=== PATIENT | male | born 1975 | race Two or more races ===

== ENCOUNTER 2025-01-21 02:44 | Observation (INO) | payer MEDICAID, SELFPAY ==
[2025-01-21] VITALS (10 sets, daily range): BP systolic 133–175; BP diastolic 82–104; PULSE 85–124; RESP 16–22; TEMP 36.4–37; O2SAT 98–100; BMI 31.0; BMI 28.7
--- NOTE | 2025-01-21 03:31 | PD.EDRME ---
Rapid Medical Screening Exam E Arrival date/time: 01/21/25 02:44 49M with history of DM (on insulin), HTN, CAD (s/p CABG), and daily marijuana use presents to ED with several days of epigastric pain and N/V. Patient hasn't had pancreatitis or DKA before. Chief Complaint: Abdominal Pain Vital signs: Vital Signs Temperature 97.9 F 01/21/25 03:02 Pulse Rate 124 H 01/21/25 03:02 Respiratory Rate 22 H 01/21/25 03:02 Blood Pressure 148/103 H 01/21/25 03:02 Pulse Oximetry (%) 98 01/21/25 03:02 Oxygen Delivery Method Room Air 01/21/25 03:02
[2025-01-21 03:56] LABS: Lactate (Lactic Acid) 3.4 mMol/L (0.4-2.0)
[2025-01-21 03:57] LABS: Base Excess, Venous -4 (-3-3); O2 Saturation, Venous 52 % (96-97); PCO2, Venous 22 mmHg (36-56); PO2, Venous 25 mmHg (15-58); pH, Venous 7.48 (7.33-7.66)
[2025-01-21 04:00] LABS: Basophils % (Auto) 0 % (0-2.5); Eosinophils % (Auto) 0 % (0-10); Hematocrit 48.3 % (41.0-53.0); Hemoglobin 17.2 g/dL (13.5-16.0); Immature Granulocytes % (Auto) 0 % (0-0); Immature Granulocytes Auto 0.02 Thou/mm3 (0.00-0.00); Lymphocytes # (Auto) 1.2 Thou/mm3 (1.0-4.8); Lymphocytes % (Auto) 17 % (10-50); Mean Corpuscular HGB Conc 35.6 g/dl (31.0-37.0); Mean Corpuscular Hemoglobin 29.7 pg (25.0-35.0); Mean Corpuscular Volume 83 fL (80-100); Monocytes # (Auto) 0.5 Thou/mm3 (0.0-0.8); Monocytes % (Auto) 6 % (0-12); Neutrophils # (Auto) 5.8 Thou/mm3 (1.8-7.7); Neutrophils % (Auto) 77 % (37-80); Nucleated Red Blood Cell % 0 /100 WBC (0); Platelet Count 231 Thou/mm3 (140-440); RDW Standard Deviation 37.1 fL (35.1-43.9); White Blood Count 7.5 Thou/mm3 (3.8-10.6)
[2025-01-21 04:17] LABS: Beta Hydroxybutyrate 4.4 mmol/L (<0.6)
[2025-01-21 04:35] LABS: Alanine Aminotransferase 14 U/L (10-49); Albumin, Serum 4.7 gm/dL (3.5-5.0); Albumin/Globulin Ratio 1.3 (1.2-2.2); Alkaline Phosphatase 101 U/L (46-116); Anion Gap 19 (7-16); Aspartate Amino Transferase < 8 U/L (0-34); BUN/Creatinine Ratio 16 Ratio (12-20); Blood Urea Nitrogen 51 mg/dL (9-23); Carbon Dioxide 15.8 mMol/L (20.0-31.0); Chloride 96 mMol/L (98-107); Creatinine (Component) 3.2 mg/dL (0.6-1.3); Globulin 3.7 gm/dL (2.3-3.5); Lipase 140 U/L (12-53); Magnesium 2.1 mg/dL (1.6-2.6); Osmolality,Calculated 297 (275-295); Phosphorous 2.4 mg/dL (2.4-5.1); Potassium 5.8 mMol/L (3.4-5.1); Procalcitonin 0.08 ng/ml (0.0-0.49); Sodium 131 mMol/L (136-145); Total Protein 8.4 gm/dL (5.7-8.2); Triglycerides 277 mg/dL (30-150); eGFR 23 See Note
[2025-01-21 04:38] LABS: Glucose 479 mg/dL (74-106)
--- NOTE | 2025-01-21 04:41 | XR_ITS ---
Examination: CT abdomen and pelvis without contrast. Coronal 3-D reconstructions. Sagittal 2-D reconstructions. Date and time of exam:January 21, 2025 0457 hrs. Indications: Abdominal pain, vomiting elevated lipase and renal insufficiency on laboratory examination today today, CTDI: vol (mGy): 9.28 DLP: (mGycm): 524 Technique: Axial images of the abdomen have been obtained, 3 mm slice thickness Intravenous contrast material has not been administered. Low dose protocols were performed. One or more of the following dose reduction techniques were used; automated exposure control, adjustment of the mA and/or KV according to patient size, use of iterative reconstruction technique. Findings: Soft opacities in the right lower lobe consistent with pneumonia. No liver or splenic lesion. No gallstones. No pancreatic edema. Renal arterial calcifications. Normal appendix. No bowel obstruction Intact urinary bladder Impression: Right lower lobe pneumonia. Negative for pancreatitis
--- NOTE | 2025-01-21 05:24 | PRELIM_ITS ---
CT scan of the abdomen and pelvis without intravenous contrast (axial sections with sagittal and coronal reformats) January 21, 2025 0457 hours Clinical History: Elevated lipase and Cr Comparison: None. Findings: Small groundglass opacities in the right lower lobe. The liver, gallbladder, pancreas, spleen, kidneys and adrenals are unremarkable on this noncontrast study. No evidence of bowel obstruction. The appendix is within normal limits. There is no mesenteric or retroperitoneal adenopathy. The urinary bladder is unremarkable. There is no free fluid or free air. The osseous structures are unremarkable. Impression: No evidence of acute pancreatitis. Small groundglass opacities in the right lower lobe, probably infectious/inflammatory in etiology. Consider correlation with imaging of the chest. Report Electronically Signed By: Hank Molina 01/21/2025 5:23:39 AM [EST]
[2025-01-21] MEDS: DiphenhydrAMINE INJ 50 MG/ML VIAL 12.5 MG IVP (05:53)
[2025-01-21] MEDS: METOCLOPRAMIDE INJ 5 MG/ML VIAL 2 ML 10 MG IVP (05:53)
[2025-01-21] MEDS: INSULIN HUM REGULAR 1 UNIT/0.01 ML (PER UNIT) 10 UNIT IV (05:54)
[2025-01-21] MEDS: RINGERS LACTATED 1000 ML 1,000 ML 999 ML IV (05:54)
[2025-01-21 06:53] LABS: Reflex Lactate? Y
[2025-01-21] MEDS: INSULIN HUM REGULAR 1 UNIT/0.01 ML (PER UNIT) 5 UNIT IV (07:24)
[2025-01-21] MEDS: SODIUM CHLORIDE 0.9% 1000 ML 1,000 ML 999 ML IV (07:24)
--- NOTE | 2025-01-21 08:05 | PD.EDABDPN ---
ED Abdominal Pain RME/HPI General Chief Complaint: Abdominal Pain Stated complaint: ABD PAIN ,VOMITING Time seen by provider: 01/21/25 06:47 Arrival date/time: 01/21/25 02:44 RME / HPI RME / HPI narrative: 01/21/25 02:44 49M with history of DM (on insulin), HTN, CAD (s/p CABG), and daily marijuana use presents to ED with several days of epigastric pain and N/V. Patient hasn't had pancreatitis or DKA before. DR. MATUTE MAIN ED EVALUATION: 49 year old male with past medical history significant for diabetes type 2, hypertension, hypercholesterolemia, and marijuana use presents to the Emergency Department with complaints of abdominal pain, nausea and vomiting. Onset of symptoms last Saturday, 7 days ago. He states that he has been sick with vomiting and has not taken his diabetes medications, neither the morning pill nor the night insulin shot. Patient also reports chills but no fevers or sweating. Related Data Home Medications ?Medication ?Instructions ?Recorded ?Confirmed amlodipine 10 mg tablet (Norvasc) 10 mg PO QDAY #0 tabs 04/12/17 01/21/25 clopidogrel 75 mg tablet (Plavix) 75 mg PO QDAY #0 tabs 04/12/17 01/21/25 famotidine 20 mg tablet (Pepcid) 20 mg PO QDAY #0 tabs 04/12/17 01/21/25 metoprolol tartrate 25 mg tablet 50 mg PO BID #0 tabs 04/12/17 01/21/25 glipizide 10 mg tablet 10 mg PO ACBR #0 tabs 04/13/17 01/21/25 valsartan 160 mg tablet (Diovan) 160 mg PO QDAY #0 tabs 04/13/17 01/21/25 atorvastatin 40 mg tablet mg 01/21/25 insulin glargine 100 unit/mL (3 unit subcut 01/21/25 mL) subcutaneous pen (Basaglar KwikPen U-100 Insulin) sitagliptin phosphate 100 mg mg 01/21/25 tablet (Januvia) Previous Rx's ?Medication ?Instructions ?Recorded Lactobacillus rhamnosus GG 10 1 cap PO BID PRN bid #14 caps 04/14/17 billion cell capsule (Culturelle) Allergies Allergy/AdvReac Type Severity Reaction Status Date / Time No Known Allergies Allergy Verified 01/21/25 03:05 Review of Systems Review of Systems Systems Reviewed: All systems reviewed, normal except as documented Narrative Review of Systems: GEN: No fever, + chills, no weight loss EYES: No discharge, no visual changes, no pain HEENT: No ear pain, no congestion, no sore throat PULM: No shortness of breath, no cough, no congestion CV: No chest pain, no dyspnea on exertion, no palpitations GI: + nausea, + vomiting, no diarrhea, + abdominal pain, no constipation : No frequency, no urgency and no dysuria MUSC/SKEL: No joint pain, no back pain SKIN: No rash PSYCH: No hallucinations, no depression HEME/LYMPH: No easy bleeding or bruising tendencies NEURO: No weakness, no headache Past Medical History Social History SMOKING STATUS: Never smoker SUBSTANCE USE: does not use ALCOHOL: Never ED Exam Narrative Physical exam: GENERAL APPEARANCE: alert and oriented x 4, well-developed, well-nourished, no acute distress VITALS: All vitals were reviewed and the pulse ox is 99% on room air, which is normal according to my interpretation. HEENT: Normocephalic, atraumatic; pupils equal, round, reactive to light; EOMI; mucous membranes pink, moist; oropharynx clear NECK: Supple LUNGS: CTABL; no wheezes, no rales, no rhonchi HEART: Regular rate, regular rhythm; normal S1, S2; no murmurs ABDOMEN: non distended; normal BS; soft, no tenderness, no guarding, no rebound; no masses, no organomegaly, no hernia BACK: no CVA tenderness EXTREMITIES: atraumatic; no edema NEUROLOGIC: awake; alert and oriented x4; cranial nerves II-XII grossly intact; no focal sensory or motor deficits PSYCHIATRIC: appropriate mood and affect SKIN: warm, dry, normal color; no rashes Course Quality Measures none Orders Category Date Time Status Bedside Blood Glucose Q1HR Care 01/21/25 06:49 Completed Blood glucose [Bedside Blood Glucose] NOW Care 01/21/25 03:06 Completed EKG (ED ONLY) *Do not use* NOW Care 01/21/25 03:06 Completed Insert IV NOW Care 01/21/25 03:[address] abdomen pelvis wo con Stat Exams 01/21/25 04:41 Completed EKG (ED Only) Stat Exams 01/21/25 03:06 Ordered BMP [Basic Metabolic Panel] Stat Lab 01/21/25 10:56 Completed Beta Hydroxybutyrate Stat Lab 01/21/25 03:50 Completed CBC Stat Lab 01/21/25 03:50 Completed CMP [Comprehensive Metabolic Panel] Stat Lab 01/21/25 03:50 Completed Drug Screen,Urine Stat Lab 01/21/25 08:00 Completed Lactate (Lactic Acid) Stat Lab 01/21/25 03:50 Completed Lactic Acid, 3 HR Stat Lab 01/21/25 07:44 Completed Lipase Stat Lab 01/21/25 03:50 Completed Magnesium Stat Lab 01/21/25 03:50 Completed Phosphorous Stat Lab 01/21/25 03:50 Completed Procalcitonin Stat Lab 01/21/25 03:50 Completed Triglycerides Stat Lab 01/21/25 03:50 Completed Urinalysis, C/S if Indicated Stat Lab 01/21/25 08:00 Completed VBG [Venous Blood Gas] Stat Lab 01/21/25 03:50 Completed DiphenhydrAMINE INJ [Benadryl Inj] Med 01/21/25 03:30 Discontinued 12.5 mg IVP X1 ONE Insulin Regular Med 01/21/25 04:41 Discontinued 10 unit IV X1 ONE Insulin Regular Med 01/21/25 07:15 Discontinued 5 unit IV X1 ONE Metoclopramide Inj [Reglan Inj] Med 01/21/25 03:30 Discontinued 10 mg IVP X1 ONE Ringers Lactated 1000 ml [Lactated Ringers] 1,000 ml Med 01/21/25 03:30 Discontinued IV 999 mls/hr Sodium Chloride 0.9% 1000 ml [Ns] 1,000 ml Med 01/21/25 06:48 Discontinued IV 999 mls/hr Vital Signs Vital signs: Vital Signs Temperature 97.9 F 01/21/25 03:02 Pulse Rate 124 H 01/21/25 03:02 Respiratory Rate 22 H 01/21/25 03:02 Blood Pressure 148/103 H 01/21/25 03:02 Pulse Oximetry (%) 98 01/21/25 03:02 Oxygen Delivery Method Room Air 01/21/25 03:02 Procedures -ED EKG Interpretation #1: Date of EK01/21/25 Time of EK:54 Rate: 127 Interpretation: Interpreted by me Additional EKG comment: sinus rhythm, rate 127, Q wave in lead 3 Abdominal Pain MDM MDM Narrative MDM Narrative:: I, Michelle Guevara, am scribing for and in the presence of Dr. Matute. Patient data External records reviewed:: [facility] previous records (Reviewed last admission discharge dated 04/14/17, patient admitted for the following: Dog bite, fracture of the distal phalanx of right 4th digit) Clinical information provided by:: patient Social determinants that could affect healthcare access:: none (marijuana use) Patient has the following chronic illnesses:: Diabetes type 2, hypertension, hypercholesterolemia How is presenting disease/condition affected by chronic disease/condition?: exacerbated by Evaluation data The following diagnostics were reviewed and interpreted by me:: lab results, radiology exam(s) and EKG tracing(s) (EKG#1: EKG at 0254 hours. Interpreted by me: sinus rhythm, rate 127, Q wave in lead 3) Lab and/or radiology exams considered but not ordered:: none Interpretation Summary: Procedure(s): CT abdomen pelvis wo [facility] Accession Number(s): [id number] cc: Albert Gil MD; Hoang Olson MD; Ha Box PA-C~ Examination: CT abdomen and pelvis without contrast. Coronal 3-D reconstructions. Sagittal 2-D reconstructions. Date and time of exam:January 21, 2025 0457 hrs. Indications: Abdominal pain, vomiting elevated lipase and renal insufficiency on laboratory examination today today, CTDI: vol (mGy): 9.28 DLP: (mGycm): 524 Technique: Axial images of the abdomen have been obtained, 3 mm slice thickness Intravenous contrast material has not been administered. Low dose protocols were performed. One or more of the following dose reduction techniques were used; automated exposure control, adjustment of the mA and/or KV according to patient size, use of iterative reconstruction technique. Findings: Soft opacities in the right lower lobe consistent with pneumonia. No liver or splenic lesion. No gallstones. No pancreatic edema. Renal arterial calcifications. Normal appendix. No bowel obstruction Intact urinary bladder Impression: Right lower lobe pneumonia. Negative for pancreatitis Dictated By: Hoang Olson MD Medications / Prescriptions Medications or Prescriptions considered but not ordered:: none Medication administrations:: Medication Administration History Discontinued Medications Acetaminophen (Acetaminophen 325 Mg Tablet) 650 mg PO Q6H PRN PRN Reason: Fever >101.5 Stop: 02/20/25 12:17 Acetaminophen (Acetaminophen 325 Mg Tablet) 650 mg PO Q6H PRN PRN Reason: PAIN SCALE 1-3 (mild Stop: 02/20/25 12:17 Hydrocodone Bitart/Acetaminophen (Hydrocodone/Apap 10/325 Tab) 1 tab PO Q4H PRN PRN Reason: PAIN SCALE 4-6 (Moderate Stop: 01/26/25 12:17 Amlodipine Besylate (Amlodipine Besylate 5 Mg Tablet) 10 mg PO QDAY COUNTS INCLUDE 234 BEDS AT THE [facility] Stop: 02/21/25 08:59 Last Admin: 01/23/25 08:27 Dose: 10 mg Documented By: Admin: 01/22/25 08:28 Dose: 10 mg Documented By: NAGA Atorvastatin Calcium (Atorvastatin Calcium 10 Mg Tablet) 40 mg PO HS COUNTS INCLUDE 234 BEDS AT THE [facility] Stop: 02/20/25 20:59 Last Admin: 01/22/25 20:36 Dose: 40 mg Documented By: Admin: 01/21/25 21:54 Dose: 40 mg Documented By: RASHAD Clopidogrel Bisulfate (Clopidogrel Bisulfate 75 Mg Tablet) 75 mg PO QDAY COUNTS INCLUDE 234 BEDS AT THE [facility] Stop: 02/21/25 08:59 Last Admin: 01/23/25 08:27 Dose: 75 mg Documented By: Admin: 01/22/25 08:28 Dose: 75 mg Documented By: NAGA Dextrose (Dextrose 50%-Water Inj 50 Ml Syringe) 25 ml IV Q15MIN PRN PRN Reason: BG 50-70 responsive npo pt Stop: 02/20/25 12:17 Dextrose (Dextrose 50%-Water Inj 50 Ml Syringe) 50 ml IV Q15MIN PRN PRN Reason: BG <50 OR BG <70 & pt unresponsive Stop: 02/20/25 12:17 Diphenhydramine HCl (Diphenhydramine Inj 50 Mg/Ml Vial) 12.5 mg IVP X1 ONE Stop: 01/21/25 03:31 Last Admin: 01/21/25 05:53 Dose: 12.5 mg Documented By: MIRIAM Enoxaparin Sodium (Enoxaparin Sod Inj 40 Mg/0.4 Ml Syringe) 40 mg SC QDAY COUNTS INCLUDE 234 BEDS AT THE [facility] Stop: 02/05/25 08:59 Glucagon (Glucagon Inj 1 Mg Vial) 1 mg IM Q15MIN PRN PRN Reason: BG <70, and no IV access Heparin Sodium (Porcine) (Heparin Sod Inj 5000 Unit/Ml Vial) 5,000 unit SC BID ALEXANDRA Stop: 02/04/25 20:59 Last Admin: 01/23/25 08:28 Dose: 5,000 unit Documented By: TD Co-signed By: DUC Admin: 01/22/25 20:35 Dose: 5,000 unit Documented By: RC Co-signed By: MLYumiko Admin: 01/22/25 08:30 Dose: 5,000 unit Documented By: NAGA Co-signed By: DENICE Admin: 01/21/25 21:54 Dose: 5,000 unit Documented By: RASHAD Co-signed By: AM Lactated Ringer's (Lactated Ringers) 1,000 mls @ 999 mls/hr IV .Q1H1M ONE Stop: 01/21/25 04:30 Last Infusion: 01/21/25 06:55 Dose: Infused Documented By: DUC(2) Admin: 01/21/25 05:54 Dose: 999 mls/hr Documented By: MIRIAM Sodium Chloride (Ns) 1,000 mls @ 999 mls/hr IV .Q1H1M ONE Stop: 01/21/25 07:48 Last Infusion: 01/21/25 08:48 Dose: Infused Documented By: DUC(2) Admin: 01/21/25 07:24 Dose: 999 mls/hr Documented By: DUC(2) Lactated Ringer's (Lactated Ringers) 1,000 mls @ 200 mls/hr IV .Q5H COUNTS INCLUDE 234 BEDS AT THE [facility] Stop: 02/20/25 12:29 Last Admin: 01/22/25 16:26 Dose: Not Given Documented By: NAGA Non-Admin Reason: Cancelled by Provider Admin: 01/22/25 06:33 Dose: 200 mls/hr Documented By: Infusion: 01/22/25 06:16 Dose: Infused Documented By: Admin: 01/22/25 01:16 Dose: 200 mls/hr Documented By: Infusion: 01/22/25 00:15 Dose: Infused Documented By: Admin: 01/21/25 19:15 Dose: 200 mls/hr Documented By: Infusion: 01/21/25 19:07 Dose: Infused Documented By: Admin: 01/21/25 14:07 Dose: 200 mls/hr Documented By: DUC(2) Magnesium Sulfate (Magnesium Sulfate Ivpb) 2 gm in 50 mls @ 25 mls/hr IV X1 ONE Stop: 01/22/25 09:58 Last Admin: 01/22/25 08:27 Dose: 25 mls/hr Documented By: NAGA Lactated Ringer's (Lactated Ringers) 1,000 mls @ 100 mls/hr IV .Q10H ALEXANDRA Stop: 02/21/25 09:08 Last Admin: 01/23/25 04:37 Dose: 100 mls/hr Documented By: Infusion: 01/23/25 04:37 Dose: Infused Documented By: Admin: 01/22/25 19:29 Dose: 100 mls/hr Documented By: Infusion: 01/22/25 19:29 Dose: Infused Documented By: Admin: 01/22/25 10:13 Dose: 100 mls/hr Documented By: NAGA Insulin Glargine (Insulin Glargine (Lantus) 5 Unit/0.05 Ml (Per 5 Units)) 45 unit SC QDAY COUNTS INCLUDE 234 BEDS AT THE [facility] Stop: 02/20/25 12:29 Last Admin: 01/23/25 08:28 Dose: 45 unit Documented By: ALF Co-signed By: DUC Admin: 01/22/25 08:30 Dose: 45 unit Documented By: NAGA Co-signed By: DENICE Admin: 01/21/25 14:05 Dose: 45 unit Documented By: DUC(2) Co-signed By: FABIOLA Insulin Human Lispro (Insulin Lispro (Admelog) 1 Unit/0.01 Ml Unit) 0 unit SC Q6H ALEXANDRA; Protocol Stop: 02/20/25 12:29 Last Admin: 01/22/25 05:58 Dose: Not Given Documented By: RASHAD Non-Admin Reason: Patient Refused Admin: 01/22/25 01:04 Dose: Not Given Documented By: RASHAD Non-Admin Reason: Per Protocol Admin: 01/21/25 17:52 Dose: 2 unit Documented By: DONNY Co-signed By: CHINMAY Admin: 01/21/25 14:06 Dose: 5 unit Documented By: DUC(2) Co-signed By: FABIOLA Insulin Human Lispro (Insulin Lispro (Admelog) 1 Unit/0.01 Ml Unit) 0 unit SC AC COUNTS INCLUDE 234 BEDS AT THE [facility]; Protocol Stop: 02/21/25 09:14 Last Admin: 01/22/25 16:49 Dose: 2 unit Documented By: NAGA Co-signed By: SCARLETT Admin: 01/22/25 11:56 Dose: 5 unit Documented By: NAGA Co-signed By: SCARLETT Admin: 01/22/25 10:07 Dose: 5 unit Documented By: NAGA Co-signed By: ANA Insulin Human Lispro (Insulin Lispro (Admelog) 1 Unit/0.01 Ml Unit) 0 unit SC ACHS ALEXANDRA; Protocol Stop: 02/21/25 21:14 Last Admin: 01/23/25 07:27 Dose: Not Given Documented By: TD Non-Admin Reason: Per Protocol Admin: 01/22/25 21:24 Dose: 4 unit Documented By: JULIA Co-signed By: BRANDO Insulin Human Regular (Insulin Hum Regular 1 Unit/0.01 Ml (Per Unit)) 10 unit IV X1 ONE Stop: 01/21/25 04:42 Last Admin: 01/21/25 05:54 Dose: 10 unit Documented By: MIRIAM Co-signed By: JULIA(2) Insulin Human Regular (Insulin Hum Regular 1 Unit/0.01 Ml (Per Unit)) 5 unit IV X1 ONE; Protocol Stop: 01/21/25 07:16 Last Admin: 01/21/25 07:24 Dose: 5 unit Documented By: DUC(2) Co-signed By: NEYMAR Metoclopramide HCl (Metoclopramide Inj 5 Mg/Ml Vial 2 Ml) 10 mg IVP X1 ONE; Protocol Stop: 01/21/25 03:31 Last Admin: 01/21/25 05:53 Dose: 10 mg Documented By: MIRIAM Morphine Sulfate (Morphine Sulf Inj 10 Mg/Ml Vial) 2 mg IVP Q4H PRN PRN Reason: PAIN SCALE 7-10 (Severe Stop: 01/26/25 12:17 Ondansetron HCl (Ondansetron Inj 2 Mg/Ml Inj 2 Ml) 4 mg IV Q6H PRN; Protocol PRN Reason: NAUSEA OR VOMITING Stop: 02/20/25 12:17 Pantoprazole Sodium (Pantoprazole 40 Mg Tablet) 40 mg PO QDAY ALEXANDRA Stop: 02/20/25 12:29 Last Admin: 01/23/25 08:27 Dose: 40 mg Documented By: Admin: 01/22/25 08:28 Dose: 40 mg Documented By: Admin: 01/21/25 14:07 Dose: 40 mg Documented By: CS(2) see above Consultations Consultation(s) initiated? (list below): Yes Consultation #1 (Physician, Specialty, Details): Discussed test HPI, PMHx, lab, radiology results and/or management with hospitalist. Will admit for further evaluation and management. Accepts patient for admission. Time: 11:37 Diagnosis Differential diagnosis abdominal pain: abdominal pain, diverticulitis, pancreatitis and other (DKA, medication noncomplaince) Most likely diagnosis given after review of the tests above:: GLORIA Dehydration Hyperglycemia Diabetes Admission Indicated Admission indicated?: indicated Admission Request Was there a request for admission?: Yes Admission Attestation Admission request attestation: Discussed case with [] from Hospitalist service regarding admission. Discussed patients ED course, exam findings, labs, and radiology results. The Hospitalist [agrees,declines] to accept the patient for admission. Disposition Plan Disposition Plan: Admit Discharge Plan Plan Patient Disposition: Other Care w/in Hosp ([facility]) Problem List Clinical Impression: DM (diabetes mellitus), Acute kidney injury, Dehydration, Hyperglycemia Patient/Caregiver Discharge Instructions Discharge Activity: resume usual activities
[2025-01-21 08:11] LABS: Collection Type, Urine Clean Catch; Squamous Epithelial Cell,Urine 0 /hpf (0-5)
[2025-01-21 08:26] LABS: Amphetamine/Methamp Scrn,U Negative (Negative); Barbiturate Screen,Urine Negative (Negative); Benzodiazepines Screen,Urine Negative (Negative); Benzoylecgonine Screen, Ur Negative (Negative); Fentanyl Screen,Urine Negative (Negative); Opiate Screen,Urine Negative (Negative); THC Screen,Urine Positive (Negative)
[2025-01-21 08:32] LABS: Bilirubin,Urine Negative (Negative); Blood,Urine Negative (Negative); Clarity,Urine Clear (Clear/Hazy); Color,Urine Lt-Yellow (Lt Yel-Yel); Culture Indicated,Urine Not Indicated; Glucose, Urine 4+ (Negative); Hyaline Casts,Urine 1 /hpf (0-1); Ketones,Urine 1+ (Negative); Leukocyte Esterase,Urine Negative (Negative); Nitrite,Urine Negative (Negative); PH,Urine 5.5 (5.0-7.0); Protein,Urine 1+ (Neg - Trace); RBC,Urine 1 /hpf (0-3); Specific Gravity,Urine 1.015 (1.001-1.035); Urobilinogen,Urine Negative mg/dL (0.0-1.0); WBC,Urine 1 /hpf (0-5)
[2025-01-21 11:18] LABS: Anion Gap 12 (7-16); BUN/Creatinine Ratio 16 Ratio (12-20); Blood Urea Nitrogen 49 mg/dL (9-23); Calcium 9.4 mg/dL (8.3-10.6); Carbon Dioxide 20.8 mMol/L (20.0-31.0); Chloride 104 mMol/L (98-107); Estimated Creatinine Clearance 32.9 mL/min (>60); Glucose 360 mg/dL (74-106); Osmolality,Calculated 301 (275-295); Sodium 137 mMol/L (136-145); eGFR 25 See Note
--- NOTE | 2025-01-21 13:37 | PC.CC ---
Patient is a 49 year-old male who presents to the hospital for Hyperglycemia. Reshma TRAN made [id number] contact with patient. ASW introduced self, role, and reason for visit. Patient appeared alert and oriented to self, location, and situation. Patient was pleasant and engaged in initial assessment. Patient confirmed information on demographics and reports to living at home with his significant other of 27 years, Mela Blair. Patient reports that should something happen to him and he is unable to make his own medical decisions he appoints Mela to make decisions for him. At home patient ambulates independently and does not use and DME. Patient is able to complete all ADLs. Patient receives primary care with Albert Gil and uses [facility] or [facility] for prescription medication. Upon discharge patient plans to return home. tax services intern to follow up with any discharge needs.
[2025-01-21] MEDS: INSULIN GLARGINE (Lantus) 5 UNIT/0.05 ML (PER 5 UNITS) 45 UNIT SC (14:05)
[2025-01-21] MEDS: INSULIN LISPRO (AdmeLOG) 1 UNIT/0.01 ML UNIT SC ×2 (14:06→17:52)
[2025-01-21] MEDS: RINGERS LACTATED 1000 ML 1,000 ML 200 ML IV ×2 (14:07→19:15)
[2025-01-21] MEDS: PANTOPRAZOLE 40 MG TABLET PO (14:07)
[2025-01-21 15:32] LABS: Lactate (Lactic Acid) 1.3 mMol/L (0.4-2.0)
[2025-01-21 16:15] LABS: Albumin, Serum 3.9 gm/dL (3.5-5.0); Anion Gap 12 (7-16); BUN/Creatinine Ratio 17 Ratio (12-20); Blood Urea Nitrogen 47 mg/dL (9-23); Calcium (Corrected) 9.1 mg/dL (8.5-10.1); Carbon Dioxide 23.1 mMol/L (20.0-31.0); Chloride 101 mMol/L (98-107); Creatinine (Component) 2.8 mg/dL (0.6-1.3); Estimated Creatinine Clearance 35.3 mL/min (>60); Glucose 343 mg/dL (74-106); Magnesium 2.1 mg/dL (1.6-2.6); Osmolality,Calculated 298 (275-295); Phosphorous 3.3 mg/dL (2.4-5.1); Potassium 4.4 mMol/L (3.4-5.1); Sodium 136 mMol/L (136-145); eGFR 27 See Note
--- NOTE | 2025-01-21 16:27 | PC.NURSE ---
Report taken from Jolanta in ED. Pt admitted to tele room 260
--- NOTE | 2025-01-21 16:53 | ESHP_ITS ---
<Statement entered by Ana Smith MD - 01/22/25 07:48> I discussed with and supervised the engineer intern physician who took care of this patient. I personally saw and examined the patient and discussed the assessment and plan with the entire medicine team, including my attending Dr. Sotelo , I agree with most of the assessment and plan as documented below Ana Smith M.D. PGY-2 Documentation for date of: 01/21/25 HPI History of Present Illness Chief complaint: Abdominal pain, nausea and vomiting History of present illness: 49 y/o M with PMHx significant for insulin-dependent diabetes, hypertension, coronary artery disease s/p CABG presented chief complaint of nausea vomiting x 1 week and new onset abdominal pain. Patient reports that his whole household recently had the flu, approximately 1 week ago patient developed nausea and vomiting at the time his family was sick. Patient has had poor intake since time, also complains of chills. During this time patient not taking his insulin due to poor appetite. Patient eventually developed abdominal pain prompting ED visit. Patient denies fevers, shortness of breath, hematemesis, chest pain. ED COURSE: Labs significant for: Blood glucose 479 down to 301, lactic acid 2.4 down to 3.0, tox cream positive for marijuana, UA unremarkable, Pro-Chace negative, lipase 140, triglycerides 277, BUN 51, creatinine 3.2, EGFR 23. Imaging significant for: CT abdomen/pelvis unremarkable, EKG unremarkable. Patient received 2 L IV fluid and bolus, 15 units regular insulin. PMH: Hypertension, diabetes, coronary artery disease s/p CABG PSH: Unknown surgery on hand, toe SH: Denies tobacco or alcohol use. Smokes weed daily. Allergies:?NKDA Medications: Plavix, amlodipine, aspirin, atorvastatin Review of Systems Review of Systems Systems Reviewed: All systems reviewed, normal except as documented Past Medical History Past Medical History Comments PMH COMMENT: PMH: Hypertension, diabetes, coronary artery disease s/p CABG PSH: Unknown surgery on hand, toe SH: Denies tobacco or alcohol use. Smokes weed daily. Allergies:?NKDA Medications: Plavix, amlodipine, aspirin, atorvastatin Exam Vital Signs Temp Pulse Resp BP Pulse Ox O2 Del Method 98.6 F 97 16 151/85 H 100 Room Air 01/21/25 16:12 01/21/25 16:12 01/21/25 16:12 01/21/25 16:12 01/21/25 16:12 01/21/25 16:12 Narrative Exam PE: Gen: Well-developed and well-nourished. Distressed. HEENT: NCAT, PERRLA, EOMI, anicteric conjunctivae. Dry mucous membranes. CVS: normal S1 and S2. RRR. No M/R/G. Resp: CTA B/L. No rhonchi, rales, crackles or wheezing. Abd: soft, non-tender, non-distended. MSK: Good ROM in BUE & BLE. No edema or rash. Neuro: CN II-XII grossly intact. Strength 5/5 in BUE & BLE. Alert and oriented x3. Psych: appropriate mood and affect. Results: Labs 01/22/25 04:58 01/22/25 04:58 Labs: Short CBC 01/21/25 Range/Units 03:50 WBC 7.5 (3.8-10.6) Thou/mm3 Hgb 17.2 H (13.5-16.0) g/dL Hct 48.3 (41.0-53.0) % Plt Count 231 (140-440) Thou/mm3 BMP 01/21/25 01/21/25 01/21/25 03:50 10:56 15:20 Sodium 131 L 137 136 Potassium 5.8 H 5.0 D 4.4 D Chloride 96 L 104 101 Carbon Dioxide 15.8 L 20.8 23.1 BUN 51 H 49 H 47 H Creatinine 3.2 H 3.0 H 2.8 H Glucose 479 H* 360 H D 343 H Calcium 10.0 9.4 9.0 Liver Function 01/21/25 01/21/25 Range/Units 03:50 15:20 Total Bilirubin 1.0 (0.3-1.2) mg/dL AST < 8 (0-34) U/L ALT 14 (10-49) U/L Alkaline Phosphatase 101 (46-116) U/L Albumin 4.7 3.9 D (3.5-5.0) gm/dL Urine 01/21/25 Range/Units 08:00 Urine Color Lt-Yellow (Lt Yel-Yel) Urine Clarity Clear (Clear/Hazy) Urine pH 5.5 (5.0-7.0) Ur Specific [place] 1.015 (1.001-1.035) Urine Protein 1+ A (Neg - Trace) Urine Glucose (UA) 4+ A (Negative) ABG Interpretation ABG results: 01/21/25 03:50 VBG pH 7.48 VBG pCO2 22 L VBG pO2 25 VBG Base Excess -4 L Quality Measures Quality Measures VTE prophylaxis Medications Home Medications and Allergies Home Medications ?Medication ?Instructions ?Recorded ?Confirmed ?Type amlodipine 10 mg tablet (Norvasc) 10 mg PO QDAY #0 tab s 04/12/17 01/21/25 History clopidogrel 75 mg tablet (Plavix) 75 mg PO QDAY #0 tab s 04/12/17 01/21/25 History famotidine 20 mg tablet (Pepcid) 20 mg PO QDAY #0 tabs 04/12/17 01/21/25 History metoprolol tartrate 25 mg tablet 50 mg PO BID #0 tabs 04/12/17 01/21/25 History glipizide 10 mg tablet 10 mg PO ACBR #0 tabs 01/21/25 History valsartan 160 mg tablet (Diovan) 160 mg PO QDAY #0 tab s 04/13/17 01/21/25 History atorvastatin 40 mg tablet mg 01/21/25 History insulin glargine 100 unit/mL (3 unit subcut 01/21/25 History mL) subcutaneous pen (Basaglar KwikPen U-100 Insulin) lisinopril 20 tab PO BID 01/21/25 History mg-hydrochlorothiazide 25 mg tablet metoprolol tartrate 50 mg tablet mg 01/21/25 History sitagliptin phosphate 100 mg mg 01/21/25 History tablet (Januvia) Allergies Allergy/AdvReac Type Severity Reaction Status Date / Time No Known Allergies Allergy Verified 01/21/25 03:05 Visit Medications Acetaminophen (Acetaminophen 325 Mg Tablet) 650 mg PO Q6H PRN PRN Reason: Fever >101.5 Stop: 02/20/25 12:17 Acetaminophen (Acetaminophen 325 Mg Tablet) 650 mg PO Q6H PRN PRN Reason: PAIN SCALE 1-3 (mild Stop: 02/20/25 12:17 Hydrocodone Bitart/Acetaminophen (Hydrocodone/Apap 10/325 Tab) 1 tab PO Q4H PRN PRN Reason: PAIN SCALE 4-6 (Moderate Stop: 01/26/25 12:17 Amlodipine Besylate (Amlodipine Besylate 5 Mg Tablet) 10 mg PO QDAY [facility] Stop: 02/21/25 08:59 Atorvastatin Calcium (Atorvastatin Calcium 10 Mg Tablet) 40 mg PO HS [facility] Stop: 02/20/25 20:59 Clopidogrel Bisulfate (Clopidogrel Bisulfate 75 Mg Tablet) 75 mg PO QDAY [facility] Stop: 02/21/25 08:59 Dextrose (Dextrose 50%-Water Inj 50 Ml Syringe) 25 ml IV Q15MIN PRN PRN Reason: BG 50-70 responsive npo pt Stop: 02/20/25 12:17 Dextrose (Dextrose 50%-Water Inj 50 Ml Syringe) 50 ml IV Q15MIN PRN PRN Reason: BG <50 OR BG <70 & pt unresponsive Stop: 02/20/25 12:17 Enoxaparin Sodium (Enoxaparin Sod Inj 40 Mg/0.4 Ml Syringe) 40 mg SC QDAY [facility] Stop: 02/05/25 08:59 Glucagon (Glucagon Inj 1 Mg Vial) 1 mg IM Q15MIN PRN PRN Reason: BG <70, and no IV access Lactated Ringer's (Lactated Ringers) 1,000 mls @ 200 mls/hr IV .Q5H [facility] Stop: 02/20/25 12:29 Last Admin: 01/21/25 14:07 Dose: 200 mls/hr Insulin Glargine (Insulin Glargine (Lantus) 5 Unit/0.05 Ml (Per 5 Units)) 45 unit SC QDAY [facility] Stop: 02/20/25 12:29 Last Admin: 01/21/25 14:05 Dose: 45 unit Insulin Human Lispro (Insulin Lispro (Admelog) 1 Unit/0.01 Ml Unit) 0 unit SC Q6H ALEXANDRA; Protocol Stop: 02/20/25 12:29 Last Admin: 01/21/25 14:06 Dose: 5 unit Morphine Sulfate (Morphine Sulf Inj 10 Mg/Ml Vial) 2 mg IVP Q4H PRN PRN Reason: PAIN SCALE 7-10 (Severe Stop: 01/26/25 12:17 Ondansetron HCl (Ondansetron Inj 2 Mg/Ml Inj 2 Ml) 4 mg IV Q6H PRN; Protocol PRN Reason: NAUSEA OR VOMITING Stop: 02/20/25 12:17 Pantoprazole Sodium (Pantoprazole 40 Mg Tablet) 40 mg PO QDAY [facility] Stop: 02/20/25 12:29 Last Admin: 01/21/25 14:07 Dose: 40 mg Discontinued Medications Diphenhydramine HCl (Diphenhydramine Inj 50 Mg/Ml Vial) 12.5 mg IVP X1 ONE Stop: 01/21/25 03:31 Last Admin: 01/21/25 05:53 Dose: 12.5 mg Lactated Ringer's (Lactated Ringers) 1,000 mls @ 999 mls/hr IV .Q1H1M ONE Stop: 01/21/25 04:30 Last Infusion: 01/21/25 06:55 Dose: Infused Sodium Chloride (Ns) 1,000 mls @ 999 mls/hr IV .Q1H1M ONE Stop: 01/21/25 07:48 Last Infusion: 01/21/25 08:48 Dose: Infused Insulin Human Regular (Insulin Hum Regular 1 Unit/0.01 Ml (Per Unit)) 10 unit IV X1 ONE Stop: 01/21/25 04:42 Last Admin: 01/21/25 05:54 Dose: 10 unit Insulin Human Regular (Insulin Hum Regular 1 Unit/0.01 Ml (Per Unit)) 5 unit IV X1 ONE; Protocol Stop: 01/21/25 07:16 Last Admin: 01/21/25 07:24 Dose: 5 unit Metoclopramide HCl (Metoclopramide Inj 5 Mg/Ml Vial 2 Ml) 10 mg IVP X1 ONE; Protocol Stop: 01/21/25 03:31 Last Admin: 01/21/25 05:53 Dose: 10 mg Assessment & Plan Plan 49 y/o M with PMHx significant for insulin-dependent diabetes, hypertension, coronary disease s/p CABG presented chief complaint of nausea vomiting x 1 week and new onset abdominal pain, admitted for prerenal GLORIA secondary to dehydration. #GLORIA on CKD, prerenal secondary to dehydration #Intractable nausea vomiting Patient presented with chief complaint nausea and vomiting x 1 week. Patient found to have GLORIA. BUN 52, creatinine 3.2, EGFR 23, above baseline. Baseline creatinine 1.5. Patient's reports poor oral intake due to intractable nausea and vomiting, dry mucous membranes on exam. Nausea and vomiting improved with IV antiemetics, patient able to tolerate sips of water. Patient received 2 L IV fluid bolus in ED. Patient has sick contacts of the flu, suspect nausea vomiting related to flu. Symptoms began over a week ago, supportive treatment. -Monitor daily renal function -IVF: LR at 200 mL/h -Avoid nephrotoxins -Renally dose meds -Zofran 4 mg IV every 6 hours as needed for nausea or vomiting -Clear liquid diet, advance as tolerated #Hyperglycemia #Insulin-dependent diabetes Patient has history of diabetes, reliant on insulin, takes 45 units of Lantus daily. Patient stopped taking insulin due to poor p.o. intake, on admission glucose was 479, decreased to 301 with 15 units regular insulin. DKA ruled out, patient non acidic, anion gap closed. -ISS -A1c ordered, follow-up -Resume home Lantus 45 units SQ at bedtime #Coronary artery disease s/p CABG Patient history as stated -Resume home meds: Atorvastatin, aspirin, Plavix #HTN, patient history Patient history as stated. -Resume home meds: Amlodipine 10 mg p.o. daily DVT prophylaxis: Heparin GI prophylaxis: Protonix Diet: Clear liquid, advance as tolerated Lines: Peripheral IV Code status: Full code Plan of care discussed with senior resident Dr. Smith PGY?[address] Sotelo. Juan Cummings MD PGY?1 Attending Provider Attestation/Addendum I attest that I was physically present for the evaluation, physical examination, lab and imaging review of the patient with the residents. I discussed the case with the residents and agree with the findings and plans of care as documented above. 5 patient is a 49 years old male with past medical history of diabetes, hypertension, CAD status post CABG who presented to the ED with complaint of nausea and vomiting for 1 week. Multiple members of his household recently had flu and patient also started having nausea and vomiting at the same time. He has been having poor oral intake and has not been able to take his insulin. In the ED, he was found to have blood glucose of 479, lactate 2.4, BUN/creatinine 51/3.2. Urine toxicology was positive for marijuana. Patient received 15 units of regular insulin in the ED, following which patient gap closed. We will admit the patient for management of hyperglycemia, dehydration, intractable nausea vomiting and GLORIA on CKD. We will start him on aggressive IV hydration with Ringer's lactate at 200 cc/h, IV antiemetics as needed, strict insulin regimen and monitor his glucose levels closely. Chon Sotelo MD
[2025-01-21 19:18] LABS: Lactate (Lactic Acid) 1.6 mMol/L (0.4-2.0)
[2025-01-21 20:09] LABS: Albumin, Serum 3.6 gm/dL (3.5-5.0); Anion Gap 10 (7-16); BUN/Creatinine Ratio 17 Ratio (12-20); Blood Urea Nitrogen 43 mg/dL (9-23); Calcium 8.6 mg/dL (8.3-10.6); Calcium (Corrected) 8.9 mg/dL (8.5-10.1); Carbon Dioxide 23.1 mMol/L (20.0-31.0); Chloride 100 mMol/L (98-107); Creatinine (Component) 2.6 mg/dL (0.6-1.3); Estimated Creatinine Clearance 36.6 mL/min (>60); Glucose 330 mg/dL (74-106); Magnesium 1.8 mg/dL (1.6-2.6); Osmolality,Calculated 290 (275-295); Phosphorous 2.5 mg/dL (2.4-5.1); Potassium 4.2 mMol/L (3.4-5.1); Sodium 133 mMol/L (136-145); eGFR 29 See Note
[2025-01-21] MEDS: ATORVASTATIN CALCIUM 10 MG TABLET 40 MG PO (21:54)
[2025-01-21] MEDS: HEPARIN SOD INJ 5000 UNIT/ML VIAL SC (21:54)
[2025-01-22] VITALS (8 sets, daily range): BP systolic 136–165; BP diastolic 73–88; PULSE 70–112; RESP 14–23; TEMP 36.2–36.7; O2SAT 97–99; BMI 29.9; BMI 28.6
[2025-01-22] MEDS: RINGERS LACTATED 1000 ML 1,000 ML 200 ML IV ×2 (01:16→06:33)
[2025-01-22 06:30] LABS: Basophils % (Auto) 0 % (0-2.5); Eosinophils % (Auto) 0 % (0-10); Hematocrit 36.9 % (41.0-53.0); Hemoglobin 13.1 g/dL (13.5-16.0); Immature Granulocytes % (Auto) 0 % (0-0); Immature Granulocytes Auto 0.02 Thou/mm3 (0.00-0.00); Lymphocytes # (Auto) 2.1 Thou/mm3 (1.0-4.8); Lymphocytes % (Auto) 28 % (10-50); Mean Corpuscular HGB Conc 35.5 g/dl (31.0-37.0); Mean Corpuscular Hemoglobin 30.3 pg (25.0-35.0); Mean Corpuscular Volume 85 fL (80-100); Monocytes # (Auto) 0.7 Thou/mm3 (0.0-0.8); Monocytes % (Auto) 9 % (0-12); Neutrophils # (Auto) 4.8 Thou/mm3 (1.8-7.7); Neutrophils % (Auto) 62 % (37-80); Nucleated Red Blood Cell % 0 /100 WBC (0); Platelet Count 166 Thou/mm3 (140-440); RDW Standard Deviation 38.5 fL (35.1-43.9); Red Blood Count 4.33 Miln/mm3 (4.50-5.90); White Blood Count 7.7 Thou/mm3 (3.8-10.6)
[2025-01-22 06:45] LABS: Glucose Estimated Average 338 mg/dL (80-131); Hemoglobin A1C 13.4 % Hgb (4.8-6.0)
[2025-01-22 07:23] LABS: Alanine Aminotransferase < 7 U/L (10-49); Albumin, Serum 3.2 gm/dL (3.5-5.0); Albumin/Globulin Ratio 1.2 (1.2-2.2); Alkaline Phosphatase 67 U/L (46-116); Anion Gap 9 (7-16); Aspartate Amino Transferase 12 U/L (0-34); BUN/Creatinine Ratio 15 Ratio (12-20); Bilirubin,Total 0.8 mg/dL (0.3-1.2); Blood Urea Nitrogen 33 mg/dL (9-23); Calcium 8.3 mg/dL (8.3-10.6); Calcium (Corrected) 8.9 mg/dL (8.5-10.1); Carbon Dioxide 24.7 mMol/L (20.0-31.0); Cardiac Risk Estimate 5.2 RATIO (4.0-6.7); Chloride 103 mMol/L (98-107); Cholesterol 115 mg/dL (132-200); Creatinine (Component) 2.2 mg/dL (0.6-1.3); Estimated Creatinine Clearance 44.1 mL/min (>60); Globulin 2.7 gm/dL (2.3-3.5); Glucose 162 mg/dL (74-106); HDL Cholesterol 22 mg/dL (40-60); LDL Cholesterol,Calculated 62 mg/dL (0-130); Magnesium 1.8 mg/dL (1.6-2.6); Osmolality,Calculated 285 (275-295); Phosphorous 2.8 mg/dL (2.4-5.1); Potassium 4.1 mMol/L (3.4-5.1); Sodium 137 mMol/L (136-145); Total Protein 5.9 gm/dL (5.7-8.2); Triglycerides 154 mg/dL (30-150); eGFR 36 See Note
[2025-01-22] MEDS: Magnesium Sulfate 2 GM Ivpb 2 GM/50 ML BAG IV (08:27)
[2025-01-22] MEDS: CLOPIDOGREL BISULFATE 75 MG TABLET PO (08:28)
[2025-01-22] MEDS: PANTOPRAZOLE 40 MG TABLET PO (08:28)
[2025-01-22] MEDS: amLODIPine BESYLATE 5 MG TABLET 10 MG PO (08:28)
[2025-01-22] MEDS: HEPARIN SOD INJ 5000 UNIT/ML VIAL SC ×2 (08:30→20:35)
[2025-01-22] MEDS: INSULIN GLARGINE (Lantus) 5 UNIT/0.05 ML (PER 5 UNITS) 45 UNIT SC (08:30)
[2025-01-22] MEDS: INSULIN LISPRO (AdmeLOG) 1 UNIT/0.01 ML UNIT SC ×4 (10:07→21:24)
[2025-01-22] MEDS: RINGERS LACTATED 1000 ML 1,000 ML 100 ML IV ×2 (10:13→19:29)
--- NOTE | 2025-01-22 15:33 | ESPR_ITS ---
Documentation for date of: 01/22/25 Subjective Subjective Interval history: No acute overnight events reported. Pt seen and examined at bedside. Pt denies any abdominal pain and tolerating diet well. Patient will continue with glargine 45 units, and will switch sliding scale insulin to from every 6 to AC with meals. Creatinine also is downtrending. Magnesium was slightly low, gave magnesium 2 g. Will also decrease patient's fluids to LR at 100 an hour. If patient is able to tolerate diet with no pain, anticipate discharge within 24 hours. Patient also is able to walk around and use the restroom, with no issues. Exam Vital Signs Temp Pulse Resp BP Pulse Ox O2 Del Method 98.1 F 71 14 154/73 H 98 Room Air 01/22/25 12:00 01/22/25 12:00 01/22/25 12:00 01/22/25 12:00 01/22/25 12:00 01/22/25 12:00 Narrative Exam General Appearance: Pt in mild acute distress laying in bed. HEENT: NC/AT, no scleral icterus, no conjunctival pallor, MMM Lungs: CTAB, no wheezes or crackles appreciated CVS: RRR, S1/S2 heard, no murmurs or rubs appreciated ABD: Soft, non-tender, non-distended, BS + in all 4 quadrants EXT: no deformity/edema/lesions/cyanosis/clubbing, radial pulses 2+ BL, DP pulses 2 + BL SKIN: Skin exam normal without any rashes. Neuro: A&O x 3. No gross neurological deficits. Motor and sensory grossly intact in B/L UL and LL. Psych: Appropriate mood and affect Objective Labs 01/22/25 04:58 01/22/25 04:58 Labs: Laboratory Results - last 24 hr 01/21/25 01/21/25 01/22/25 15:20 18:55 04:58 WBC 7.7 RBC 4.33 L Hgb 13.1 L D Hct 36.9 L D MCV 85 MCH 30.3 MCHC 35.5 RDW Std Deviation 38.5 Plt Count 166 D Neut % (Auto) 62 Lymph % (Auto) 28 [place] % (Auto) 9 Eos % (Auto) 0 Baso % (Auto) 0 Neut # (Auto) 4.8 Lymph # (Auto) 2.1 [place] # (Auto) 0.7 Eos # (Auto) 0.0 Baso # (Auto) 0.0 Immature Gran # (Auto) 0.02 H Absolute Nucleated RBC 0.00 Immature Gran % 0 Nucleated RBC % 0 Sodium 136 133 L 137 Potassium 4.4 D 4.2 4.1 Chloride 101 100 103 Carbon Dioxide 23.1 23.1 24.7 Anion Gap 12 10 9 BUN 47 H 43 H 33 H Creatinine 2.8 H 2.6 H 2.2 H Estim Creat Clear Calc 35.3 L 36.6 L 44.1 L eGFR 27 L 29 L 36 L BUN/Creatinine Ratio 17 17 15 Glucose 343 H [address] H [address] Glu mg/dL 338 H Hemoglobin A1c 13.4 H Calculated Osmolality 298 H 290 285 Lactic Acid 1.3 1.6 Calcium 9.0 8.6 8.3 Corrected Calcium 9.1 8.9 8.9 Phosphorus 3.3 2.5 2.8 Magnesium 2.1 1.8 1.8 Total Bilirubin 0.8 AST 12 ALT < 7 L Alkaline Phosphatase 67 D Total Protein 5.9 Albumin 3.9 D 3.6 3.2 L Globulin 2.7 Albumin/Globulin Ratio 1.2 Triglycerides 154 H Cholesterol 115 L LDL Cholesterol, Calc 62 HDL Cholesterol 22 L Cholesterol/HDL Ratio 5.2 ABG Interpretation ABG results: 01/21/25 03:50 VBG pH 7.48 VBG pCO2 22 L VBG pO2 25 VBG Base Excess -4 L Quality Measures Quality Measures VTE prophylaxis Assessment & Plan Assessment Current Active Medications: Generic Name Dose Route Start Last Admin Trade Name Guyq PRN Reason Stop Dose Admin Acetaminophen 650 mg 01/21/25 12:18 Acetaminophen 325 Mg Tablet PO 02/20/25 12:17 Q6H PRN Fever >101.5 Acetaminophen 650 mg 01/21/25 12:18 Acetaminophen 325 Mg Tablet PO 02/20/25 12:17 Q6H PRN PAIN SCALE 1-3 (mild Hydrocodone Bitart/Acetaminophen 1 tab 01/21/25 12:18 Hydrocodone/Apap 10/325 Tab PO 01/26/25 12:17 Q4H PRN PAIN SCALE 4-6 (Moderate Amlodipine Besylate 10 mg 01/22/25 09:00 01/22/25 08:28 Amlodipine Besylate 5 Mg Tablet PO 02/21/25 08:59 10 mg QDAY ALEXANDRA Administration Atorvastatin Calcium 40 mg 01/21/25 21:00 01/21/25 21:54 Atorvastatin Calcium 10 Mg Tablet PO 02/20/25 20:59 40 mg HS ALEXANDRA Administration Clopidogrel Bisulfate 75 mg 01/22/25 09:00 01/22/25 08:28 Clopidogrel Bisulfate 75 Mg Tablet PO 02/21/25 08:59 75 mg QDAY ALEXANDRA Administration Dextrose 25 ml 01/21/25 12:18 Dextrose 50%-Water Inj 50 Ml Syringe IV 02/20/25 12:17 Q15MIN PRN BG 50-70 responsive npo pt Dextrose 50 ml 01/21/25 12:18 Dextrose 50%-Water Inj 50 Ml Syringe IV 02/20/25 12:17 Q15MIN PRN BG <50 OR BG <70 & pt unresponsive Glucagon 1 mg 01/21/25 12:18 Glucagon Inj 1 Mg Vial IM Q15MIN PRN BG <70, and no IV access Heparin Sodium (Porcine) 5,000 unit 01/21/25 21:00 01/22/25 08:30 Heparin Sod Inj 5000 Unit/Ml Vial SC 02/04/25 20:59 5,000 unit BID ALEXANDRA Administration Lactated Ringer's 1,000 mls @ 100 mls/hr 01/22/25 09:09 01/22/25 10:13 Lactated Ringers IV 02/21/25 09:08 100 mls/hr .Q10H ALEXANDRA Administration Insulin Glargine 45 unit 01/21/25 12:30 01/22/25 08:30 Insulin Glargine (Lantus) 5 Unit/0.05 Ml (Per 5 Units) SC 02/20/25 12:29 45 unit QDAY ALEXANDRA Administration Insulin Human Lispro 0 unit 01/22/25 09:15 01/22/25 11:56 Insulin Lispro (Admelog) 1 Unit/0.01 Ml Unit SC 02/21/25 09:14 5 unit AC ALEXANDRA Administration Protocol Morphine Sulfate 2 mg 01/21/25 12:18 Morphine Sulf Inj 10 Mg/Ml Vial IVP 01/26/25 12:17 Q4H PRN PAIN SCALE 7-10 (Severe Ondansetron HCl 4 mg 01/21/25 12:18 Ondansetron Inj 2 Mg/Ml Inj 2 Ml IV 02/20/25 12:17 Q6H PRN NAUSEA OR VOMITING Protocol Pantoprazole Sodium 40 mg 01/21/25 12:30 01/22/25 08:28 Pantoprazole 40 Mg Tablet PO 02/20/25 12:29 40 mg QDAY ALEXANDRA Administration Plan 49 y/o M with PMHx significant for insulin-dependent diabetes, hypertension, coronary disease s/p CABG presented chief complaint of nausea vomiting x 1 week and new onset abdominal pain, admitted for intractable nausea vomiting in the setting of insulin noncompliance and abdominal pain. #Intractable nausea vomiting-improving #GLORIA on CKD, prerenal secondary to dehydration-improving Patient presented with chief complaint nausea and vomiting x 1 week. Patient found to have GLORIA. BUN 52, creatinine 3.2, EGFR 23, above baseline. Baseline creatinine 1.5. Patient's reports poor oral intake due to intractable nausea and vomiting, dry mucous membranes on exam. Nausea and vomiting improved with IV antiemetics, patient able to tolerate sips of water. Patient received 2 L IV fluid bolus in ED. Patient has sick contacts of the flu, suspect nausea vomiting related to flu. Symptoms began over a week ago, supportive treatment. Patient's creatinine on 01/22/2025 is 2.2 -Monitor daily renal function -IVF: LR at 100 mL/hour continue to monitor strict I's and O's -Avoid nephrotoxins -Renally dose meds -Zofran 4 mg IV every 6 hours as needed for nausea or vomiting -Patient on carb consistent diet tolerating well #Primary respiratory alkalosis with secondary metabolic acidosis-improving #Hyperglycemia-improving #Diabetes mellitus on chronic insulin therapy Patient has history of diabetes, reliant on insulin, takes 45 units of Lantus daily. Patient stopped taking insulin due to poor p.o. intake, on admission glucose was 479, decreased to 301 with 15 units regular insulin. DKA ruled out, patient non acidic, anion gap closed. A1c 13.4% -ISS AC with meals -Continue Lantus 45 units SQ at bedtime -Diabetes education referral, possible free style hipolito #Coronary artery disease s/p CABG CABG performed 2016, and placed on aspirin and Plavix. Patient lost to follow- up with Dr. Malin around . Patient takes home aspirin, Plavix, atorvastatin -Continue patient's home atorvastatin and Plavix -Will educate patient on importance of only taking either aspirin or Plavix status post CABG #HTN Patient history as stated. -Continue with amlodipine 10 mg p.o. daily Health maintenance: DVT prophylaxis: Heparin GI prophylaxis: Protonix Diet: Clear liquid, advance as tolerated Lines: Peripheral IV Code status: Full code Patient's plan and care discussed with my attending, Dr. Ashleigh Smith MD PGY-2 Attending Provider Attestation/Addendum I attest that I was physically present for the evaluation, physical examination, lab and imaging review of the patient with the residents. I discussed the case with the residents and agree with the findings and plans of care as documented above. At bedside today, patient discharge is feeling much better.? His nausea/vomiting have improved significantly.? Patient has started tolerating diet, we will continue to advance his diet as tolerated and slow down his IV fluid rate.? Repleted 2 g of magnesium. Vital signs are stable except for mild hypertension.? Continues to be on amlodipine, we will monitor closely and add antihypertensives if blood pressure continues to go up.? Kidney function noted to be improving slowly with IV fluids.? Blood glucose have been better controlled with the insulin regimen.? We will continue to monitor closely and adjust the regimen if.? If patient is able to tolerate his diet well and kidney function continues to improve we will plan for discharge tomorrow. Chon Sotelo MD
[2025-01-22] MEDS: ATORVASTATIN CALCIUM 10 MG TABLET 40 MG PO (20:36)
[2025-01-23] VITALS: BP 152/88; PULSE 72; PULSE 78; RESP 12; TEMP 36.6; O2SAT 97
[2025-01-23 04:00] VITALS: BP 159/82; PULSE 77; RESP 11; TEMP 36.6; O2SAT 98
[2025-01-23] MEDS: RINGERS LACTATED 1000 ML 1,000 ML 100 ML IV (04:37)
[2025-01-23 04:58] VITALS: PULSE 86
[2025-01-23 06:10] LABS: Basophils % (Auto) 0 % (0-2.5); Eosinophils % (Auto) 0 % (0-10); Hematocrit 39.5 % (41.0-53.0); Hemoglobin 14.1 g/dL (13.5-16.0); Immature Granulocytes % (Auto) 0 % (0-0); Immature Granulocytes Auto 0.02 Thou/mm3 (0.00-0.00); Lymphocytes # (Auto) 1.8 Thou/mm3 (1.0-4.8); Lymphocytes % (Auto) 25 % (10-50); Mean Corpuscular HGB Conc 35.7 g/dl (31.0-37.0); Mean Corpuscular Hemoglobin 30.3 pg (25.0-35.0); Mean Corpuscular Volume 85 fL (80-100); Monocytes # (Auto) 0.5 Thou/mm3 (0.0-0.8); Monocytes % (Auto) 8 % (0-12); Neutrophils # (Auto) 4.7 Thou/mm3 (1.8-7.7); Neutrophils % (Auto) 67 % (37-80); Nucleated Red Blood Cell % 0 /100 WBC (0); Platelet Count 178 Thou/mm3 (140-440); RDW Standard Deviation 37.1 fL (35.1-43.9); Red Blood Count 4.66 Miln/mm3 (4.50-5.90); White Blood Count 7.1 Thou/mm3 (3.8-10.6)
[2025-01-23 06:19] VITALS: BP 148/84; PULSE 84; RESP 18; TEMP 36.3; O2SAT 98
[2025-01-23 07:10] LABS: Alanine Aminotransferase 8 U/L (10-49); Albumin, Serum 3.4 gm/dL (3.5-5.0); Albumin/Globulin Ratio 1.3 (1.2-2.2); Alkaline Phosphatase 74 U/L (46-116); Anion Gap 9 (7-16); Aspartate Amino Transferase 15 U/L (0-34); BUN/Creatinine Ratio 12 Ratio (12-20); Bilirubin,Total 0.9 mg/dL (0.3-1.2); Blood Urea Nitrogen 22 mg/dL (9-23); Calcium 8.5 mg/dL (8.3-10.6); Carbon Dioxide 26.3 mMol/L (20.0-31.0); Chloride 104 mMol/L (98-107); Creatinine (Component) 1.9 mg/dL (0.6-1.3); Estimated Creatinine Clearance 51.1 mL/min (>60); Globulin 2.7 gm/dL (2.3-3.5); Glucose 101 mg/dL (74-106); Osmolality,Calculated 280 (275-295); Potassium 3.8 mMol/L (3.4-5.1); Sodium 139 mMol/L (136-145); Total Protein 6.1 gm/dL (5.7-8.2); eGFR 43 See Note
[2025-01-23 08:00] VITALS: BP 156/86; PULSE 73; PULSE 75; RESP 18; TEMP 36.1; O2SAT 99
[2025-01-23 08:27] VITALS: BP 156/86; PULSE 73
[2025-01-23] MEDS: amLODIPine BESYLATE 5 MG TABLET 10 MG PO (08:27)
[2025-01-23] MEDS: PANTOPRAZOLE 40 MG TABLET PO (08:27)
[2025-01-23] MEDS: CLOPIDOGREL BISULFATE 75 MG TABLET PO (08:27)
[2025-01-23] MEDS: HEPARIN SOD INJ 5000 UNIT/ML VIAL SC (08:28)
[2025-01-23] MEDS: INSULIN GLARGINE (Lantus) 5 UNIT/0.05 ML (PER 5 UNITS) 45 UNIT SC (08:28)
--- NOTE | 2025-01-23 12:52 | ESDS_ITS ---
Planned Discharge Date 01/23/25 DS: Providers Provider Date of admission: 01/21/25 12:18 Primary care physician: Albert Gil MD Admitting Provider: Cohn Sotelo MD Attending Provider on Admission: Chon Sotelo MD Consults: 01/21/25 12:32 Referral Registered Dietitian Routine Comment: Attending Provider on DC: Ana Smith MD Discharging Provider: Ana Smith MD DS: Diagnosis Problem List Completed Was Problem List Reviewed/Reconciled?: Yes Hospital Course Hospital Course Hospital course: Patient is a 49 y/o M with PMHx significant for insulin-dependent diabetes, hypertension, coronary disease s/p CABG presented chief complaint of new onset abdominal pain and admitted for intractable nausea/vomiting in the setting of insulin noncompliance on 01/21/25. Abdomen CT was negative for any pancreatitis, but did show right lower lobe PNA, however not clinically significant or objectively apparent on physical exam. While in the hospital, patient was given IV Insulin regular, fluids, and transitioned to subcutaneous insulin improving his acidosis and GLORIA. Patient's abdominal pain, n/v progressively improved, and able to tolerate his advancement of diet. Recent A1c is 13.4%. Pt seen and examined at bedside. Pt denies any complaints. Pt is medically cleared to be discharged today with the following instructions: Please see your Primary Care Provider within 1-2 weeks. Please take your home medications as prescribed except for the ones discontinued Please check your glucose daily and adjust your meals as needed. Discharge diagnoses treated during hospital stay: #Intractable nausea vomiting-improving #GLORIA on CKD, prerenal secondary to dehydration-improving #Primary respiratory alkalosis with secondary metabolic acidosis-improving #DKA r/o #Hyperglycemia-improving #Diabetes mellitus on chronic insulin therapy #Coronary artery disease s/p CABG #HTN Patient's plan and care discussed with my attending, Dr. Ashleigh Smith MD PGY-2 Status at Discharge Cognitive/behavioral status at discharge: stable Time Spent with Patient Time attestation: Total time spent providing and/or coordinating discharge services: Time spent: Less than 30 minutes Exam Vital Signs Temp Pulse Resp BP Pulse Ox O2 Del Method 97.0 F 73 18 156/86 H 99 Room Air 01/23/25 08:00 01/23/25 08:27 01/23/25 08:00 01/23/25 08:27 01/23/25 08:00 01/23/25 08:00 Narrative Exam General Appearance: Pt in no acute distress laying in bed. HEENT: NC/AT, no scleral icterus, no conjunctival pallor, MMM Lungs: CTAB, no wheezes or crackles appreciated CVS: RRR, S1/S2 heard, no murmurs or rubs appreciated ABD: Soft, non-tender, non-distended, BS + in all 4 quadrants EXT: no deformity/edema/lesions/cyanosis/clubbing, radial pulses 2+ BL, DP pulses 2 + BL SKIN: Skin exam normal without any rashes. Neuro: A&O x 3. No gross neurological deficits. Motor and sensory grossly intact in B/L UL and LL. Psych: Appropriate mood and affect Discharge Plan Plan Patient Disposition: HOME (Self Care) Care Plan Goals: Please see your Primary Care Provider within 1-2 weeks. Please take your home medications as prescribed except for the ones discontinued Please check your glucose daily and adjust your meals as needed. Prescriptions/Referrals Prescriptions/Med Rec: Continued clopidogrel [Plavix] 75 MG tablet 75 mg PO QDAY Qty: 0 famotidine [Pepcid] 20 MG tablet 20 mg PO QDAY Qty: 0 Patient Comments: TO SUPPRESS GASTRIC ACID SECRETION amlodipine [Norvasc] 10 MG tablet 10 mg PO QDAY Qty: 0 metoprolol tartrate 25 MG tablet 50 mg PO BID Qty: 0 glipizide 10 MG tablet 10 mg PO ACBR Qty: 0 valsartan [Diovan] 160 MG tablet 160 mg PO QDAY Qty: 0 Culturelle 1 CAP capsule 1 cap PO BID PRN (Reason: bid) Qty: 14 0RF atorvastatin 40 mg tablet Patient Comments: TAKE 1 TABLET BY MOUTH EVERY DAY FOR 90 DAYS Januvia 100 mg tablet Patient Comments: TAKE 1 TABLET BY MOUTH EVERY DAY FOR 90 DAYS insulin glargine [Basaglar KwikPen U-100 Insulin] 100 unit/mL (3 mL) insulin pen SUBCUT Patient Comments: INJECT 49 UNITS SUBCUTANEOUSLY EVERY DAY Discontinued Hydrocodone/Acetaminophen * (NORCO 5/325 *) 1 TAB tablet 1 tab PO Q6H PRN (Reason: pain) Qty: 20 0RF lisinopril-hydrochlorothiazide 20-25 mg tablet PO BID metoprolol tartrate 50 mg tablet Patient Comments: TAKE 1 TABLET BY MOUTH TWICE A DAY FOR 90 DAYS Referrals: Albert Gil MD [Primary Care Provider] - Patient/Caregiver Discharge Instructions Discharge Activity: resume usual activities Education Materials: Diabetes and Heart Disease, Diabetes and Kidney Disease, Diabetes Carbs Fats Protein, ED Diet for Vomiting or ..., ED Vomiting (Adult), Diabetes and High Blood Pressure Print Language: Macedonian Stand Alone Forms: Reina Award Info., Patient Portal Info Letter Discharge Order Discharge Orders: Discharge (Routine); Ordered 01/23/25 Ordered By: Ana Smith Quality Discharge Quality Measures VTE prophylaxis MD Attestestation MD Attestation I attest that I was physically present for the evaluation, physical examination, lab and imaging review of the patient with the residents. I discussed the case with the residents and agree with the findings and plans of care as documented above. Chon Sotelo MD
== END 2025-01-23 12:32 | disposition home or self-care (01) ==
LOC: SERX 11:40 → SERHOLD 14:37 → S2NX 01-22 07:54 → SERHOLD 01-22 11:16 → S2NX 01-22 11:17 → SERHOLD 01-22 11:17 → S2NX 01-22 13:04 → S3SX 01-23 04:43
PROVIDERS: Physician Assistant; Admitting Provider Student in an Organized Health Care Education/Training Program; Emergency Provider Emergency Medicine; PCP Family Medicine; Visit Provider Student in an Organized Health Care Education/Training Program
DX: N17.9 Acute kidney failure, unspecified (principal); I12.9 Hypertensive chronic kidney disease with stage 1 through stage 4 chronic kidney disease, or unspecified chronic kidney disease; I25.10 Atherosclerotic heart disease of native coronary artery without angina pectoris; N18.9 Chronic kidney disease, unspecified; T38.3X6A Underdosing of insulin and oral hypoglycemic [antidiabetic] drugs, initial encounter; Z79.4 Long term (current) use of insulin; Z79.899 Other long term (current) drug therapy; Z95.1 Presence of aortocoronary bypass graft; E11.22 Type 2 diabetes mellitus with diabetic chronic kidney disease; E11.65 Type 2 diabetes mellitus with hyperglycemia; E78.00 Pure hypercholesterolemia, unspecified; E86.0 Dehydration; F12.90 Cannabis use, unspecified, uncomplicated; E87.4 Mixed disorder of acid-base balance; J18.9 Pneumonia, unspecified organism
CPT/HCPCS: 36415; 74176; 80048; 80053; 80061; 80069; 80307; 81001; 82010; 82803; 83036; 83605; 83690; 83735; 84100; 84145; 84478; 85025; 93005; 96361; 96372; 96374; 96375; 99285; G0378; J1200; J1643; J1815; J2765; J3475; J7030; J7120; A9270

== ENCOUNTER 2025-10-19 12:10 | Inpatient (IN) | payer MEDICAID, SELFPAY ==
[2025-10-19] VITALS (7 sets, daily range): BP systolic 148–201; BP diastolic 85–119; PULSE 97–113; RESP 17–20; TEMP 36.8–37.1; O2SAT 95–100
--- NOTE | 2025-10-19 13:33 | XR_ITS ---
Examination: Abdomen sonogram, Limited Date and time of exam: 10/19/2025 at 2:00 p.m. Technique: Real-time chow scale transabdominal sonographic images of the upper abdomen obtained. Clinical indication: Vomiting for 2 days with right upper quadrant pain Findings: There is excellent visualization of the gallbladder. The gallbladder wall appears normal. No stones are identified the size and the directional color flow within the portal vein is normal. The head and body of the pancreas appear reasonably well visualized and no abnormalities can be identified the size and the direction of color flow in the hepatic veins is normal. The size and directional color flow the inferior vena cava appear normal. The common bile duct is seen and is normal, it measures 0.28 cm in diameter the liver is normal in size. It is my impression that the echogenicity throughout the liver is within normal limits. Partial visualization of the right kidney is noted and no abnormalities can be seen in the cortex or medulla. IMPRESSION: 1. Gallbladder is well seen and normal as of the common bile duct 2 it is my impression that the echogenicity throughout the liver is normal, the size of the liver is normal and I do not see any nodularity involving the contour of the liver. 3. See above regarding a few other finding
--- NOTE | 2025-10-19 13:35 | PD.EDRME ---
Rapid Medical Screening Exam RME Arrival date/time: 10/19/25 12:10 This is a case of 49-year-old male with history of diabetes hypertension GLORIA came in in the emergency room initially to recheck his kidney function but patient is currently complaining of upper abdominal pain nausea vomiting for 3 days worsening of the symptoms this patient decided to sought consult here in the emergency room Chief Complaint: General Adult/Misc Complain Time Seen by Provider: 10/19/25 12:34 Vital signs: Vital Signs Temperature 98.7 F 10/19/25 13:25 Pulse Rate 113 H 10/19/25 13:25 Respiratory Rate 20 10/19/25 13:25 Blood Pressure 148/92 H 10/19/25 13:25 Pulse Oximetry (%) 96 10/19/25 13:25 Oxygen Delivery Method Room Air 10/19/25 13:25 Exam: Moderate tenderness epigastric area no guarding no rebound no rigidity Clinical Impression: Abdominal pain vomiting
[2025-10-19 13:54] LABS: Basophils # (Auto) 0.1 Thou/mm3 (0.0-0.2); Basophils % (Auto) 0 % (0-2.5); Eosinophils # (Auto) 0.0 Thou/mm3 (0.0-0.5); Eosinophils % (Auto) 0 % (0-10); Hematocrit 43.9 % (41.0-53.0); Hemoglobin 15.5 g/dL (13.5-16.0); Immature Granulocytes Auto 0.06 Thou/mm3 (0.00-0.00); Lymphocytes # (Auto) 1.9 Thou/mm3 (1.0-4.8); Lymphocytes % (Auto) 12 % (10-50); Mean Corpuscular HGB Conc 35.3 g/dl (31.0-37.0); Mean Corpuscular Hemoglobin 30.9 pg (25.0-35.0); Mean Corpuscular Volume 88 fL (80-100); Monocytes # (Auto) 0.7 Thou/mm3 (0.0-0.8); Monocytes % (Auto) 4 % (0-12); Neutrophils # (Auto) 13.6 Thou/mm3 (1.8-7.7); Neutrophils % (Auto) 83 % (37-80); Nucleated Red Blood Cell # 0.00 Thou/mm3 (0.00-0.00); Nucleated Red Blood Cell % 0 /100 WBC (0); Platelet Count 334 Thou/mm3 (140-440); RDW Standard Deviation 41.5 fL (35.1-43.9); Red Blood Count 5.02 Miln/mm3 (4.50-5.90); White Blood Count 16.4 Thou/mm3 (3.8-10.6)
[2025-10-19 14:18] LABS: Alanine Aminotransferase 11 U/L (10-49); Albumin, Serum 4.1 gm/dL (3.5-5.0); Albumin/Globulin Ratio 1.1 (1.2-2.2); Alkaline Phosphatase 107 U/L (46-116); Anion Gap 14 (7-16); Aspartate Amino Transferase 19 U/L (0-34); BUN/Creatinine Ratio 7 Ratio (12-20); Bilirubin,Total 1.2 mg/dL (0.3-1.2); Blood Urea Nitrogen 34 mg/dL (9-23); Calcium 9.3 mg/dL (8.3-10.6); Calcium (Corrected) 9.3 mg/dL (8.5-10.1); Carbon Dioxide 23.7 mMol/L (20.0-31.0); Chloride 107 mMol/L (98-107); Creatinine (Component) 4.6 mg/dL (0.6-1.3); Globulin 3.6 gm/dL (2.3-3.5); Glucose 211 mg/dL (74-106); Lipase 124 U/L (12-53); Osmolality,Calculated 302 (275-295); Potassium 4.1 mMol/L (3.4-5.1); Sodium 145 mMol/L (136-145); Total Protein 7.7 gm/dL (5.7-8.2); eGFR 15 See Note
[2025-10-19 14:40] LABS: Collection Type, Urine Clean Catch
[2025-10-19 14:50] LABS: Bacteria,Urine Rare; Bilirubin,Urine Negative (Negative); Blood,Urine 1+ (Negative); Clarity,Urine Clear (Clear/Hazy); Color,Urine Lt-Yellow (Lt Yel-Yel); Glucose, Urine 2+ (Negative); Ketones,Urine Trace (Negative); Leukocyte Esterase,Urine Negative (Negative); Nitrite,Urine Negative (Negative); PH,Urine 6.5 (5.0-7.0); Protein,Urine 3+ (Neg - Trace); RBC,Urine 2 /hpf (0-3); Specific Gravity,Urine 1.016 (1.001-1.035); Squamous Epithelial Cell,Urine < 1 /hpf (0-5); Urobilinogen,Urine Negative mg/dL (0.0-1.0); WBC,Urine 3 /hpf (0-5)
[2025-10-19] MEDS: SODIUM CHLORIDE 0.9% 1000 ML 1,000 ML 999 ML IV ×2 (19:23→20:27)
[2025-10-19] MEDS: ONDANSETRON INJ 2 MG/ML INJ 2 ML 4 MG IVP (19:40)
--- NOTE | 2025-10-19 20:07 | PD.EDADULT ---
ED General RME/HPI General Chief complaint: General Adult/Misc Complain Stated complaint: LAB DRAW TO CHECK KIDNEYS Time Seen by Provider: 10/19/25 12:34 Arrival date/time: 10/19/25 12:10 49-year-old male with PMHx significant for acute kidney injury, insulin-dependent diabetes, hypertension, coronary disease s/p CABG and daily marijuana use. He reports for repeat creatinine levels and complains of daily vomiting for several years. He denies hematemesis fever chills shortness of breath chest pain or abdominal pain diarrhea constipation blood or mucus in stools dysuria urinary urgency frequency or hematuria. Patient states that he does not take any medications at home for the vomiting other than the marijuana Limitations: no limitations RME / HPI RME / HPI narrative: 10/19/25 12:10 This is a case of 49-year-old male with history of diabetes hypertension GLORIA came in in the emergency room initially to recheck his kidney function but patient is currently complaining of upper abdominal pain nausea vomiting for 3 days worsening of the symptoms this patient decided to sought consult here in the emergency room Exam: Moderate tenderness epigastric area no guarding no rebound no rigidity Impression: Abdominal pain vomiting Related Data Home Medications ?Medication ?Instructions ?Recorded ?Confirmed amlodipine 10 mg tablet (Norvasc) 10 mg PO QDAY #0 tabs 04/12/17 01/21/25 clopidogrel 75 mg tablet (Plavix) 75 mg PO QDAY #0 tabs 04/12/17 01/21/25 famotidine 20 mg tablet (Pepcid) 20 mg PO QDAY #0 tabs 04/12/17 01/21/25 metoprolol tartrate 25 mg tablet 50 mg PO BID #0 tabs 04/12/17 01/21/25 glipizide 10 mg tablet 10 mg PO ACBR #0 tabs 04/13/17 01/21/25 valsartan 160 mg tablet (Diovan) 160 mg PO QDAY #0 tabs 04/13/17 01/21/25 atorvastatin 40 mg tablet mg 01/21/25 insulin glargine 100 unit/mL (3 unit subcut 01/21/25 mL) subcutaneous pen (Basaglar KwikPen U-100 Insulin) sitagliptin phosphate 100 mg mg 01/21/25 tablet (Januvia) Previous Rx's ?Medication ?Instructions ?Recorded Lactobacillus rhamnosus GG 10 1 cap PO BID PRN bid #14 caps 04/14/17 billion cell capsule (Culturelle) Allergies Allergy/AdvReac Type Severity Reaction Status Date / Time No Known Allergies Allergy Verified 10/19/25 12:13 Review of Systems Constitutional Constitutional: Denies chills and Denies fever(s) Cardiovascular Cardiovascular: Denies chest pain, Denies dyspnea, Denies irregular heart rhythm and Denies syncope Respiratory Respiratory: Denies cough and Denies dyspnea Gastrointestinal Gastrointestinal: Denies abdominal pain, Denies loose stools, Denies melena, Reports nausea and Reports vomiting Genitourinary Genitourinary: Denies dysuria and Denies hematuria Musculoskeletal Musculoskeletal: Denies back pain and Denies myalgias Integumentary/Breasts Skin/Breast: Denies pruritus and Denies rash Neurologic Neurologic: Denies seizure-like activity and Denies syncope Past Medical History Past Medical History CARDIAC: Positive Cardiac Disorders, Myocardial Infarction, Coronary Artery Disease, Hypercholesterolemia, Congestive Heart Failure and Hypertension RESPIRATORY: Negative Chronic Obstructive Pulmonary Disease (COPD) GASTROINTESTINAL: Negative Gastrointestinal Disorders GENITOURINARY: Negative Genitourinary Disorders or Renal Disease MUSCULOSKELETAL: Negative Musculoskeletal Disorders ENDOCRINE: Positive Endocrine Disorders and Diabetes Mellitus Type 2; Negative Diabetes Mellitus Type 1 HEMATOLOGIC: Positive Blood Disorders OTHER HISTORY: Negative Autoimmune Disease, Organ Transplant, MRSA, Clostridium Difficile or Cancer Family History FAMILY HISTORY: Positive Family Cardiac Disorders Surgical History SURGICAL: Positive Cardiac Surgery (Triple bypass Sx); Negative Endocrine Surgery, Abdominal Surgery, Nephrectomy, Joint Replacement, Mastectomy, Vasectomy or Organ Transplant Social History SMOKING STATUS: Never smoker SUBSTANCE USE: does not use ED Exam General Limitations: Present no limitations General appearance: Present alert and in no apparent distress Chest Chest inspection: Present normal inspection and symmetric chest wall rise Respiratory Respiratory exam: Present normal lung sounds bilaterally Cardiovascular Cardiovascular exam: Present regular rate, normal rhythm and normal heart sounds Abdominal Exam Abdominal exam: Present soft and normal bowel sounds Extremities Exam Extremities exam: Present normal inspection and full ROM Back Exam Back exam: Present normal inspection and full ROM Neurological Exam Neurological exam: Present alert, oriented X3 and CN II-XII intact Psychiatric Psychiatric exam: Present normal affect and normal mood Skin Skin exam: Present warm, dry, intact and normal color Course Course Course Narrative: 49-year-old male with PMHx significant for acute kidney injury, insulin-dependent diabetes, hypertension, coronary disease s/p CABG and daily marijuana use. He reports for repeat creatinine levels and persistent vomiting. Patient's laboratory findings are significant for a white cell count of 16,000, creatinine of 4.6, proteinuria, glucosuria, trace blood and kentons in urine trace. An abdominal ultrasound unremarkable. Pt receive IVNS, pantoprazole and Zofran which patient reports helped resolve the nausea and vomiting. Consulted with Dr. Cabral who advised to admit patient under her services that she will evaluate the patient in the morning. Patient is currently stable nontoxic-appearing and resting comfortably Quality Measures none Orders Category Date Time Status COVID-19 Screening Questionnaire NOW Care 10/19/25 20:21 Active Decision to Admit X1 Care 10/19/25 20:20 Active Consult to Nephrology Stat Cons 10/19/25 20:21 Ordered US gall bladder Stat Exams 10/19/25 13:33 Completed CBC Stat Lab 10/19/25 13:44 Completed Comprehensive Metabolic Panel Stat Lab 10/19/25 13:44 Completed Lipase Stat Lab 10/19/25 13:44 Completed Urinalysis Stat Lab 10/19/25 14:20 Completed Ondansetron Inj [Zofran Inj] Med 10/19/25 13:33 Discontinued 4 mg IVP X1 ONE Ondansetron Inj [Zofran Inj] Med 10/19/25 19:15 Discontinued 4 mg IVP X1 ONE Pantoprazole Inj [Protonix Inj] Med 10/19/25 21:00 Active 40 mg IVP BID Pantoprazole Inj [Protonix Inj] Med 10/19/25 13:33 Discontinued 40 mg IVP X1 ONE Sodium Chloride 0.9% 1000 ml [Ns] 1,000 ml Med 10/19/25 13:33 Discontinued IV 999 mls/hr Sodium Chloride 0.9% 1000 ml [Ns] 1,000 ml Med 10/19/25 20:20 Active IV 999 mls/hr Vital Signs Vital signs: Vital Signs Temperature 98.7 F 10/19/25 13:25 Pulse Rate 113 H 10/19/25 13:25 Respiratory Rate 20 10/19/25 13:25 Blood Pressure 148/92 H 10/19/25 13:25 Pulse Oximetry (%) 96 10/19/25 13:25 Oxygen Delivery Method Room Air 10/19/25 13:25 Discharge Plan Plan Patient Disposition: Admit Acute Care w/in Hospital Prescriptions/Referrals Prescriptions/Med Rec: No Action clopidogrel [Plavix] 75 MG tablet 75 mg PO QDAY Qty: 0 famotidine [Pepcid] 20 MG tablet 20 mg PO QDAY Qty: 0 Patient Comments: TO SUPPRESS GASTRIC ACID SECRETION amlodipine [Norvasc] 10 MG tablet 10 mg PO QDAY Qty: 0 metoprolol tartrate 25 MG tablet 50 mg PO BID Qty: 0 glipizide 10 MG tablet 10 mg PO ACBR Qty: 0 valsartan [Diovan] 160 MG tablet 160 mg PO QDAY Qty: 0 Culturelle 1 CAP capsule 1 cap PO BID PRN (Reason: bid) Qty: 14 0RF atorvastatin 40 mg tablet Patient Comments: TAKE 1 TABLET BY MOUTH EVERY DAY FOR 90 DAYS Januvia 100 mg tablet Patient Comments: TAKE 1 TABLET BY MOUTH EVERY DAY FOR 90 DAYS insulin glargine [Basaglar KwikPen U-100 Insulin] 100 unit/mL (3 mL) insulin pen SUBCUT Patient Comments: INJECT 49 UNITS SUBCUTANEOUSLY EVERY DAY Referrals: No Primary/Family,Physician [Primary Care Provider] - In 1 week Problem List Clinical Impression: Acute renal failure Patient/Caregiver Discharge Instructions Print Language: Nigerian Stand Alone Forms: Re[facility] Award Info., Patient Portal Info Letter MDM Medication Administration(s) Medication Administration History Sodium Chloride (Ns) 1,000 mls @ 999 mls/hr IV .Q1H1M ONE Stop: 10/19/25 21:20 Last Admin: 10/19/25 20:27 Dose: 999 mls/hr Documented By: MIRIAM Pantoprazole Sodium (Pantoprazole Inj 40 Mg Vial) 40 mg IVP BID ALEXANDRA Stop: 11/18/25 20:59 Discontinued Medications Sodium Chloride (Ns) 1,000 mls @ 999 mls/hr IV .Q1H1M ONE Stop: 10/19/25 14:33 Last Admin: 10/19/25 19:23 Dose: 999 mls/hr Documented By: MIRIAM Ondansetron HCl (Ondansetron Inj 2 Mg/Ml Inj 2 Ml) 4 mg IVP X1 ONE; Protocol Stop: 10/19/25 13:34 Last Admin: 10/19/25 19:25 Dose: Not Given Documented By: MIRIAM Non-Admin Reason: missed by prior shift Ondansetron HCl (Ondansetron Inj 2 Mg/Ml Inj 2 Ml) 4 mg IVP X1 ONE; Protocol Stop: 10/19/25 19:16 Last Admin: 10/19/25 19:40 Dose: 4 mg Documented By: ELIZABETH Pantoprazole Sodium (Pantoprazole Inj 40 Mg Vial) 40 mg IVP X1 ONE Stop: 10/19/25 13:34 Last Admin: 10/19/25 19:25 Dose: Not Given Documented By: MIRIAM Non-Admin Reason: missed by prior shift
--- NOTE | 2025-10-19 21:12 | ESHP_ITS ---
<Statement entered by Alan Frazier MD - 10/23/25 19:57> A 49-year-old male with significant past medical history of type 2 diabetes mellitus, hypertension, CKD, insulin-dependent, CAD status post CABG [2015] presented to the hospital as he was reported by his PCP in view of abnormal labs on routine workup. Reported that he had intractable nausea and vomiting since couple of days before the day of admission. On chart review, noted to have similar episodes in January for which he was admitted and was treated for acute on chronic kidney disease. Reported that he is compliant with medications but does not see the doctors regularly. Denies any changes in urine output, shortness of breath. Vitals at the time of admission are significant for blood pressure 148/92 mmHg. Labs at the time of admission are significant for WBC 16.4, BUN 34, creatinine 4.6. Baseline creatinine in January 2024 is 1.9. Admitted for acute on chronic kidney disease secondary to suspected cyclical vomiting syndrome. Rapid response was called early in the morning on 10/20/2025 in view of chest discomfort, heartburn. Was given a dose of pantoprazole, metoclopramide. EKG and troponins were ordered. EKG did not show any significant ST and T wave changes. Noted to have elevated troponin of 0.516. Echocardiogram is ordered. Recommend to follow-up with the troponin. Started on IV fluids, strict I&O's, avoid nephrotoxic medications. I have personally seen and examined the patient, agree with residents assessment and plan Patient plan of care was discussed with the attending physician, Dr. Zackary Frazier, PGY2 Documentation for date of: 10/19/25 HPI History of Present Illness Chief complaint: Vomiting History of present illness: This patient is a 49-year-old male with a history of insulin-dependent type 2 days mellitus, CAD status post CABG (2016), CKD, and hypertension who presented to [facility] ED on 10/19 from his PCPs office after being told that his creatinine was very high. Patient is admitted for management of GLORIA on CKD and intractable vomiting. According to the patient, he has had issues with vomiting for at least a year, however he has had an acute worsening over the past month, however the patient is not exactly sure as he and his partner at bedside are not the best historians. The patient states that since about a month ago, he has been having increasing frequency of his vomiting and vomits may be 3 to 4 days out of the week on average, and when he does vomit, he will vomit may be up to 10 times a day. The patient states that nothing really seems to help it except for taking marijuana, for which he has been taking daily for over 10 years. Because of his excessive vomiting, the patient has been on unable to keep down most food and fluids, and additionally he has been unable to take some of his medications throughout the week as result of the vomiting. The patient's PCP has been following the patient's CKD and has been noticing that it has been going up. According to the patient, the patient's PCP was a bit concerned about the patient's Januvia as a cause of the patient's worsening renal function, however the patient has been taking Januvia since his CABG back in 2016. On the day of the admission, the patient's PCP noticed continued worsening of the patient's renal function labs, and told the patient to seek care at [facility] ED. The patient does not follow any inside sales recruiter and has not followed up with any manager telecom for his CAD status post CABG. Patient denies any fevers, chills, chest pain, shortness of breath, abdominal pain, dysuria, and headaches. ED course: Initial vitals significant for blood pressure of 148/92 and heart rate of 113. Initial labs significant for WBC 16.4, BUN 34, creatinine 4.6, lipase 124, and urinalysis positive for 3+ protein, 2+ glucose, and 1+ blood. Gallbladder ultrasound unremarkable. Patient was given 2 L of NS, Zofran, and Protonix in ED. Current Medication(s): Pending med rec Allergies (w/ Reactions): NKDA Family History: Noncontributory, mother has hypertension Occupation: Disabled Alcohol Intake: Patient denies Tobacco/Vape Use: Patient denies Other Drug Use: Daily THC use for over 10 years, denies other drug use Review of Systems Review of Systems Systems Reviewed: All systems reviewed, normal except as documented Exam Vital Signs Temp Pulse Resp BP Pulse Ox O2 Del Method 98.4 F 106 H 19 185/116 H 99 Room Air 10/19/25 19:27 10/19/25 19:27 10/19/25 19:27 10/19/25 19:27 10/19/25 19:27 10/19/25 19:27 Narrative Exam Physical Exam: General: Alert, no acute distress. Skin: Warm, dry, intact. Head: Normocephalic, atraumatic. Eye: Normal conjunctiva, PERRL. Throat: Oral mucosa dry, white spot noted in posterior tongue on the left. Cardiovascular: Regular rate and rhythm, no murmur, +S1/S2. Respiratory: Lungs are clear to auscultation, respirations unlabored, no crackles, no wheezing. Gastrointestinal: Soft, nontender, non-distended. No guarding or rebound tenderness. Extremities: Trace edema in BLE up to knees, no cyanosis, no clubbing. Multiple bruises in bilateral feet. 2+ radial pulse bilaterally, 2+ pedal pulse bilaterally. Neuro: No focal deficits observed. Conversant, moving all extremities. No overt cerebellar signs/incoordination. Psychiatric: Cooperative, appropriate affect. Results: Labs 10/23/25 05:24 10/23/25 05:24 Labs: Short CBC 10/19/25 Range/Units 13:44 WBC 16.4 H (3.8-10.6) Thou/mm3 Hgb 15.5 (13.5-16.0) g/dL Hct 43.9 (41.0-53.0) % Plt Count 334 (140-440) Thou/mm3 BMP 10/19/25 13:44 Sodium 145 Potassium 4.1 Chloride 107 Carbon Dioxide 23.7 BUN 34 H Creatinine 4.6 H* Glucose 211 H Calcium 9.3 Liver Function 10/19/25 Range/Units 13:44 Total Bilirubin 1.2 (0.3-1.2) mg/dL AST 19 (0-34) U/L ALT 11 (10-49) U/L Alkaline Phosphatase 107 (46-116) U/L Albumin 4.1 (3.5-5.0) gm/dL Urine 10/19/25 Range/Units 14:20 Urine Color Lt-Yellow (Lt Yel-Yel) Urine Clarity Clear (Clear/Hazy) Urine pH 6.5 (5.0-7.0) Ur Specific Imperial 1.016 (1.001-1.035) Urine Protein 3+ A (Neg - Trace) Urine Glucose (UA) 2+ A (Negative) Quality Measures Quality Measures VTE prophylaxis Medications Home Medications and Allergies Home Medications ?Medication ?Instructions ?Recorded ?Confirmed ?Type amlodipine 10 mg tablet (Norvasc) 10 mg PO QDAY #0 tab s 04/12/17 10/20/25 History clopidogrel 75 mg tablet (Plavix) 75 mg PO QDAY #0 tab s 04/12/17 10/20/25 History famotidine 20 mg tablet (Pepcid) 20 mg PO QDAY #0 tabs 04/12/17 10/20/25 History metoprolol tartrate 25 mg tablet 50 mg PO BID #0 tabs 04/12/17 10/20/25 History atorvastatin 40 mg tablet 40 mg PO QDAY 01/21/2510/20 History insulin glargine 100 unit/mL (3 49 unit subcut QDAY 10/20/25 History mL) subcutaneous pen (Basaglar KwikPen U-100 Insulin) aspirin 81 mg tablet 81 mg PO QDAY 10/20/2510/20 History sitagliptin phosphate 100 mg 100 mg PO QDAY 10/20/25 1 12/21/24 History tablet (Januvia) Allergies Allergy/AdvReac Type Severity Reaction Status Date / Time No Known Allergies Allergy Verified 10/19/25 12:13 Visit Medications Sodium Chloride (Ns) 1,000 mls @ 999 mls/hr IV .Q1H1M ONE Stop: 10/19/25 21:20 Last Admin: 10/19/25 20:27 Dose: 999 mls/hr Pantoprazole Sodium (Pantoprazole Inj 40 Mg Vial) 40 mg IVP BID ALEXANDRA Stop: 11/18/25 20:59 Last Admin: 10/19/25 20:56 Dose: 40 mg Discontinued Medications Sodium Chloride (Ns) 1,000 mls @ 999 mls/hr IV .Q1H1M ONE Stop: 10/19/25 14:33 Last Infusion: 10/19/25 20:24 Dose: Infused Ondansetron HCl (Ondansetron Inj 2 Mg/Ml Inj 2 Ml) 4 mg IVP X1 ONE; Protocol Stop: 10/19/25 13:34 Last Admin: 10/19/25 19:25 Dose: Not Given Ondansetron HCl (Ondansetron Inj 2 Mg/Ml Inj 2 Ml) 4 mg IVP X1 ONE; Protocol Stop: 10/19/25 19:16 Last Admin: 10/19/25 19:40 Dose: 4 mg Pantoprazole Sodium (Pantoprazole Inj 40 Mg Vial) 40 mg IVP X1 ONE Stop: 10/19/25 13:34 Last Admin: 10/19/25 19:25 Dose: Not Given Assessment & Plan Plan This patient is a 49-year-old male with a history of insulin-dependent type 2 days mellitus, CAD status post CABG (2015), CKD, and hypertension who presented to [facility] ED on 10/19 from his PCPs office after being told that his creatinine was very high. Patient is admitted for management of GLORIA on CKD and intractable vomiting. #GLORIA on CKD stage IIIb, likely prerenal #Intractable vomiting 12/13 #Cannabis hyperemesis syndrome Since patient has a history of CKD as identified from his previous labs, stage IIIb back in January 2025. The patient does not follow with a inside sales recruiter. The patient has been using marijuana daily for at least 10 years and has had episodes of vomiting for at least a year, with recent worsening over the past month. The patient's elevated creatinine is likely prerenal given the patient's poor oral consumption from his worsening vomiting, which is likely cannabis hyperemesis syndrome. Diagnostic: Creatinine on admission 1.6 eGFR on 01/23/2025 noted to be 43 Lipase on admission 124 Gallbladder ultrasound on 10/19 unremarkable Renal ultrasound ordered, pending CT abdomen/pelvis ordered to rule out any pancreatitis given elevated lipase and vomiting, pending Urine electrolytes, urine protein, and urine creatinine ordered, pending Treatment: Patient is status post 2 L of NS and 1 L of LR in the ED IV fluid resuscitation with LR running at 150 cc/h Nephrology consulted, appreciate recommendations Strict ins and outs Avoid nephrotoxic drugs, renally dose medications Renal diet modification Counseled patient on marijuana consumption decrease/cessation #NSTEMI likely type II #Hypertensive emergency The patient does have a history of hypertension and is not entirely sure what medications he takes other than amlodipine and metoprolol, but he does not remember the doses for these medications. The patient has had difficulty with compliance over the past month with this medication because of his increasing vomiting episodes. Given the patient's GLORIA on CKD, it is difficult to say whether this is hypertensive urgency with GLORIA on CKD or hypertensive emergency with renal endorgan damage. Diagnostic: Blood pressure max recorded on admission noted to be 201/103 Creatinine on admission 4.6 Treatment: Trend troponin No complaints of chest pain Will avoid decreasing blood pressure by more than 25% over 24 hours to avoid hypoperfusion (systolic goal above 150 until 10/20 at 2200) Resumed patient's home metoprolol to tartrate 50 mg twice daily, pending med rec Nifedipine 90 mg daily Hydralazine 10 mg IVP every 4 hours as needed if SBP >180 #Leukocytosis Patient noted to have WBC of 16.4 on admission. This is likely reactive as the patient does not have any fevers and has been vomiting throughout the entire day prior to admission. Treatment: Will continue to monitor Manage underlying vomiting with antiemetics #CAD status post CABG (2015) Patient has had a history of CAD and received a triple bypass surgery back in 2015. Patient had this procedure done in [place] and has not followed up with any manager telecom since. The patient has his dual antiplatelet therapy of aspirin and clopidogrel refilled by his PCP. Diagnostic: Echocardiogram ordered, pending Lipid panel ordered, pending Treatment: Resume patient's home clopidogrel, we will hold off on resuming the patient's home aspirin as it is several years out of his procedure and the patient has multiple bruises in his bilateral lower extremities Patient to follow-up outpatient Cardiac diet modification Started the patient on atorvastatin 40 mg nightly #Insulin-dependent type 2 diabetes mellitus #Diabetic nephropathy Patient does endorse a history of insulin-dependent type 2 diabetes mellitus. Patient takes insulin glargine at home for this, but is not sure what the units are. Per the patient's , the patient often stumbles and has multiple sores on his feet. The patient has not yet been referred to any ice cream vendor and has not had any follow-up regarding his feet in an outpatient basis by his PCP. Diagnostic: Hemoglobin A1c back in 01/22/2025 noted to be 13.4% Hemoglobin A1c ordered, pending Treatment: Pending med rec Sliding scale insulin step I Bedside glucose checks ACHS Carbohydrate consistent diet modification Wound care referral #GERD Patient endorses history of acid reflux and takes famotidine at home for management of this condition Treatment: Protonix 40 mg daily DVT Prophylaxis: Heparin GI Prophylaxis: Protonix Bowel: Senokot PRN Diet: Renal, cardiac, carbohydrate consistent Mahoney: N/A Lines: PIV Antibiotics: N/A Code Status: FULL Reason for Hospitalization: GLORIA, intractable vomiting Other Barriers to Discharge: Echocardiogram Patient plan of care was discussed with the senior resident Dr. Frazier (PGY-2) and attending physician Dr. Zackary Jarquin, PGY1 Attending Provider Attestation/Addendum After examination of the patient and review of the clinical data I feel that this patient needs admission to the hospital for further treatment/evaluation. Plan of care discussed with patient and is in agreement. I Horacio Raymundo MD, attest that I was physically present for young portions of evaluation, and examined patient, labs and imagings and plan of care were discussed with IM residents team, and I agree with the findings and plans documented above.
--- NOTE | 2025-10-19 21:37 | XR_ITS ---
Examination: CT abdomen and pelvis without contrast. Coronal 3-D reconstructions. Sagittal 2-D reconstructions. Date and time of exam: October 20, 2025, 0006 hours, comparison January 21, 2025 INDICATIONS: Epigastric pain abdominal pain beginning 3 days ago, clinical diagnosis pancreatitis CTDI: vol (mGy): 11.2 DLP: (mGycm): 685 Technique: Axial images of the abdomen have been obtained, 3 mm slice thickness Intravenous contrast material has not been administered. Low dose protocols were performed. One or more of the following dose reduction techniques were used; automated exposure control, adjustment of the mA and/or KV according to patient size, use of iterative reconstruction technique. Findings: No visualized liver or splenic lesion on this noncontrast study No gallstones No pancreatic edema or dilated pancreatic duct Normal adrenal glands Minimal perinephric stranding Abdominal aortic calcification no aneurysmal dilatation No bowel obstruction Normal appendix Colonic diverticulosis, scattered no diverticulitis No prostatomegaly Minimal thickening of the urinary bladder wall Diffuse mild to moderate lumbar disc narrowing IMPRESSION: Negative for pancreatitis Minimal perinephric stranding, differential would include urinary tract infection Normal appendix Minimal urinary bladder wall thickening, consider cystitis
--- NOTE | 2025-10-19 21:39 | ECHO_ITS ---
Patient Info Name: Liam Quintero Age: 49 years : 1975 Gender: Male Ht: 163 cm Wt: 100 kg BSA: 2.17 m2 BP: 171 / 103 mmHg HR: 87 bpm Exam Date: 10/20/2025 3:20 PM Admit Date: 10/19/2025 Site: [facility] Patient Status: I Exam Type: CA echo doppler complete [employer] Forest[employer] Supervisor: Carmel Dorman Ordering Physician: Alex Jarquin Study Info Indications Ischemic heart disease hx - Primary Location: S3SX Left Ventricular Outflow Tract Name Value Normal LVOT 2D LVOT Diameter 1.9 cm LVOT Doppler LVOT Peak Velocity 100 cm/s LVOT Mean Gradient 2 mmHg LVOT VTI 22 cm LVOT VTI/AV VTI Ratio 0.9 LVOT Stroke Volume 61 ml Pulmonic Valve Name Value Normal PV Doppler PV Peak Velocity 98 cm/s PV Regurgitation Doppler WV Peak End Diastolic Velocity 136 cm/s Mitral Valve Name Value Normal MV Doppler MV Decel Kay 782 cm/s2 MV PHT 41 ms MV Area (PHT) 5.4 cm2 4.0-5.0 MV Diastolic Function MV E Peak Velocity 110 cm/s MV A Peak Velocity 87 cm/s MV E/A 1.3 MV Annular TDI MV Septal e' Velocity 6.4 cm/s MV E/e' (Septal) 17.1 MV Lateral e' Velocity 8.3 cm/s MV E/e' (Lateral) 13.3 MV e' Average 7.35 cm/s MV E/e' (Average) 15.2 Tricuspid Valve Name Value Normal TV Regurgitation Doppler TR Peak Velocity 320 cm/s Estimated PAP/RSVP RA Pressure 3 mmHg <=5 PA Systolic Pressure 44 mmHg <36 RV Systolic Pressure 44 mmHg <36 Aortic Valve Name Value Normal AV 2D/MM AV Cusp Sep (MM) 1.3 cm AV Doppler AV Peak Velocity 124 cm/s AV Mean Gradient 3 mmHg AV VTI 25 cm AV Area (Cont Eq VTI) 2.4 cm2 >=3.0 AV Area (Cont Eq Atif) 2.3 cm2 AV DI (Atif) 0.81 AV Regurgitation 2D LVOT Area 2.8 cm2 Ventricles Name Value Normal LV Dimensions 2D/MM IVS Diastolic Thickness (2D) 1.0 cm 0.6-1.0 LVID Diastole (2D) 5.0 cm 4.2-5.8 LVIW Diastolic Thickness (2D) 0.9 cm 0.6-1.0 LVID Systole (2D) 3.4 cm 2.5-4.0 LVOT Diameter 1.9 cm LV Mass (2D Cubed) 169.92 g 88.00-224.00 LV Mass Index (2D Cubed) 78 g/m2 49-115 Relative Wall Thickness (2D) 0.36 <=0.42 IVS/LVIW Diastolic Thickness (2D) 1.11 0.00-1.50 LV Fractional Shortening/Ejection Fraction 2D/MM LV Fractional Shortening (2D) 32 % 25-43 LV EF (2D Teichholz) 60 % Atria Name Value Normal LA Dimensions LA Volume (4C A-L) 57 ml LA Volume (BP A-L) 67 ml Left Ventricle Left ventricular chamber dimension is normal. Left ventricular systolic function is normal with visually estimated ejection fraction of 60-65%. There is normal geometry noted in the left ventricle. Left ventricular segmental wall motion is normal. There is normal diastolic function in the left ventricle. Right Ventricle Right ventricular chamber dimension is normal. Right ventricular systolic function is normal. Left Atrium Left atrial chamber dimension is normal. Right Atrium Right atrial chamber dimension is normal. Aortic Valve The aortic valve is trileaflet. There is no aortic valve sclerosis. There is no aortic valve stenosis with a peak velocity of 124 cm/s, mean gradient of 3 mmHg, and aortic valve area of 2.4 cm2. There is no aortic valve regurgitation. Pulmonic Valve The pulmonic valve is normal. There is no pulmonic valve stenosis. There is no pulmonic regurgitation. Mitral Valve The mitral valve has normal leaflets. There is no mitral valve stenosis. There is mild mitral valve regurgitation. Tricuspid Valve The tricuspid valve leaflets are normal. There is no tricuspid valve stenosis. There is mild tricuspid valve regurgitation. Pulmonary hypertension, estimated pulmonary arterial systolic pressure is 44 mmHg and systemic blood pressure of 171 mmHg in systole. Pericardium/Pleural The pericardium appears normal. There is no pericardial effusion. No pleural effusion visualized. Inferior Vena Cava Normal inferior vena cava with >50% collapse upon inspiration consistent with normal right atrial pressure, 3 mmHg. Aorta The aortic measurements are indexed to age and body surface area. The aortic root at the sinus of Valsalva is not well visualized. The prox ascending aorta is not well visualized. Summary 1. Left ventricle size is normal and systolic function is normal. Estimated ejection fraction is 60-65%. There is stage 1 diastolic dysfunction. 2. Right ventricle chamber size is normal and systolic function is normal. Estimated RVSP is 44 mmHg with RAP 3. Mild pulmonary hypertension. 3. There is mild mitral and tricuspid valve regurgitation. Mildly dilated LA. 4. Normal IVC with estimated RA pressure 3 mmHg. Report Signatures Finalized by Dell Mahajan on 10/20/2025 06:57 PM
[2025-10-19] MEDS: RINGERS LACTATED 1000 ML 1,000 ML 999 ML IV (22:08)
[2025-10-19] MEDS: RINGERS LACTATED 1000 ML 1,000 ML 150 ML IV (22:08)
[2025-10-19] MEDS: HEPARIN SOD INJ 5000 UNIT/ML VIAL SC (22:13)
[2025-10-19] MEDS: NIFEdipine XL 30 MG TABCR 60 MG PO (22:32)
[2025-10-19 23:35] LABS: Chloride,Urine Random 57.1 mMol/L (55.0-125.0); Creatinine,Random Urine 84 mg/dL (30-125); Potassium,Urine Random 25 mMol/L (12-62); Protein Total, Random Urine > 250 mg/dL (1-14); Sodium,Urine Random 61.7 mMol/L (20.0-110.0)
[2025-10-20] VITALS (19 sets, daily range): BP systolic 118–188; BP diastolic 56–113; PULSE 78–122; RESP 17–20; TEMP 36.4–36.8; O2SAT 95–98
--- NOTE | 2025-10-20 00:59 | PC.NURSE ---
MD Scruggs made aware of BP 188/106, per MD will check on pt chart.
--- NOTE | 2025-10-20 01:32 | PRELIM_ITS ---
CT scan of the abdomen and pelvis without intravenous contrast (axial sections with sagittal and coronal reformats) October 20, 2025 0005 hours Clinical History: Rule out pancreatitis Comparison: January 21, 2025 Findings: The liver, gallbladder, pancreas, spleen and adrenals are unremarkable on this noncontrast study. Nonspecific perinephric fat stranding is noted bilaterally. No evidence of renal/ureteric calculus or hydroureteronephrosis. No evidence of bowel obstruction. The appendix is within normal limits (images [id number]). There is no mesenteric or retroperitoneal adenopathy. The urinary bladder is partially distended and shows mild wall thickening; possibility of cystitis cannot be excluded. There is no free fluid or free air. The abdominal aorta demonstrates atheromatous calcification without evidence of aneurysm. Degenerative changes are identified in the spine. The lung bases are clear. Please note that evaluation of soft tissue/vascular structures and bowel loops is limited due to absence of IV and oral contrast. Impression: 1. No evidence of acute pancreatitis. 2. Subtle nonspecific bilateral perinephric fat stranding, which may be due to intravenous infusion versus pyelonephritis. 3. Partially distended urinary bladder with mild wall thickening; possibility of cystitis cannot be excluded. 4. Other findings as described above. Suggest clinical correlation and follow up accordingly. Report Electronically Signed By: Robbie Bowden 10/20/2025 1:32:01 AM [EST]
[2025-10-20] MEDS: LABETALOL 100 MG TABLET PO (01:43)
[2025-10-20] MEDS: hydrALAZINE INJ 20 MG/ML VIAL 10 MG IVP (04:42)
--- NOTE | 2025-10-20 05:50 | EKG_ITS ---
[facility] Test Date: 2025-10-20 Pat Name: CHEIKH KENDALL [facility] Gender: Male [employer]: LORNA : 1975 Requested By: Elmer Scruggs Order Number: [id number] Reading MD: Elmer Scruggs Measurements Intervals [place] Rate: 114 P: IA: QRS: 39 QRSD: 97 T: 75 QT: 330 QTc: 455 Interpretive Statements ATRIAL FLUTTER/TACHYCARDIA WITH RAPID VENTRICULAR RESPONSE PROBABLE INFERIOR MYOCARDIAL INFARCTION , PROBABLY OLD No previous ECG available for comparison /store/S0/[id number].pdf
[2025-10-20 06:00] LABS: Basophils # (Auto) 0.0 Thou/mm3 (0.0-0.2); Basophils % (Auto) 0 % (0-2.5); Eosinophils # (Auto) 0.1 Thou/mm3 (0.0-0.5); Eosinophils % (Auto) 1 % (0-10); Hematocrit 38.8 % (41.0-53.0); Hemoglobin 13.7 g/dL (13.5-16.0); Immature Granulocytes Auto 0.03 Thou/mm3 (0.00-0.00); Lymphocytes # (Auto) 2.3 Thou/mm3 (1.0-4.8); Lymphocytes % (Auto) 19 % (10-50); Mean Corpuscular HGB Conc 35.3 g/dl (31.0-37.0); Mean Corpuscular Hemoglobin 30.8 pg (25.0-35.0); Mean Corpuscular Volume 87 fL (80-100); Monocytes # (Auto) 0.5 Thou/mm3 (0.0-0.8); Monocytes % (Auto) 4 % (0-12); Neutrophils # (Auto) 8.8 Thou/mm3 (1.8-7.7); Neutrophils % (Auto) 75 % (37-80); Nucleated Red Blood Cell # 0.00 Thou/mm3 (0.00-0.00); Nucleated Red Blood Cell % 0 /100 WBC (0); Platelet Count 295 Thou/mm3 (140-440); RDW Standard Deviation 41.0 fL (35.1-43.9); Red Blood Count 4.45 Miln/mm3 (4.50-5.90); White Blood Count 11.7 Thou/mm3 (3.8-10.6)
[2025-10-20] MEDS: METOCLOPRAMIDE INJ 5 MG/ML VIAL 2 ML 10 MG IVP (06:03)
[2025-10-20 06:22] LABS: INR 1.0 (0.9-1.3); Partial Thromboplastin Time 25.1 Seconds (22.0-36.0); Prothrombin Time 10.7 Seconds (9.0-12.2)
[2025-10-20 06:24] LABS: Glucose Estimated Average 177 mg/dL (80-131); Hemoglobin A1C 7.8 % Hgb (4.8-6.0)
--- NOTE | 2025-10-20 06:32 | PD.RESEVENT ---
Documentation for date of: 10/20/25 Event Note Event Note: Rapid Response Room:?350 Time:?05:48 Reason for Call:?Chest pain Patient was sitting up to side of the bed holding his chest in pain. Vitals during rapid response noted to be temperature of 97.8 ?F, blood pressure 171/103, heart rate 122, respiratory 20, and O2 saturation 98% on room air. Patient did report chest pain of 8 out of 10. Just prior to this, the patient was feeling like he was going to throw up again, and continued to feel this sensation throughout the chest pain duration. There is the end of the rapid, prior to the patient receiving any medications, his chest pain was subsiding. This is likely secondary to reflux and/or the patient's nausea/vomiting as the pain was noted to be transient and the EKG taken at bedside did not show any acute abnormalities. Additionally, the last time the patient had received an antiemetic was ondansetron on 10/19 at 1940 PST. New orders: EKG, troponin, Protonix, metoclopramide, and changed to GERD diet. Patient upgraded to med/tele. Received call from patient's nurse that troponin was elevated at .5, likely in setting of hypertensive emergency, patient upgraded to Telemetry, will trend troponin, Mg and K were repleted, defer cardio consult to dayteam if Troponin trends up, patient's chest pain recurs, or if deemed necessary for another reason. Patient was discussed with the attending, Dr. Raymundo. Alex Jarquin, PGY-1
[2025-10-20 06:43] LABS: Alanine Aminotransferase 8 U/L (10-49); Albumin, Serum 3.8 gm/dL (3.5-5.0); Albumin/Globulin Ratio 1.2 (1.2-2.2); Alkaline Phosphatase 92 U/L (46-116); Anion Gap 14 (7-16); Aspartate Amino Transferase 17 U/L (0-34); BUN/Creatinine Ratio 8 Ratio (12-20); Bilirubin,Total 1.3 mg/dL (0.3-1.2); Blood Urea Nitrogen 31 mg/dL (9-23); Calcium 8.6 mg/dL (8.3-10.6); Calcium (Corrected) 8.8 mg/dL (8.5-10.1); Carbon Dioxide 20.9 mMol/L (20.0-31.0); Cardiac Risk Estimate 5.0 RATIO (4.0-6.7); Chloride 109 mMol/L (98-107); Cholesterol 196 mg/dL (132-200); Creatinine (Component) 4.0 mg/dL (0.6-1.3); Globulin 3.1 gm/dL (2.3-3.5); Glucose 174 mg/dL (74-106); HDL Cholesterol 39 mg/dL (40-60); LDL Cholesterol,Calculated 118 mg/dL (0-130); Magnesium 1.5 mg/dL (1.6-2.6); Osmolality,Calculated 297 (275-295); Phosphorous 4.2 mg/dL (2.4-5.1); Potassium 3.6 mMol/L (3.4-5.1); Sodium 144 mMol/L (136-145); Total Protein 6.9 gm/dL (5.7-8.2); Triglycerides 197 mg/dL (30-150); eGFR 17 See Note
[2025-10-20 06:48] LABS: Troponin I 0.516 ng/mL (0.0-0.045)
--- NOTE | 2025-10-20 07:32 | ESPR_ITS ---
<Statement entered by Damien Maldonado MD - 10/20/25 18:30> I saw and examined patient personally and supervised PGY 1 resident, Dr. Carver with formulating a management plan. I agree with the documentation with the exceptions as listed below. Patient is a 49-year-old male with a PMH of insulin-dependent type 2 diabetes mellitus, CAD status post CABG (2016), CKD, and hypertension who presented to [facility] ED on 10/19 from PCP for high creatinine. Patient is admitted for management of GLORIA on CKD and intractable vomiting. Problem list: 1. ACS 2. NSTEMI type I versus type II 3. History of CAD s/p CABG [2016] 4. GLORIA on CKD stage IIIb 4. Intractable nausea and vomiting likely secondary to cannabis hyperemesis syndrome 5. Primary hypertension 6. Hypertensive urgency 7. Insulin-dependent diabetes mellitus type 2 8. Diabetic nephropathy Patient initially presented with intractable nausea and vomiting which responded to metoclopramide and Zofran. However patient's had persistent sharp central chest pain radiating to his left arm and had mild relief from sublingual nitroglycerin. EKG showed no acute ST changes. Troponin was initially elevated at 0.5 and up trended to 1.01. Patient was started on heparin infusion, aspirin and loading dose and plavix. Echo was ordered. Repeat troponin at 1930. Cardiology, Dr. Roland was consulted. Appreciate recommendations. Plan of care discussed with Attending Dr. Rissa Maldonado MD PGY 2 Disclaimer: This note was dictated by speech recognition. Minor errors in notary public may be present due to voice recognition software. Documentation for date of: 10/20/25 Subjective Subjective Interval history: Patient seen and examined overnight; had 2 rapids called this AM secondary to chest pain, see event notes. Pain this AM has been somewhat positional, but radiating down L arm. Cardiology consulted, they stated to start aspirin but not heparin, and would not do cath due to GLORIA on CKD 3b on admission, and potential for acute renal failure. Troponin rising to 2.2 on latest blood draw. Exam Vital Signs Temp Pulse Resp BP Pulse Ox O2 Del Method 97.8 F 117 H 20 171/103 H 98 Room Air 10/20/25 05:48 10/20/25 06:20 10/20/25 05:48 10/20/25 05:48 10/20/25 05:48 10/20/25 04:00 Narrative Exam General: A/O x3, no acute distress, well-nourished, well-developed Eyes: PERRL, EOMI. Anicteric, vision grossly intact. Ears: No ear pain, no ear discharge, Hearing grossly intact. Nose: No nasal discharge. Mouth/Throat: Moist mucous membranes, no redness, no lesions. Neck: Neck supple, non-tender, no cervical lymphadenopathy. Lungs: Clear MURALI to auscultation and percussion, No accessory muscle use. Cardio: Normal S1/S2, regular rhythm, no murmurs, no JVD or carotid bruits. Abdomen: Soft, non-tender, no palpable masses, peristalsis present, no guarding or rebound. Extremities: Symmetrical, no significant deformities, no peripheral edema , non-tender, peripheral pulses present. Skin: No rashes, no lesions, warm to touch. Neuro: No focal neurological deficits. Psych: Cooperative, appropriate mood and effect. Objective Labs 10/21/25 03:34 10/21/25 03:34 Labs: Laboratory Results - last 24 hr 10/19/25 10/19/25 10/19/25 13:44 14:20 23:18 WBC 16.4 H RBC 5.02 Hgb 15.5 Hct 43.9 MCV 88 MCH 30.9 MCHC 35.3 RDW Std Deviation 41.5 Plt Count 334 Neut % (Auto) 83 H Lymph % (Auto) 12 [place] % (Auto) 4 Eos % (Auto) 0 Baso % (Auto) 0 Neut # (Auto) 13.6 H Lymph # (Auto) 1.9 [place] # (Auto) 0.7 Eos # (Auto) 0.0 Baso # (Auto) 0.1 Immature Gran # (Auto) 0.06 H Absolute Nucleated RBC 0.00 Immature Gran % 0 Nucleated RBC % 0 PT INR APTT Sodium 145 Potassium 4.1 Chloride 107 Carbon Dioxide 23.7 Anion Gap 14 BUN 34 H Creatinine 4.6 H* Estim Creat Clear Calc Not Performed. eGFR 15 L BUN/Creatinine Ratio 7 L Glucose [address] Glu mg/dL Hemoglobin A1c Calculated Osmolality 302 H Calcium 9.3 Corrected Calcium 9.3 Phosphorus Magnesium Total Bilirubin 1.2 AST 19 ALT 11 Alkaline Phosphatase 107 Troponin I Total Protein 7.7 Albumin 4.1 Globulin 3.6 H Albumin/Globulin Ratio 1.1 L Triglycerides Cholesterol LDL Cholesterol, Calc HDL Cholesterol Cholesterol/HDL Ratio Lipase 124 H Ur Collection Type Clean Catch Urine Color Lt-Yellow Urine Clarity Clear Urine pH 6.5 Ur Specific [place] 1.016 Urine Protein 3+ A Urine Glucose (UA) 2+ A Urine Ketones Trace Urine Blood 1+ A Urine Nitrite Negative Urine Bilirubin Negative Urine Urobilinogen (Auto) Negative Ur Leukocyte Esterase Negative Urine RBC 2 Urine WBC 3 Ur Squamous Epith Cells < 1 Urine Bacteria Rare Ur Random Creatinine 84 U Random Total Protein > 250 H Ur Random Sodium 61.7 Ur Random Potassium 25 Ur Random Chloride 57.1 10/20/25 05:40 WBC 11.7 H RBC 4.45 L Hgb 13.7 Hct 38.8 L MCV 87 MCH 30.8 MCHC 35.3 RDW Std Deviation 41.0 Plt Count 295 D Neut % (Auto) 75 Lymph % (Auto) 19 [place] % (Auto) 4 Eos % (Auto) 1 Baso % (Auto) 0 Neut # (Auto) 8.8 H Lymph # (Auto) 2.3 [place] # (Auto) 0.5 Eos # (Auto) 0.1 Baso # (Auto) 0.0 Immature Gran # (Auto) 0.03 H Absolute Nucleated RBC 0.00 Immature Gran % 0 Nucleated RBC % 0 PT 10.7 INR 1.0 APTT 25.1 Sodium 144 Potassium 3.6 D Chloride 109 H Carbon Dioxide 20.9 Anion Gap 14 BUN 31 H Creatinine 4.0 H D Estim Creat Clear Calc Not Performed. eGFR 17 L BUN/Creatinine Ratio 8 L Glucose [address] Glu mg/dL 177 H Hemoglobin A1c 7.8 H Calculated Osmolality 297 H Calcium 8.6 Corrected Calcium 8.8 Phosphorus 4.2 Magnesium 1.5 L Total Bilirubin 1.3 H AST 17 ALT 8 L Alkaline Phosphatase 92 Troponin I 0.516 H* Total Protein 6.9 Albumin 3.8 Globulin 3.1 Albumin/Globulin Ratio 1.2 Triglycerides 197 H Cholesterol 196 LDL Cholesterol, Calc 118 HDL Cholesterol 39 L Cholesterol/HDL Ratio 5.0 Lipase Ur Collection Type Urine Color Urine Clarity Urine pH Ur Specific [place] Urine Protein Urine Glucose (UA) Urine Ketones Urine Blood Urine Nitrite Urine Bilirubin Urine Urobilinogen (Auto) Ur Leukocyte Esterase Urine RBC Urine WBC Ur Squamous Epith Cells Urine Bacteria Ur Random Creatinine U Random Total Protein Ur Random Sodium Ur Random Potassium Ur Random Chloride Quality Measures Quality Measures none Assessment & Plan Assessment Current Active Medications: Generic Name Dose Route Start Last Admin Trade Name Freq PRN Reason Stop Dose Admin Acetaminophen 650 mg 10/19/25 21:12 Acetaminophen 325 Mg Tablet PO 11/18/25 21:11 Q6H PRN Fever >101.5 or pain 1-3 Atorvastatin Calcium 40 mg 10/20/25 21:00 Atorvastatin Calcium 20 Mg Tablet PO 11/19/25 20:59 HS ALEXANDRA Clopidogrel Bisulfate 75 mg 10/20/25 09:00 Clopidogrel Bisulfate 75 Mg Tablet PO 11/19/25 08:59 QDAY ALEXANDRA Dextrose 25 ml 10/19/25 21:19 Dextrose 50%-Water Inj 50 Ml Syringe IV 11/18/25 21:18 Q15MIN PRN BG 50-70 responsive npo pt Dextrose 50 ml 10/19/25 21:19 Dextrose 50%-Water Inj 50 Ml Syringe IV 11/18/25 21:18 Q15MIN PRN BG <50 OR BG <70 & pt unresponsive Glucagon 1 mg 10/19/25 21:19 Glucagon Inj 1 Mg Vial IM Q15MIN PRN BG <70, and no IV access Heparin Sodium (Porcine) 5,000 unit 10/19/25 21:30 10/19/25 22:13 Heparin Sod Inj 5000 Unit/Ml Vial SC 11/02/25 21:29 5,000 unit Q12H ALEXANDRA Administration Hydralazine HCl 10 mg 10/20/25 04:08 Hydralazine Inj 20 Mg/Ml Vial IVP 11/19/25 04:07 Q4H PRN Give if SBP >180 Magnesium Sulfate 4 gm in 50 mls @ 12.5 mls/hr 10/20/25 06:58 Magnesium Sulfate Ivpb IV 10/20/25 10:57 X1 ONE Influenza Virus Vaccine Quadrival 0.5 ml 10/21/25 08:00 Influenza Virus 0.5 Ml Syringe IMi 10/21/25 08:01 .ONCE ONE Insulin Human Lispro 0 unit 10/20/25 07:30 Insulin Lispro (Admelog) 1 Unit/0.01 Ml Unit SC 11/19/25 07:29 AC [facility] Protocol Metoprolol Tartrate 50 mg 10/20/25 09:00 Metoprolol Tartrate 25 Mg Tablet PO 11/19/25 08:59 BID ALEXANDRA Nifedipine 90 mg 10/20/25 09:00 Nifedipine Xl 30 Mg Tabcr PO 11/19/25 08:59 QDAY [facility] Ondansetron HCl 4 mg 10/19/25 21:12 Ondansetron Inj 2 Mg/Ml Inj 2 Ml IVP 11/18/25 21:11 Q6H PRN NAUSEA OR VOMITING Protocol Pantoprazole Sodium 40 mg 10/20/25 09:00 Pantoprazole Inj 40 Mg Vial IVP 11/19/25 08:59 QDAY [facility] Sennosides 1 tab 10/19/25 22:11 Senna/Docusate Sod 1 Tab Tablet PO 11/18/25 22:10 QDAY PRN CONSTIPATION Protocol Plan Patient is a 49-year-old male with a PMH of insulin-dependent type 2 diabetes mellitus, CAD status post CABG (2015), CKD, and hypertension who presented to [facility] ED on 10/19 from PCP for high creatinine. Patient is admitted for management of GLORIA on CKD and intractable vomiting. #ACS vs stable angina vs unstable angina vs pericarditis #History of CAD status post CABG (2015) Patient has history of CAD with triple bypass surgery 2016 in [place]; has not followed up with cardiology. Aspirin and clopidogrel refilled by PCP. On 10-20-25, had 2 episodes of chest pain (see rapid notes for more details); EKG x2 showed no ST segment changes. Troponin was initially 0.516; last one was 2.238 at 13:30. Lipid panel showes TG 197, HDL 39. Plan: Cardiology consulted, thank you for recommendations- start ASA, no cath due to GLORIA on CKD, hold off on heparin Heparin drip started as benefits outweigh risks Resume patient's home clopidogrel and aspirin Cardiac diet modification Atorvastatin 40, metoprolol 50 BID, capsaicin cream (for chest pain) Echo ordered and pending Continue to trend troponin #GLORIA on CKD stage IIIb, likely prerenal #Intractable vomiting 2/2 #Cannabis hyperemesis syndrome History of CKD as identified from his previous labs, stage IIIb back in January 2025. The patient does not follow with a die technician. The patient has been using marijuana daily for at least 10 years and has had episodes of vomiting for at least a year, with recent worsening over the past month. eGFR on 01/23/2025- 43 On admission, Creatinine 1.6, Lipase 124 Gallbladder ultrasound on 10/19 unremarkable Renal ultrasound ordered, pending CT abdomen/pelvis ordered to rule out any pancreatitis given elevated lipase and vomiting, pending Urine electrolytes, urine protein, and urine creatinine ordered, pending Plan: Received 2 L NS and 1 L LR in the ED Received 1L NS today Nephrology consulted, thank you for recommendations Strict ins and outs Avoid nephrotoxic drugs, renally dose medications Renal diet modification Counseled patient on marijuana consumption decrease/cessation #History of hypertension #Hypertensive urgency? versus #Hypertensive emergency? Blood pressure max recorded on admission noted to be 201/103; BP today is 120/64. Creatinine on admission 4.6; today is 4.0 Plan: Systolic goal above 150 until 10/20 at 2200 Metoprolol tartrate 50 BID Nifedipine 90 mg daily Hydralazine 10 mg IVP every 4 hours as needed if SBP >180 #Leukocytosis Patient noted to have WBC of 16.4 on admission. WBC 10/20/25 were 11.7. Plan: Continue to monitor Manage underlying vomiting with antiemetics #History of Insulin-dependent T2DM #Diabetic nephropathy History of insulin-dependent type 2 diabetes mellitus. Per , patient stumbles and has multiple foot sores. Has not yet been referred to any fisher and has not had any follow-up regarding his feet in an outpatient basis by his PCP. A1c 01/22/2025 13.4; A1c today 7.8 Plan: Sliding scale insulin step I Bedside glucose checks ACHS Carbohydrate consistent diet modification Wound care referral #History of acid reflux Patient takes famotidine at home Plan: Protonix 40 mg daily DVT Prophylaxis: Heparin GI Prophylaxis: Protonix Bowel: Senokot PRN Diet: Renal, cardiac, carbohydrate consistent [place]: N/A Lines: PIV Antibiotics: N/A This case was discussed with my attending physician, Dr. Kwok, and senior resident, Dr. Maldonado. Asaf Carver, PGY1 Attending Provider Attestation/Addendum I reviewed labs, imaging, EKG, home medications and prior available records. Face to face evaluation was performed by me. I have personally examined the patient and discussed assessment and plan with the IM team. I reviewed the resident note and agree with the plan with exceptions as below. Non-STEMI History of CAD status post CABG GLORIA on CKD Intractable nausea and vomiting Marijuana use Chest pain at rest Tachyarrhythmia Uncontrolled hypertension Consulted nephrology: Continue IV fluids Troponin is uptrending. Continue aspirin, Plavix, and atorvastatin Started heparin drip Salted cardiology Ordered echocardiogram Continue metoprolol and nifedipine. Her BP Avoid marijuana use
--- NOTE | 2025-10-20 07:41 | PC.NURSE ---
Pt transferred from room 350 to 372. Upon transportation noted pt to grimace with pain. When question pt pt stated continuous to have chest pain specially with movement. EGG SMELLER called approx [phone] for chest pain.
--- NOTE | 2025-10-20 07:44 | EKG_ITS ---
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
[2025-10-20] MEDS: NITROGLYCERIN 0.4 MG SUBL BTL #25 SL (07:55)
[2025-10-20] MEDS: ONDANSETRON INJ 2 MG/ML INJ 2 ML 4 MG IVP (07:58)
[2025-10-20] MEDS: CLOPIDOGREL BISULFATE 75 MG TABLET PO (07:59)
[2025-10-20] MEDS: METOPROLOL TARTRATE 25 MG TABLET 50 MG PO ×2 (07:59→20:52)
[2025-10-20] MEDS: NIFEdipine XL 30 MG TABCR 90 MG PO (08:00)
--- NOTE | 2025-10-20 08:00 | XR_ITS ---
Examination: Retroperitoneal ultrasound, complete Technique: Multiple high resolution grayscale images of the retroperitoneum obtained, including kidneys and bladder. Exam date and time: October 20, 2025, 1212 hours INDICATIONS: Acute renal insufficiency on laboratory examination 2 days ago FINDINGS: Right kidney 10.7 cm renal cortex 1.8 cm Left kidney 10.2 cm renal cortex 1.9 cm Mild renal scar formation Bladder prevoid volume 338 cc postvoid volume 0 cc Prostate volume 32.5 cc no prostate nodules IMPRESSION: Mild bilateral renal scar formation Bilateral renal cortical thinning No hydronephrosis
[2025-10-20] MEDS: Magnesium Sulfate 4 GM Ivpb 4 GM/50 ML BAG IV (08:11)
[2025-10-20] MEDS: INSULIN LISPRO (AdmeLOG) 1 UNIT/0.01 ML UNIT SC ×2 (08:11→16:30)
[2025-10-20] MEDS: RINGERS LACTATED 1000 ML 1,000 ML 999 ML IV (09:14)
[2025-10-20] MEDS: HEPARIN SOD INJ 5000 UNIT/ML VIAL SC (09:14)
--- NOTE | 2025-10-20 09:15 | PD.RESHP ---
Documentation for date of: 10/20/25 HPI History of Present Illness Chief complaint: GLORIA on CKD History of present illness: This patient is a 49-year-old male with a history of insulin-dependent type 2 days mellitus, CAD status post CABG (2016), CKD, and hypertension who presented to [facility] ED on 10/19 from his PCPs office after being told that his creatinine was very high. Patient is admitted for management of GLORIA on CKD and intractable vomiting. According to the patient, he has had issues with vomiting for at least a year, however he has had an acute worsening over the past month, however the patient is not exactly sure as he and his partner at bedside are not the best historians. The patient states that since about a month ago, he has been having increasing frequency of his vomiting and vomits may be 3 to 4 days out of the week on average, and when he does vomit, he will vomit may be up to 10 times a day. The patient states that nothing really seems to help it except for taking marijuana, for which he has been taking daily for over 10 years. Because of his excessive vomiting, the patient has been on unable to keep down most food and fluids, and additionally he has been unable to take some of his medications throughout the week as result of the vomiting. The patient's PCP has been following the patient's CKD and has been noticing that it has been going up. According to the patient, the patient's PCP was a bit concerned about the patient's Januvia as a cause of the patient's worsening renal function, however the patient has been taking Januvia since his CABG back in 2015. On the day of the admission, the patient's PCP noticed continued worsening of the patient's renal function labs, and told the patient to seek care at [facility] ED. 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 Patient denies any fevers, chills, chest pain, shortness of breath, abdominal pain, dysuria, and headaches. ED course: Initial vitals significant for blood pressure of 148/92 and heart rate of 113. Initial labs significant for WBC 16.4, BUN 34, creatinine 4.6, lipase 124, and urinalysis positive for 3+ protein, 2+ glucose, and 1+ blood. Gallbladder ultrasound unremarkable. Patient was given 2 L of NS, Zofran, and Protonix in ED. Current Medication(s): Pending med rec Allergies (w/ Reactions): NKDA Family History: Noncontributory, mother has hypertension Patient was admitted for management of GLORIA on CKD and intractable vomiting. Nephrology consulted for GLORIA on CKD. 10/20/25: Patient seen and assessed at bedside. Had rapid response this morning due to chest pressure and nausea, reports that pain improved after given nitroglycerin. S/p 2L IVF and LR maintenance fluids overnight. Creatinine 4.0 from 4.6, improving. GFR 17. 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 Urine anion gap elevated, started on sodium bicarb 325 mg BID. Continue fluids as patient is likely azotemic from intractable vomiting. Restart Januvia 25 mg daily for glucose and renal protection. Exam Vital Signs Temp Pulse Resp BP Pulse Ox O2 Del Method 97.8 F 110 H 20 173/94 H 98 Room Air 10/20/25 07:44 10/20/25 08:00 10/20/25 07:44 10/20/25 08:00 10/20/25 07:44 10/20/25 07:44 Narrative Exam Physical Exam General: Awake and in no acute distress. Conversational and non-toxic appearing. HEENT: Normocephalic, atraumatic, mucous membranes moist. Heart: Regular rate and rhythm, normal S1 and S2, no murmurs appreciated. Lungs: Clear to auscultation with no wheezing or crackles. Abdomen: Soft, nondistended, nontender, positive bowel sounds. No guarding or rebound tenderness. Neurologic: Alert and oriented x3, no gross neurological deficit, and patient able to move all 4 extremities. Extremities: Trace edema in lower extremities. Skin: Multiple round scars on legs. No rash or ecchymoses. Results: Labs 10/24/25 04:30 10/24/25 04:30 Labs: Short CBC 10/19/25 10/20/25 Range/Units 13:44 05:40 WBC 16.4 H 11.7 H (3.8-10.6) Thou/mm3 Hgb 15.5 13.7 (13.5-16.0) g/dL Hct 43.9 38.8 L (41.0-53.0) % Plt Count 334 295 D (140-440) Thou/mm3 BMP 10/19/25 10/20/25 13:44 05:40 Sodium 145 144 Potassium 4.1 3.6 D Chloride 107 109 H Carbon Dioxide 23.7 20.9 BUN 34 H 31 H Creatinine 4.6 H* 4.0 H D Glucose 211 H 174 H Calcium 9.3 8.6 Cardiac Enzymes 10/20/25 Range/Units 05:40 Troponin I 0.516 H* (0.0-0.045) ng/mL Liver Function 10/19/25 10/20/25 Range/Units 13:44 05:40 Total Bilirubin 1.2 1.3 H (0.3-1.2) mg/dL AST 19 17 (0-34) U/L ALT 11 8 L (10-49) U/L Alkaline Phosphatase 107 92 (46-116) U/L Albumin 4.1 3.8 (3.5-5.0) gm/dL Urine 10/19/25 Range/Units 14:20 Urine Color Lt-Yellow (Lt Yel-Yel) Urine Clarity Clear (Clear/Hazy) Urine pH 6.5 (5.0-7.0) Ur Specific [place] 1.016 (1.001-1.035) Urine Protein 3+ A (Neg - Trace) Urine Glucose (UA) 2+ A (Negative) Quality Measures Quality Measures none Medications Home Medications and Allergies Home Medications ?Medication ?Instructions ?Recorded ?Confirmed ?Type amlodipine 10 mg tablet (Norvasc) 10 mg PO QDAY #0 tabs 04/12/17 10/20/25 History clopidogrel 75 mg tablet (Plavix) 75 mg PO QDAY #0 tabs 04/12/17 10/20/25 History famotidine 20 mg tablet (Pepcid) 20 mg PO QDAY #0 tabs 04/12/17 10/20/25 History metoprolol tartrate 25 mg tablet 50 mg PO BID #0 tabs 04/12/17 10/20/25 History atorvastatin 40 mg tablet 40 mg PO QDAY 01/21/25 10/20/25 History insulin glargine 100 unit/mL (3 49 unit subcut QDAY 01/21/25 10/20/25 History mL) subcutaneous pen (Basaglar FatumaPen U-100 Insulin) aspirin 81 mg tablet 81 mg PO QDAY 10/20/25 10/20/25 History sitagliptin phosphate 100 mg 100 mg PO QDAY 10/20/25 10/20/25 History tablet (Januvia) Allergies Allergy/AdvReac Type Severity Reaction Status Date / Time No Known Allergies Allergy Verified 10/19/25 12:13 Visit Medications Acetaminophen (Acetaminophen 325 Mg Tablet) 650 mg PO Q6H PRN PRN Reason: Fever >101.5 or pain 1-3 Stop: 11/18/25 21:11 Atorvastatin Calcium (Atorvastatin Calcium 20 Mg Tablet) 40 mg PO HS ALEXANDRA Stop: 11/19/25 20:59 Clopidogrel Bisulfate (Clopidogrel Bisulfate 75 Mg Tablet) 75 mg PO QDAY ALEXANDRA Stop: 11/19/25 08:59 Last Admin: 10/20/25 07:59 Dose: 75 mg Dextrose (Dextrose 50%-Water Inj 50 Ml Syringe) 25 ml IV Q15MIN PRN PRN Reason: BG 50-70 responsive npo pt Stop: 11/18/25 21:18 Dextrose (Dextrose 50%-Water Inj 50 Ml Syringe) 50 ml IV Q15MIN PRN PRN Reason: BG <50 OR BG <70 & pt unresponsive Stop: 11/18/25 21:18 Glucagon (Glucagon Inj 1 Mg Vial) 1 mg IM Q15MIN PRN PRN Reason: BG <70, and no IV access Heparin Sodium (Porcine) (Heparin Sod Inj 5000 Unit/Ml Vial) 5,000 unit SC Q12H ALEXANDRA Stop: 11/02/25 21:29 Last Admin: 10/19/25 22:13 Dose: 5,000 unit Hydralazine HCl (Hydralazine Inj 20 Mg/Ml Vial) 10 mg IVP Q4H PRN PRN Reason: Give if SBP >180 Stop: 11/19/25 04:07 Magnesium Sulfate (Magnesium Sulfate Ivpb) 4 gm in 50 mls @ 12.5 mls/hr IV X1 ONE Stop: 10/20/25 10:57 Last Admin: 10/20/25 08:11 Dose: 12.5 mls/hr Influenza Virus Vaccine Quadrival (Influenza Virus 0.5 Ml Syringe ) 0.5 ml IMi .ONCE ONE Stop: 10/21/25 08:01 Insulin Human Lispro (Insulin Lispro (Admelog) 1 Unit/0.01 Ml Unit) 0 unit SC AC ALEXANDRA; Protocol Stop: 11/19/25 07:29 Last Admin: 10/20/25 08:11 Dose: 2 unit Metoprolol Tartrate (Metoprolol Tartrate 25 Mg Tablet) 50 mg PO BID [facility] Stop: 11/19/25 08:59 Last Admin: 10/20/25 07:59 Dose: 50 mg Nifedipine (Nifedipine Xl 30 Mg Tabcr) 90 mg PO QDAY [facility] Stop: 11/19/25 08:59 Last Admin: 10/20/25 08:00 Dose: 90 mg Ondansetron HCl (Ondansetron Inj 2 Mg/Ml Inj 2 Ml) 4 mg IVP Q6H PRN; Protocol PRN Reason: NAUSEA OR VOMITING Stop: 11/18/25 21:11 Pantoprazole Sodium (Pantoprazole Inj 40 Mg Vial) 40 mg IVP QDAY [facility] Stop: 11/19/25 08:59 Last Admin: 10/20/25 07:52 Dose: 40 mg Sennosides (Senna/Docusate Sod 1 Tab Tablet) 1 tab PO QDAY PRN; Protocol PRN Reason: CONSTIPATION Stop: 11/18/25 22:10 Discontinued Medications Amlodipine Besylate (Amlodipine Besylate 5 Mg Tablet) 10 mg PO QDAY [facility] Stop: 11/19/25 08:59 Hydralazine HCl (Hydralazine Inj 20 Mg/Ml Vial) 10 mg IVP X1 ONE Stop: 10/20/25 04:08 Last Admin: 10/20/25 04:42 Dose: 10 mg Sodium Chloride (Ns) 1,000 mls @ 999 mls/hr IV .Q1H1M ONE Stop: 10/19/25 14:33 Last Infusion: 10/19/25 20:24 Dose: Infused Sodium Chloride (Ns) 1,000 mls @ 999 mls/hr IV .Q1H1M ONE Stop: 10/19/25 21:20 Last Infusion: 10/19/25 21:38 Dose: Infused Lactated Ringer's (Lactated Ringers) 1,000 mls @ 999 mls/hr IV .Q1H1M ONE Stop: 10/19/25 22:16 Last Admin: 10/19/25 22:08 Dose: 999 mls/hr Lactated Ringer's (Lactated Ringers) 1,000 mls @ 150 mls/hr IV .Q6H40M ONE Stop: 10/20/25 04:11 Last Admin: 10/19/25 22:08 Dose: 150 mls/hr Lactated Ringer's (Lactated Ringers) 1,000 mls @ 999 mls/hr IV .Q1H1M ONE Stop: 10/20/25 09:01 Labetalol HCl (Labetalol 100 Mg Tablet) 100 mg PO X1 ONE Stop: 10/20/25 01:24 Last Admin: 10/20/25 01:43 Dose: 100 mg Metoclopramide HCl (Metoclopramide Inj 5 Mg/Ml Vial 2 Ml) 10 mg IVP X1 ONE; Protocol Stop: 10/20/25 05:54 Last Admin: 10/20/25 06:03 Dose: 10 mg Nifedipine (Nifedipine Xl 30 Mg Tabcr) 60 mg PO QDAY ALEXANDRA Stop: 11/19/25 08:59 Nifedipine (Nifedipine Xl 30 Mg Tabcr) 60 mg PO X1 ONE Stop: 10/19/25 22:02 Last Admin: 10/19/25 22:32 Dose: 60 mg Nitroglycerin (Nitroglycerin 0.4 Mg Subl Btl #25) 0.4 mg SL X1 ONE Stop: 10/20/25 07:47 Last Admin: 10/20/25 07:55 Dose: 1 tab Ondansetron HCl (Ondansetron Inj 2 Mg/Ml Inj 2 Ml) 4 mg IVP X1 ONE; Protocol Stop: 10/19/25 13:34 Last Admin: 10/19/25 19:25 Dose: Not Given Ondansetron HCl (Ondansetron Inj 2 Mg/Ml Inj 2 Ml) 4 mg IVP X1 ONE; Protocol Stop: 10/19/25 19:16 Last Admin: 10/19/25 19:40 Dose: 4 mg Ondansetron HCl (Ondansetron Inj 2 Mg/Ml Inj 2 Ml) 4 mg IVP X1 ONE; Protocol Stop: 10/20/25 07:49 Last Admin: 10/20/25 07:58 Dose: 4 mg Pantoprazole Sodium (Pantoprazole Inj 40 Mg Vial) 40 mg IVP X1 ONE Stop: 10/19/25 13:34 Last Admin: 10/19/25 19:25 Dose: Not Given Pantoprazole Sodium (Pantoprazole Inj 40 Mg Vial) 40 mg IVP BID ALEXANDRA Stop: 11/18/25 20:59 Last Admin: 10/19/25 20:56 Dose: 40 mg Pantoprazole Sodium (Pantoprazole Inj 40 Mg Vial) 40 mg IVP X1 ONE Stop: 10/20/25 05:53 Pantoprazole Sodium (Pantoprazole Inj 40 Mg Vial) 40 mg IVP X1 ONE Stop: 10/20/25 05:55 Last Admin: 10/20/25 06:03 Dose: 40 mg Potassium Chloride (Potassium Chloride 20 Meq Tabcr) 40 meq PO X1 ONE Stop: 10/20/25 06:58 Last Admin: 10/20/25 08:00 Dose: 40 meq Assessment & Plan Plan Patient is a 49-year-old male with a history of insulin-dependent type 2 days mellitus, CAD status post CABG (2015), CKD, and hypertension who presented to [facility] ED on 10/19 from his PCPs office after being told that his creatinine was very high. Patient is admitted for management of GLORIA on CKD and intractable vomiting. Nephrology consulted for GLORIA on CKD. #GLORIA on CKD stage IIIb, likely prerenal 2/2 intractable vomiting - Presents with worsening intractable vomiting for the past month likely secondary to marijuana use for at least 10 years. Presented previously in January 2023 also for same complaint, also presented with GLORIA. - Creatinine 4.6 -> 4.0 (baseline 1.9-2.2 in 01/2025). - eGFR 15 -> 17 (baseline 43 in 01/2025) - Renal ultrasound showed mild bilateral renal scar formation with cortical thinning, no hydronephrosis - UA showed 3+ protein, 2+ glucose, trace ketones, 1+ blood, rare bacteria. A1c 7.8. - Urine creatinine 84, urine protein greater than 250 - Likely prerenal given the patient's poor oral consumption from his worsening vomiting, which is likely cannabis hyperemesis syndrome. Plan: - Continue IV LR maintenance - Strict ins and outs - Avoid nephrotoxic drugs - Renally dose medications - Renal diet modification #Diabetic nephropathy iso uncontrolled IDDM2 - Home medications include Januvia 100 mg daily, started 1 year ago by PCP - UA showed 3+ protein, 2+ glucose, trace ketones, 1+ blood, rare bacteria. A1c 7.8. - GFR 17 (baseline 43 in 01/2025) - Likely contributing to CKD IIIB Plan: - Insulin per primary team - Januvia at 25 mg daily #?RTA type 4 - Potassium 4.1 on admission but previously as high as 5.8 in January 2025. - Bicarb 23.7 -> 20.9 - Positive urine anion gap (29.6), possibly RTA type 4 in setting of diabetes. Plan: - Start on sodium bicarb tablets 325 BID - Continue to monitor renal panel #Hypomagnesemia - Magnesium 1.5 Plan: - Replete accordingly - Keep Mg >2 #History of hypertension #Hypertensive urgency versus #Hypertensive emergency? #Leukocytosis #History of CAD status post CABG (2015) #History of acid reflux #Insulin-dependent type 2 diabetes mellitus #Marijuana use #Intractable vomiting 2/2 #Cannabis hyperemesis syndrome - Defer to primary team for management Thank you for your consultation, please do not hesitate to reach out if you have any question or concern Patient plan of care was discussed with the attending physician, Dr. Cabral. Joy Stone DO, PGY-1 Attending Provider Attestation/Addendum Patient seen and examined with resident physician Dr. Stone. Note reviewed, agree with findings and recommendations. seems to have ATN- fluctuations in BP underlying D. Nephropathy.
--- NOTE | 2025-10-20 09:53 | PC.SS ---
Follow up note: Having chest pain and vomiting. On IV meds. Cardio consulting.
[2025-10-20 11:54] LABS: Troponin I 1.172 ng/mL (0.0-0.045)
[2025-10-20 12:18] LABS: Troponin I 0.501 ng/mL (0.0-0.045)
[2025-10-20] MEDS: CAPSAICIN CR 60 GM TUBE TOP ×2 (13:00→21:11)
--- NOTE | 2025-10-20 14:10 | PD.RESEVENT ---
Documentation for date of: 10/20/25 Event Note Event Note: At 7:41 on 10-20-25, rapid response was called for significant chest pain after patient was moved to [facility]. Upon exam, patient said pain was positional and radiating down L arm; he also stated that he had been having chest pain for 4 months, sometimes at rest and sometimes while active. BP was 155/92, pulse 112, RR 20, O2 96% on room air. EKG showed sinus rhythm. Ordered nitroglycerin tablet, zofran, and repeat troponin; also given 1L bolus. Ddx includes stable or unstable angina, NSTEMI, and/or pericarditis. This case was discussed with my attending physician, Dr. Kwok, and senior resident, Dr. Maldonado. Asaf Carver, PGY1
--- NOTE | 2025-10-20 14:22 | PD.IMCONS ---
HPI Data of Consult Requesting Physician: Horacio Raymundo MD Primary Care Provider: Physician No Primary/Family Consult Narrative History of present illness: This patient is a 49-year-old male with a history of insulin-dependent type 2 days mellitus, CAD status post CABG (2015), CKD, and hypertension pt was noted to have high creatinine tropoine was elevated cardiology consulted no chest pain noted ; c/o of vomitine creatinine 4 EKG no acute changes cc:: cc: Horacio Raymundo MD Meds Home Medications and Allergies Home Medications ?Medication ?Instructions ?Recorded ?Confirmed ?Type amlodipine 10 mg tablet (Norvasc) 10 mg PO QDAY #0 tabs 04/12/17 10/20/25 History clopidogrel 75 mg tablet (Plavix) 75 mg PO QDAY #0 tabs 04/12/17 10/20/25 History famotidine 20 mg tablet (Pepcid) 20 mg PO QDAY #0 tabs 04/12/17 10/20/25 History metoprolol tartrate 25 mg tablet 50 mg PO BID #0 tabs 04/12/17 10/20/25 History atorvastatin 40 mg tablet 40 mg PO QDAY 01/21/25 10/20/25 History insulin glargine 100 unit/mL (3 49 unit subcut QDAY 01/21/25 10/20/25 History mL) subcutaneous pen (Basaglar KwikPen U-100 Insulin) aspirin 81 mg tablet 81 mg PO QDAY 10/20/25 10/20/25 History sitagliptin phosphate 100 mg 100 mg PO QDAY 10/20/25 10/20/25 History tablet (Januvia) Allergies Allergy/AdvReac Type Severity Reaction Status Date / Time No Known Allergies Allergy Verified 10/19/25 12:13 Exam Vital Signs Temp Pulse Resp BP Pulse Ox O2 Del Method 97.8 F 89 18 122/61 96 Room Air 10/20/25 12:00 10/20/25 12:00 10/20/25 12:00 10/20/25 12:00 10/20/25 12:00 10/20/25 12:00 Routine HEENT Exam Head: Present normocephalic and atraumatic Eye: Present EOMI and PERRL ENT: Present mucous membranes moist Routine Neck Exam Neck: Present supple and trachea midline Routine Respiratory Exam Respiratory: Present chest non-tender, lungs clear, normal breath sounds and no resp distress Routine Cardiovascular Exam Cardiovascular: Present RRR Routine Abdominal Exam Abdominal: Present soft and normoactive bowel sounds Routine Extremities Exam Extremities: Present full ROM Routine Skin Exam Skin: Present intact, dry and warm Routine Neurological Exam Neurological: Present alert, oriented X3 and CN II-XII intact Routine Psychiatric Exam Psychiatric: Present normal affect and normal thought process Results Labs 10/20/25 05:40 10/20/25 05:40 Labs: Short CBC 10/20/25 Range/Units 05:40 WBC 11.7 H (3.8-10.6) Thou/mm3 Hgb 13.7 (13.5-16.0) g/dL Hct 38.8 L (41.0-53.0) % Plt Count 295 D (140-440) Thou/mm3 BMP 10/19/25 10/20/25 13:44 05:40 Sodium 145 144 Potassium 4.1 3.6 D Chloride 107 109 H Carbon Dioxide 23.7 20.9 BUN 34 H 31 H Creatinine 4.6 H* 4.0 H D Glucose 211 H 174 H Calcium 9.3 8.6 Cardiac Enzymes 10/20/25 10/20/25 10/20/25 Range/Units 05:40 08:00 10:50 Troponin I 0.516 H* 0.501 H* 1.172 H* D (0.0-0.045) ng/mL Liver Function 10/19/25 10/20/25 Range/Units 13:44 05:40 Total Bilirubin 1.2 1.3 H (0.3-1.2) mg/dL AST 19 17 (0-34) U/L ALT 11 8 L (10-49) U/L Alkaline Phosphatase 107 92 (46-116) U/L Albumin 4.1 3.8 (3.5-5.0) gm/dL Urine 10/19/25 Range/Units 14:20 Urine Color Lt-Yellow (Lt Yel-Yel) Urine Clarity Clear (Clear/Hazy) Urine pH 6.5 (5.0-7.0) Ur Specific [place] 1.016 (1.001-1.035) Urine Protein 3+ A (Neg - Trace) Urine Glucose (UA) 2+ A (Negative) Assessment and Plan Assessment and plan (1) Acute renal failure: Status: Acute (2) Hyperglycemia: Status: Acute (3) Dehydration: Status: Acute (4) Acute kidney injury: Status: Acute (5) DM (diabetes mellitus): Status: Acute (6) S/P CABG x 3: Status: Acute (7) Elevated troponin: Status: Acute Additional Assessment & Plan Additional Plan: elevated troponin most likely due to acute renal failure obtain echo continue current management for acute renal failure
[2025-10-20 14:36] LABS: Troponin I 2.238 ng/mL (0.0-0.045)
[2025-10-20] MEDS: HEPARIN SOD INJ 5000 UNIT/ML VIAL 4000 UNIT IV (15:34)
[2025-10-20] MEDS: Heparin/D5w 25K 250 ML Ivpb 25,000 UNIT/250 ML BAG 12.367 UNIT IV (15:35)
[2025-10-20 20:41] LABS: Troponin I 3.318 ng/mL (0.0-0.045)
[2025-10-20] MEDS: SODIUM BICARBONATE 650 MG TABLET 325 MG PO (20:51)
[2025-10-20] MEDS: ATORVASTATIN CALCIUM 20 MG TABLET 40 MG PO (20:51)
[2025-10-20 22:37] LABS: Partial Thromboplastin Time 109.7 Seconds (22.0-36.0)
[2025-10-21] VITALS (10 sets, daily range): BP systolic 125–167; BP diastolic 63–89; PULSE 74–91; RESP 14–19; TEMP 36.1–36.9; O2SAT 96–100
[2025-10-21 03:56] LABS: Basophils # (Auto) 0.0 Thou/mm3 (0.0-0.2); Basophils % (Auto) 0 % (0-2.5); Eosinophils # (Auto) 0.1 Thou/mm3 (0.0-0.5); Eosinophils % (Auto) 1 % (0-10); Hematocrit 36.1 % (41.0-53.0); Hemoglobin 12.5 g/dL (13.5-16.0); Immature Granulocytes Auto 0.02 Thou/mm3 (0.00-0.00); Lymphocytes # (Auto) 1.7 Thou/mm3 (1.0-4.8); Lymphocytes % (Auto) 15 % (10-50); Mean Corpuscular HGB Conc 34.6 g/dl (31.0-37.0); Mean Corpuscular Hemoglobin 30.4 pg (25.0-35.0); Mean Corpuscular Volume 88 fL (80-100); Monocytes # (Auto) 0.6 Thou/mm3 (0.0-0.8); Monocytes % (Auto) 5 % (0-12); Neutrophils # (Auto) 8.7 Thou/mm3 (1.8-7.7); Neutrophils % (Auto) 78 % (37-80); Nucleated Red Blood Cell # 0.00 Thou/mm3 (0.00-0.00); Nucleated Red Blood Cell % 0 /100 WBC (0); Platelet Count 254 Thou/mm3 (140-440); RDW Standard Deviation 41.4 fL (35.1-43.9); Red Blood Count 4.11 Miln/mm3 (4.50-5.90); White Blood Count 11.1 Thou/mm3 (3.8-10.6)
[2025-10-21 04:38] LABS: Alanine Aminotransferase 7 U/L (10-49); Albumin, Serum 3.3 gm/dL (3.5-5.0); Albumin/Globulin Ratio 1.2 (1.2-2.2); Alkaline Phosphatase 80 U/L (46-116); Anion Gap 11 (7-16); Aspartate Amino Transferase 20 U/L (0-34); BUN/Creatinine Ratio 7 Ratio (12-20); Bilirubin,Total 1.0 mg/dL (0.3-1.2); Blood Urea Nitrogen 28 mg/dL (9-23); Calcium 8.0 mg/dL (8.3-10.6); Calcium (Corrected) 8.6 mg/dL (8.5-10.1); Carbon Dioxide 22.4 mMol/L (20.0-31.0); Chloride 109 mMol/L (98-107); Creatinine (Component) 4.2 mg/dL (0.6-1.3); Estimated Creatinine Clearance 23.1 mL/min (>60); Globulin 2.7 gm/dL (2.3-3.5); Glucose 166 mg/dL (74-106); Magnesium 1.8 mg/dL (1.6-2.6); Osmolality,Calculated 292 (275-295); Phosphorous 3.7 mg/dL (2.4-5.1); Potassium 4.2 mMol/L (3.4-5.1); Sodium 142 mMol/L (136-145); Total Protein 6.0 gm/dL (5.7-8.2); eGFR 16 See Note
[2025-10-21 04:43] LABS: Troponin I 3.669 ng/mL (0.0-0.045)
[2025-10-21] MEDS: CAPSAICIN CR 60 GM TUBE TOP ×2 (06:06→14:58)
[2025-10-21 06:30] LABS: Partial Thromboplastin Time 53.6 Seconds (22.0-36.0)
[2025-10-21] MEDS: NIFEdipine XL 30 MG TABCR 90 MG PO (08:27)
[2025-10-21] MEDS: SODIUM BICARBONATE 650 MG TABLET 325 MG PO ×2 (08:27→20:13)
[2025-10-21] MEDS: METOPROLOL TARTRATE 25 MG TABLET 50 MG PO ×2 (08:27→20:13)
[2025-10-21] MEDS: CLOPIDOGREL BISULFATE 75 MG TABLET PO (08:28)
[2025-10-21] MEDS: ASPIRIN EC 81 MG TABEC PO (08:28)
--- NOTE | 2025-10-21 08:52 | ESPR_ITS ---
Documentation for date of: 10/21/25 Subjective Subjective Interval history: History of present illness: This patient is a 49-year-old male with a history of insulin-dependent type 2 days mellitus, CAD status post CABG (2016), CKD, and hypertension who presented to [facility] ED on 10/19 from his PCPs office after being told that his creatinine was very high. Patient is admitted for management of GLORIA on CKD and intractable vomiting. According to the patient, he has had issues with vomiting for at least a year, however he has had an acute worsening over the past month, however the patient is not exactly sure as he and his partner at bedside are not the best historians. The patient states that since about a month ago, he has been having increasing frequency of his vomiting and vomits may be 3 to 4 days out of the week on average, and when he does vomit, he will vomit may be up to 10 times a day. The patient states that nothing really seems to help it except for taking marijuana, for which he has been taking daily for over 10 years. Because of his excessive vomiting, the patient has been on unable to keep down most food and fluids, and additionally he has been unable to take some of his medications throughout the week as result of the vomiting. The patient's PCP has been following the patient's CKD and has been noticing that it has been going up. According to the patient, the patient's PCP was a bit concerned about the patient's Januvia as a cause of the patient's worsening renal function, however the patient has been taking Januvia since his CABG back in 2015. On the day of the admission, the patient's PCP noticed continued worsening of the patient's renal function labs, and told the patient to seek care at [facility] ED. The patient does not follow any restaurant front manager and has not followed up with any testing consultant for his CAD status post CABG. Patient denies any fevers, chills, chest pain, shortness of breath, abdominal pain, dysuria, and headaches. ED course: Initial vitals significant for blood pressure of 148/92 and heart rate of 113. Initial labs significant for WBC 16.4, BUN 34, creatinine 4.6, lipase 124, and urinalysis positive for 3+ protein, 2+ glucose, and 1+ blood. Gallbladder ultrasound unremarkable. Patient was given 2 L of NS, Zofran, and Protonix in ED. Current Medication(s): Pending med rec Allergies (w/ Reactions): NKDA Family History: Noncontributory, mother has hypertension Patient was admitted for management of GLORIA on CKD and intractable vomiting. Nephrology consulted for GLORIA on CKD. 10/20/25: Patient seen and assessed at bedside. Had rapid response this morning due to chest pressure and nausea, reports that pain improved after given nitroglycerin. S/p 2L IVF and LR maintenance fluids overnight. Creatinine 4.0 from 4.6, improving. GFR 17. 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 Urine anion gap elevated, started on sodium bicarb 325 mg BID. Continue fluids as patient is likely azotemic from intractable vomiting. Restart Januvia 25 mg daily for glucose and renal protection. 10/21/25: Patient seen and assessed at bedside. UOP 1 L. BUN 42, creatinine 4.2, GFR 15. Glucose 166. Magnesium 1.5, repleted. Continue Januvia and sodium bicarb tablets. Exam Vital Signs Temp Pulse Resp BP Pulse Ox O2 Del Method 98.3 F 89 18 167/89 H 97 Room Air 10/21/25 04:00 10/21/25 08:27 10/21/25 07:22 10/21/25 08:27 10/21/25 07:22 10/21/25 04:00 Narrative Exam Physical Exam General: Awake and in no acute distress. Conversational and non-toxic appearing. HEENT: Normocephalic, atraumatic, mucous membranes moist. Heart: Regular rate and rhythm, normal S1 and S2, no murmurs appreciated. Lungs: Clear to auscultation with no wheezing or crackles. Abdomen: Soft, nondistended, nontender, positive bowel sounds. No guarding or rebound tenderness. Neurologic: Alert and oriented x3, no gross neurological deficit, and patient able to move all 4 extremities. Extremities: Trace edema in lower extremities. Skin: Multiple round scars on legs. No rash or ecchymoses. Objective Labs 10/24/25 04:30 10/24/25 04:30 Labs: Laboratory Results - last 24 hr 10/20/25 10/20/25 10/20/25 08:00 10:50 13:30 WBC RBC Hgb Hct MCV MCH MCHC RDW Std Deviation Plt Count Neut % (Auto) Lymph % (Auto) [place] % (Auto) Eos % (Auto) Baso % (Auto) Neut # (Auto) Lymph # (Auto) [place] # (Auto) Eos # (Auto) Baso # (Auto) Immature Gran # (Auto) Absolute Nucleated RBC Immature Gran % Nucleated RBC % APTT Sodium Potassium Chloride Carbon Dioxide Anion Gap BUN Creatinine Estim Creat Clear Calc eGFR BUN/Creatinine Ratio Glucose Calculated Osmolality Calcium Corrected Calcium Phosphorus Magnesium Total Bilirubin AST ALT Alkaline Phosphatase Troponin I 0.501 H* 1.172 H* D 2.238 H* D Total Protein Albumin Globulin Albumin/Globulin Ratio 10/20/25 10/20/25 10/21/25 19:55 21:25 03:34 WBC 11.1 H RBC 4.11 L Hgb 12.5 L Hct 36.1 L MCV 88 MCH 30.4 MCHC 34.6 RDW Std Deviation 41.4 Plt Count 254 D Neut % (Auto) 78 Lymph % (Auto) 15 [place] % (Auto) 5 Eos % (Auto) 1 Baso % (Auto) 0 Neut # (Auto) 8.7 H Lymph # (Auto) 1.7 [place] # (Auto) 0.6 Eos # (Auto) 0.1 Baso # (Auto) 0.0 Immature Gran # (Auto) 0.02 H Absolute Nucleated RBC 0.00 Immature Gran % 0 Nucleated RBC % 0 APTT 109.7 H* D Sodium 142 Potassium 4.2 D Chloride 109 H Carbon Dioxide 22.4 Anion Gap 11 BUN 28 H Creatinine 4.2 H* Estim Creat Clear Calc 23.1 L eGFR 16 L BUN/Creatinine Ratio 7 L Glucose 166 H Calculated Osmolality 292 Calcium 8.0 L Corrected Calcium 8.6 Phosphorus 3.7 Magnesium 1.8 Total Bilirubin 1.0 AST 20 ALT 7 L Alkaline Phosphatase 80 Troponin I 3.318 H* D 3.669 H* D Total Protein 6.0 Albumin 3.3 L D Globulin 2.7 Albumin/Globulin Ratio 1.2 10/21/25 05:32 WBC RBC Hgb Hct MCV MCH MCHC RDW Std Deviation Plt Count Neut % (Auto) Lymph % (Auto) [place] % (Auto) Eos % (Auto) Baso % (Auto) Neut # (Auto) Lymph # (Auto) [place] # (Auto) Eos # (Auto) Baso # (Auto) Immature Gran # (Auto) Absolute Nucleated RBC Immature Gran % Nucleated RBC % APTT 53.6 H D Sodium Potassium Chloride Carbon Dioxide Anion Gap BUN Creatinine Estim Creat Clear Calc eGFR BUN/Creatinine Ratio Glucose Calculated Osmolality Calcium Corrected Calcium Phosphorus Magnesium Total Bilirubin AST ALT Alkaline Phosphatase Troponin I Total Protein Albumin Globulin Albumin/Globulin Ratio Quality Measures Quality Measures none Assessment & Plan Assessment Current Active Medications: Generic Name Dose Route Start Last Admin Trade Name Freq PRN Reason Stop Dose Admin Acetaminophen 650 mg 10/19/25 21:12 Acetaminophen 325 Mg Tablet PO 11/18/25 21:11 Q6H PRN Fever >101.5 or pain 1-3 Aspirin 81 mg 10/21/25 09:00 10/21/25 08:28 Aspirin Ec 81 Mg Tabec PO 11/20/25 08:59 81 mg QDAY ALEXANDRA Administration Atorvastatin Calcium 40 mg 10/20/25 21:00 10/20/25 20:51 Atorvastatin Calcium 20 Mg Tablet PO 11/19/25 20:59 40 mg HS ALEXANDRA Administration Capsaicin 0 gm 10/20/25 09:45 10/21/25 06:06 Capsaicin Cr 60 Gm Tube TOP 11/19/25 09:44 1 applicatio TID ALEXANDRA Administration Clopidogrel Bisulfate 75 mg 10/20/25 09:00 10/21/25 08:28 Clopidogrel Bisulfate 75 Mg Tablet PO 11/19/25 08:59 75 mg QDAY ALEXANDRA Administration Dextrose 25 ml 10/19/25 21:19 Dextrose 50%-Water Inj 50 Ml Syringe IV 11/18/25 21:18 Q15MIN PRN BG 50-70 responsive npo pt Dextrose 50 ml 10/19/25 21:19 Dextrose 50%-Water Inj 50 Ml Syringe IV 11/18/25 21:18 Q15MIN PRN BG <50 OR BG <70 & pt unresponsive Glucagon 1 mg 10/19/25 21:19 Glucagon Inj 1 Mg Vial IM Q15MIN PRN BG <70, and no IV access Hydralazine HCl 10 mg 10/20/25 04:08 Hydralazine Inj 20 Mg/Ml Vial IVP 11/19/25 04:07 Q4H PRN Give if SBP >180 Heparin Sodium/Dextrose 25,000 unit in 250 mls @ 12.367 mls/hr 10/20/25 14:45 10/21/25 07:15 Heparin In D5w Ivpb IV 11/03/25 14:44 8.73 units/kg/hr .[id number] ALEXANDRA 9 mls/hr Protocol Titration 12 UNITS/KG/HR Insulin Human Lispro 0 unit 10/20/25 07:30 10/21/25 07:40 Insulin Lispro (Admelog) 1 Unit/0.01 Ml Unit SC 11/19/25 07:29 Not Given AC ALEXANDRA Protocol Metoprolol Tartrate 50 mg 10/20/25 09:00 10/21/25 08:27 Metoprolol Tartrate 25 Mg Tablet PO 11/19/25 08:59 50 mg BID ALEXANDRA Administration Nifedipine 90 mg 10/20/25 09:00 10/21/25 08:27 Nifedipine Xl 30 Mg Tabcr PO 11/19/25 08:59 90 mg QDAY ALEXANDRA Administration Ondansetron HCl 4 mg 10/19/25 21:12 Ondansetron Inj 2 Mg/Ml Inj 2 Ml IVP 11/18/25 21:11 Q6H PRN NAUSEA OR VOMITING Protocol Pantoprazole Sodium 40 mg 10/20/25 09:00 10/21/25 08:27 Pantoprazole Inj 40 Mg Vial IVP 11/19/25 08:59 40 mg QDAY ALEXANDRA Administration Sennosides 1 tab 10/19/25 22:11 Senna/Docusate Sod 1 Tab Tablet PO 11/18/25 22:10 QDAY PRN CONSTIPATION Protocol Sitagliptin Phosphate 25 mg 10/21/25 09:00 10/21/25 08:28 Sitagliptin Phosphate 50 Mg Tablet PO 11/20/25 08:59 25 mg QDAY ALEXANDRA Administration Sodium Bicarbonate 325 mg 10/20/25 21:00 10/21/25 08:27 Sodium Bicarbonate 650 Mg Tablet PO 11/19/25 20:59 325 mg BID ALEXANDRA Administration Plan Patient is a 49-year-old male with a history of insulin-dependent type 2 days mellitus, CAD status post CABG (2015), CKD, and hypertension who presented to [facility] ED on 10/19 from his PCPs office after being told that his creatinine was very high. Patient is admitted for management of GLORIA on CKD and intractable vomiting. Nephrology consulted for GLORIA on CKD. #GLORIA on CKD stage IIIb, likely prerenal 2/2 intractable vomiting - Presents with worsening intractable vomiting for the past month likely secondary to marijuana use for at least 10 years. Presented previously in January 2023 also for same complaint, also presented with GLORIA. - Creatinine 4.6 -> 4.0 -> 4.2 (baseline 1.9-2.2 in 01/2025). - eGFR 15 -> 17 (baseline 43 in 01/2025) - Renal ultrasound showed mild bilateral renal scar formation with cortical thinning, no hydronephrosis - UA showed 3+ protein, 2+ glucose, trace ketones, 1+ blood, rare bacteria. A1c 7.8. - Urine creatinine 84, urine protein greater than 250 - Likely prerenal given the patient's poor oral consumption from his worsening vomiting, which is likely cannabis hyperemesis syndrome. Plan: - Continue IV LR maintenance. Will hold off on dialysis as patient still has good UOP. - Strict ins and outs - Avoid nephrotoxic drugs - Renally dose medications - Renal diet modification #Diabetic nephropathy iso uncontrolled IDDM2 - Home medications include Januvia 100 mg daily, started 1 year ago by PCP - UA showed 3+ protein, 2+ glucose, trace ketones, 1+ blood, rare bacteria. A1c 7.8. - GFR 17 (baseline 43 in 01/2025) - Likely contributing to CKD IIIB Plan: - Insulin per primary team - Januvia at 25 mg daily #RTA type 4 - Potassium 4.1 on admission but previously as high as 5.8 in January 2025. - Bicarb 23.7 -> 20.9 - Positive urine anion gap (29.6), possibly RTA type 4 in setting of diabetes. Plan: - Sodium bicarb tablets 325 BID - Continue to monitor renal panel #Hypomagnesemia - Magnesium 1.5 Plan: - Replete accordingly - Keep Mg >2 #History of hypertension #Hypertensive urgency versus #Hypertensive emergency? #Leukocytosis #History of CAD status post CABG (2015) #History of acid reflux #Insulin-dependent type 2 diabetes mellitus #Marijuana use #Intractable vomiting 2/ #Cannabis hyperemesis syndrome - Defer to primary team for management Thank you for your consultation, please do not hesitate to reach out if you have any question or concern Patient plan of care was discussed with the attending physician, Dr. Cabral. Joy Stone DO, PGY-1 Attending Provider Attestation/Addendum Patient seen and examined with resident physician Dr. Stone. Note reviewed, agree with findings and recommendations. seems to have ATN- fluctuations in BP underlying D. Nephropathy. hold HD
--- NOTE | 2025-10-21 09:50 | ESPR_ITS ---
Documentation for date of: 10/21/25 Subjective Subjective Interval history: Patient was seen and examined at bedside; no acute events overnight. Patient states that chest pain improved with nitroglycerin. Echo showed stage 1 diastolic disfunction with EF 60-65%; troponin today 3.67. Renal U/S showed renal scar formation and cortical thinning. Exam Vital Signs Temp Pulse Resp BP Pulse Ox O2 Del Method 97.4 F 89 14 167/89 H 100 Room Air 10/21/25 08:00 10/21/25 08:27 10/21/25 08:00 10/21/25 08:27 10/21/25 08:00 10/21/25 08:00 Narrative Exam General: A/O x3, no acute distress, well-nourished, well-developed Eyes: PERRL, EOMI. Anicteric, vision grossly intact. Ears: No ear pain, no ear discharge, Hearing grossly intact. Nose: No nasal discharge. Mouth/Throat: Moist mucous membranes, no redness, no lesions. Neck: Neck supple, non-tender, no cervical lymphadenopathy. Lungs: Clear MURALI to auscultation and percussion, No accessory muscle use. Cardio: Normal S1/S2, regular rhythm, no murmurs, no JVD or carotid bruits. Abdomen: Soft, non-tender, no palpable masses, peristalsis present, no guarding or rebound. Extremities: Symmetrical, no significant deformities, no peripheral edema, non- tender, peripheral pulses present. Skin: No rashes, no lesions, warm to touch. Neuro: No focal neurological deficits. Psych: Cooperative, appropriate mood and effect. Objective Labs 10/21/25 03:34 10/21/25 03:34 Labs: Laboratory Results - last 24 hr 10/20/25 10/20/25 10/20/25 08:00 10:50 13:30 WBC RBC Hgb Hct MCV MCH MCHC RDW Std Deviation Plt Count Neut % (Auto) Lymph % (Auto) [place] % (Auto) Eos % (Auto) Baso % (Auto) Neut # (Auto) Lymph # (Auto) [place] # (Auto) Eos # (Auto) Baso # (Auto) Immature Gran # (Auto) Absolute Nucleated RBC Immature Gran % Nucleated RBC % APTT Sodium Potassium Chloride Carbon Dioxide Anion Gap BUN Creatinine Estim Creat Clear Calc eGFR BUN/Creatinine Ratio Glucose Calculated Osmolality Calcium Corrected Calcium Phosphorus Magnesium Total Bilirubin AST ALT Alkaline Phosphatase Troponin I 0.501 H* 1.172 H* D 2.238 H* D Total Protein Albumin Globulin Albumin/Globulin Ratio 10/20/25 10/20/25 10/21/25 19:55 21:25 03:34 WBC 11.1 H RBC 4.11 L Hgb 12.5 L Hct 36.1 L MCV 88 MCH 30.4 MCHC 34.6 RDW Std Deviation 41.4 Plt Count 254 D Neut % (Auto) 78 Lymph % (Auto) 15 [place] % (Auto) 5 Eos % (Auto) 1 Baso % (Auto) 0 Neut # (Auto) 8.7 H Lymph # (Auto) 1.7 [place] # (Auto) 0.6 Eos # (Auto) 0.1 Baso # (Auto) 0.0 Immature Gran # (Auto) 0.02 H Absolute Nucleated RBC 0.00 Immature Gran % 0 Nucleated RBC % 0 APTT 109.7 H* D Sodium 142 Potassium 4.2 D Chloride 109 H Carbon Dioxide 22.4 Anion Gap 11 BUN 28 H Creatinine 4.2 H* Estim Creat Clear Calc 23.1 L eGFR 16 L BUN/Creatinine Ratio 7 L Glucose 166 H Calculated Osmolality 292 Calcium 8.0 L Corrected Calcium 8.6 Phosphorus 3.7 Magnesium 1.8 Total Bilirubin 1.0 AST 20 ALT 7 L Alkaline Phosphatase 80 Troponin I 3.318 H* D 3.669 H* D Total Protein 6.0 Albumin 3.3 L D Globulin 2.7 Albumin/Globulin Ratio 1.2 10/21/25 05:32 WBC RBC Hgb Hct MCV MCH MCHC RDW Std Deviation Plt Count Neut % (Auto) Lymph % (Auto) [place] % (Auto) Eos % (Auto) Baso % (Auto) Neut # (Auto) Lymph # (Auto) [place] # (Auto) Eos # (Auto) Baso # (Auto) Immature Gran # (Auto) Absolute Nucleated RBC Immature Gran % Nucleated RBC % APTT 53.6 H D Sodium Potassium Chloride Carbon Dioxide Anion Gap BUN Creatinine Estim Creat Clear Calc eGFR BUN/Creatinine Ratio Glucose Calculated Osmolality Calcium Corrected Calcium Phosphorus Magnesium Total Bilirubin AST ALT Alkaline Phosphatase Troponin I Total Protein Albumin Globulin Albumin/Globulin Ratio Quality Measures Quality Measures none Assessment & Plan Assessment Current Active Medications: Generic Name Dose Route Start Last Admin Trade Name Freq PRN Reason Stop Dose Admin Acetaminophen 650 mg 10/19/25 21:12 Acetaminophen 325 Mg Tablet PO 11/18/25 21:11 Q6H PRN Fever >101.5 or pain 1-3 Aspirin 81 mg 10/21/25 09:00 10/21/25 08:28 Aspirin Ec 81 Mg Tabec PO 11/20/25 08:59 81 mg QDAY ALEXANDRA Administration Atorvastatin Calcium 40 mg 10/20/25 21:00 10/20/25 20:51 Atorvastatin Calcium 20 Mg Tablet PO 11/19/25 20:59 40 mg HS ALEXANDRA Administration Capsaicin 0 gm 10/20/25 09:45 10/21/25 06:06 Capsaicin Cr 60 Gm Tube TOP 11/19/25 09:44 1 applicatio TID ALEXANDRA Administration Clopidogrel Bisulfate 75 mg 10/20/25 09:00 10/21/25 08:28 Clopidogrel Bisulfate 75 Mg Tablet PO 11/19/25 08:59 75 mg QDAY ALEXANDRA Administration Dextrose 25 ml 10/19/25 21:19 Dextrose 50%-Water Inj 50 Ml Syringe IV 11/18/25 21:18 Q15MIN PRN BG 50-70 responsive npo pt Dextrose 50 ml 10/19/25 21:19 Dextrose 50%-Water Inj 50 Ml Syringe IV 11/18/25 21:18 Q15MIN PRN BG <50 OR BG <70 & pt unresponsive Glucagon 1 mg 10/19/25 21:19 Glucagon Inj 1 Mg Vial IM Q15MIN PRN BG <70, and no IV access Hydralazine HCl 10 mg 10/20/25 04:08 Hydralazine Inj 20 Mg/Ml Vial IVP 11/19/25 04:07 Q4H PRN Give if SBP >180 Heparin Sodium/Dextrose 25,000 unit in 250 mls @ 12.367 mls/hr 10/20/25 14:45 10/21/25 07:15 Heparin In D5w Ivpb IV 11/03/25 14:44 8.73 units/kg/hr .[id number] ALEXANDRA 9 mls/hr Protocol Titration 12 UNITS/KG/HR Insulin Human Lispro 0 unit 10/20/25 07:30 10/21/25 07:40 Insulin Lispro (Admelog) 1 Unit/0.01 Ml Unit SC 11/19/25 07:29 Not Given AC [facility] Protocol Metoprolol Tartrate 50 mg 10/20/25 09:00 10/21/25 08:27 Metoprolol Tartrate 25 Mg Tablet PO 11/19/25 08:59 50 mg BID ALEXANDRA Administration Nifedipine 90 mg 10/20/25 09:00 10/21/25 08:27 Nifedipine Xl 30 Mg Tabcr PO 11/19/25 08:59 90 mg QDAY ALEXANDRA Administration Ondansetron HCl 4 mg 10/19/25 21:12 Ondansetron Inj 2 Mg/Ml Inj 2 Ml IVP 11/18/25 21:11 Q6H PRN NAUSEA OR VOMITING Protocol Pantoprazole Sodium 40 mg 10/20/25 09:00 10/21/25 08:27 Pantoprazole Inj 40 Mg Vial IVP 11/19/25 08:59 40 mg QDAY ALEXANDRA Administration Sennosides 1 tab 10/19/25 22:11 Senna/Docusate Sod 1 Tab Tablet PO 11/18/25 22:10 QDAY PRN CONSTIPATION Protocol Sitagliptin Phosphate 25 mg 10/21/25 09:00 10/21/25 08:28 Sitagliptin Phosphate 50 Mg Tablet PO 11/20/25 08:59 25 mg QDAY ALEXANDRA Administration Sodium Bicarbonate 325 mg 10/20/25 21:00 10/21/25 08:27 Sodium Bicarbonate 650 Mg Tablet PO 11/19/25 20:59 325 mg BID ALEXANDRA Administration Plan Patient is a 49-year-old male with a PMH of insulin-dependent type 2 diabetes mellitus, CAD status post CABG (2015), CKD, and hypertension who presented to [facility] ED on 10/19 from PCP for high creatinine. Patient is admitted for management of GLORIA on CKD and intractable vomiting. #ACS vs stable angina vs unstable angina vs pericarditis #History of CAD status post CABG (2015) #Newly diagnosed diastolic CHF Stage 1 (EF 60-65%) Patient has history of CAD with triple bypass surgery 2016 in [place]; has not followed up with cardiology. Aspirin and clopidogrel refilled by PCP. On 10-20-25, had 2 episodes of chest pain (see rapid notes for more details); EKG x2 showed no ST segment changes. Troponin was initially 0.516; last one was 2.238 at 13:30. Lipid panel shows TG 197, HDL 39. 10-21-25- Echo showed stage 1 diastolic disfunction with EF 60-65%; troponin today 3.67. Plan: Cardiology consulted, thank you for recommendations- start ASA, no cath due to GLORIA on CKD, hold off on heparin Heparin drip started as benefits outweigh risks Resume patient's home clopidogrel and aspirin Cardiac diet modification Atorvastatin 40, metoprolol 50 BID, capsaicin cream (for chest pain) Continue to trend troponin #GLORIA on CKD stage IIIb, likely prerenal #Intractable vomiting 2/ #Cannabis hyperemesis syndrome History of CKD as identified from his previous labs, stage IIIb back in January 2025. The patient does not follow with a range master. The patient has been using marijuana daily for at least 10 years and has had episodes of vomiting for at least a year, with recent worsening over the past month. eGFR on 01/23/2025- 43 On admission, Creatinine 1.6, Lipase 124 Gallbladder ultrasound on 10/19 unremarkable Renal ultrasound ordered, pending CT abdomen/pelvis ordered to rule out any pancreatitis given elevated lipase and vomiting, pending Urine electrolytes, urine protein, and urine creatinine ordered, pending Plan: Received 2 L NS and 1 L LR in the ED Received 1L NS today Placed on 100mL/hr LR per nephro recs Nephrology consulted, thank you for recommendations Strict ins and outs Avoid nephrotoxic drugs, renally dose medications Renal diet modification Counseled patient on marijuana consumption decrease/cessation #History of hypertension #Hypertensive urgency? versus #Hypertensive emergency? Blood pressure max recorded on admission noted to be 201/103; BP today is 120/64. Creatinine on admission 4.6; today is 4.2 Plan: Metoprolol tartrate 50 BID Nifedipine 90 mg daily Hydralazine 10 mg IVP every 4 hours as needed if SBP >180 #Leukocytosis Patient noted to have WBC of 16.4 on admission. WBC 10/21/25 were 11.1. Plan: Continue to monitor Manage underlying vomiting with antiemetics #History of Insulin-dependent T2DM #Diabetic nephropathy History of insulin-dependent type 2 diabetes mellitus. Per , patient stumbles and has multiple foot sores. Has not yet been referred to any house registry rn and has not had any follow-up regarding his feet in an outpatient basis by his PCP. A1c 01/22/2025 13.4; A1c today 7.8 Plan: Sliding scale insulin step I Bedside glucose checks ACHS Carbohydrate consistent diet modification Wound care referral #History of acid reflux Patient takes famotidine at home Plan: Protonix 40 mg daily DVT Prophylaxis: Heparin GI Prophylaxis: Protonix Bowel: Senokot PRN Diet: Renal, cardiac, carbohydrate consistent [place]: N/A Lines: PIV Antibiotics: N/A This case was discussed with my attending physician, Dr. Kwok, and senior resident, Dr. Malin. Asaf Carver, PGY1 Senior Resident Attestation: The patient denied any chest pain, SOB, palpitations. No overnight events. Troponin has been trending up, trended up to 3.67, creatinine trended up to 4.2. The patient was given IV fluid, and repeat urine electrolytes were ordered. Nephrology on board, and counter clerk tractor parts Dr. Roland believes that the troponin has been trending up 2/2 GLORIA. Continue the patient on aspirin, Plavix and heparin drip for now including atorvastatin. I discussed with and supervised the music industry intern physician involved in the care of this patient. I personally saw and examined the patient and discussed the assessment and plan with the entire medicine team, including my attending. I agree with the assessment and plan as documented above. Barney Malin MD PGY3 Internal Medicine Attending Provider Attestation/Addendum I reviewed labs, imaging, EKG, home medications and prior available records. Face to face evaluation was performed by me. I have personally examined the patient and discussed assessment and plan with the IM team. I reviewed the resident note and agree with the plan with exceptions as below. Non-STEMI History of CAD status post CABG GLORIA on CKD Intractable nausea and vomiting Marijuana use Chest pain at rest Tachyarrhythmia Uncontrolled hypertension Consulted nephrology: Continue IV fluids Troponin is uptrending. Continue aspirin, Plavix, and atorvastatin Started heparin drip Salted cardiology Ordered echocardiogram: Showed preserved EF of 60 to 65%, grade 1 diastolic dysfunction, and elevated RVSP of 44 Continue metoprolol and nifedipine. Monitor BP Avoid marijuana use
--- NOTE | 2025-10-21 09:54 | XR_ITS ---
AP upright portable chest film on 10/21/2025 at 1106: Comparison study, chest film on 10/25/2007. INDICATION: Possible volume overload. Findings the patient's heart size was normal on the previous film, it is definitely larger on today's film some of this relates to magnification due to the AP portable film technique, nonetheless I do believe that the patient has developed mild-moderate cardiomegaly. Since the last film the patient has had capital CABG surgery evident by a few faintly identifiable prosthetic ring densities. Pulmonary vascularity is normal in both lungs and pleural space are clear It is noted that there is very extensive atherosclerotic calcification in the left brachial artery in this 49-year-old patient IMPRESSION: 1. Patient has developed slight definite cardiomegaly since the last chest film. Patient has also had CABG surgery 2. The lungs and pleural space and pulmonary vascularity are all radiographically normal 3 there is extensive atherosclerotic calcification in the left brachial artery in the arm
[2025-10-21] MEDS: MAGNESIUM OXIDE 400 MG TABLET PO (10:05)
--- NOTE | 2025-10-21 10:06 | PC.SS ---
Late note 10-20-25: SS met with patient regarding his d/c plan. Pt is alert/oriented. Pt was admitted for GLORIA. Pt confirmed demographic and contact information is correct on facesheet. Pt resides with , kids, and grandchildren. Pt ambulates independently without assistance or DME. Pt is ok with all ADLs. Patient?s pharmacy of choice is [facility] [address]. Pt named his , Mela Blair medical decision maker if he is unable. Patient?s choice is to return home upon d/c. Pt states he is diabetic, has glucometer, and test strips. Pt states he utilizes insulin injections 1X day every night. Pt states he is not on dialysis. D/C plan: Return home Next of Kin: Mela Blair, , phone# [phone] PCP: [facility] Address: Correct on facesheet
[2025-10-21] MEDS: INSULIN LISPRO (AdmeLOG) 1 UNIT/0.01 ML UNIT SC ×2 (11:50→16:44)
[2025-10-21 12:20] LABS: Partial Thromboplastin Time 51.1 Seconds (22.0-36.0)
[2025-10-21] MEDS: Heparin/D5w 25K 250 ML Ivpb 25,000 UNIT/250 ML BAG 9.275 UNIT IV (12:39)
[2025-10-21] MEDS: RINGERS LACTATED 1000 ML 1,000 ML 100 ML IV (16:38)
[2025-10-21 18:19] LABS: Troponin I 2.292 ng/mL (0.0-0.045)
[2025-10-21 19:12] LABS: Partial Thromboplastin Time 51.5 Seconds (22.0-36.0)
[2025-10-21] MEDS: ATORVASTATIN CALCIUM 20 MG TABLET 40 MG PO (20:13)
[2025-10-22] VITALS (12 sets, daily range): BP systolic 120–176; BP diastolic 77–95; PULSE 75–99; RESP 17–97; TEMP 36.1–36.8; O2SAT 97–99
[2025-10-22] MEDS: RINGERS LACTATED 1000 ML 1,000 ML 100 ML IV ×3 (01:56→23:15)
[2025-10-22 05:10] LABS: Basophils # (Auto) 0.0 Thou/mm3 (0.0-0.2); Basophils % (Auto) 0 % (0-2.5); Eosinophils # (Auto) 0.1 Thou/mm3 (0.0-0.5); Eosinophils % (Auto) 1 % (0-10); Hematocrit 34.8 % (41.0-53.0); Hemoglobin 12.2 g/dL (13.5-16.0); Immature Granulocytes Auto 0.01 Thou/mm3 (0.00-0.00); Lymphocytes # (Auto) 1.7 Thou/mm3 (1.0-4.8); Lymphocytes % (Auto) 21 % (10-50); Mean Corpuscular HGB Conc 35.1 g/dl (31.0-37.0); Mean Corpuscular Hemoglobin 30.9 pg (25.0-35.0); Mean Corpuscular Volume 88 fL (80-100); Monocytes # (Auto) 0.4 Thou/mm3 (0.0-0.8); Monocytes % (Auto) 5 % (0-12); Neutrophils # (Auto) 5.8 Thou/mm3 (1.8-7.7); Neutrophils % (Auto) 73 % (37-80); Nucleated Red Blood Cell # 0.00 Thou/mm3 (0.00-0.00); Nucleated Red Blood Cell % 0 /100 WBC (0); Platelet Count 241 Thou/mm3 (140-440); RDW Standard Deviation 40.4 fL (35.1-43.9); Red Blood Count 3.95 Miln/mm3 (4.50-5.90); White Blood Count 8.1 Thou/mm3 (3.8-10.6)
[2025-10-22] MEDS: hydrALAZINE INJ 20 MG/ML VIAL 10 MG IVP (05:27)
[2025-10-22 05:32] LABS: INR 1.0 (0.9-1.3); Partial Thromboplastin Time 30.4 Seconds (22.0-36.0); Prothrombin Time 10.3 Seconds (9.0-12.2)
[2025-10-22 05:44] LABS: Alanine Aminotransferase < 7 U/L (10-49); Albumin, Serum 3.2 gm/dL (3.5-5.0); Albumin/Globulin Ratio 1.2 (1.2-2.2); Alkaline Phosphatase 77 U/L (46-116); Anion Gap 9 (7-16); Aspartate Amino Transferase 19 U/L (0-34); BUN/Creatinine Ratio 6 Ratio (12-20); Bilirubin,Total 0.7 mg/dL (0.3-1.2); Blood Urea Nitrogen 27 mg/dL (9-23); Calcium 8.1 mg/dL (8.3-10.6); Calcium (Corrected) 8.7 mg/dL (8.5-10.1); Carbon Dioxide 24.2 mMol/L (20.0-31.0); Chloride 106 mMol/L (98-107); Creatinine (Component) 4.3 mg/dL (0.6-1.3); Estimated Creatinine Clearance 22.6 mL/min (>60); Globulin 2.6 gm/dL (2.3-3.5); Glucose 165 mg/dL (74-106); Magnesium 1.8 mg/dL (1.6-2.6); Osmolality,Calculated 286 (275-295); Phosphorous 2.8 mg/dL (2.4-5.1); Potassium 4.3 mMol/L (3.4-5.1); Sodium 139 mMol/L (136-145); Total Protein 5.8 gm/dL (5.7-8.2); eGFR 16 See Note
[2025-10-22] MEDS: HEPARIN SOD INJ 5000 UNIT/ML VIAL 4000 UNIT IVP (06:05)
[2025-10-22] MEDS: METOPROLOL TARTRATE 25 MG TABLET 50 MG PO ×2 (08:31→21:21)
[2025-10-22] MEDS: CLOPIDOGREL BISULFATE 75 MG TABLET PO (08:32)
[2025-10-22] MEDS: ASPIRIN EC 81 MG TABEC PO (08:32)
[2025-10-22] MEDS: NIFEdipine XL 30 MG TABCR 90 MG PO (08:33)
--- NOTE | 2025-10-22 09:16 | PC.SS ---
Follow up note: Dr. Cabral is consulting. Creatinine is high. Pt is possible new dialysis. Pt will return home upon dc.
[2025-10-22 11:01] LABS: Partial Thromboplastin Time 108.2 Seconds (22.0-36.0)
--- NOTE | 2025-10-22 11:04 | PD.NEPHPROG ---
Documentation for date of: 10/22/25 Subjective Subjective Interval history: Interval history: History of present illness: This patient is a 49-year-old male with a history of insulin-dependent type 2 days mellitus, CAD status post CABG (2015), CKD, and hypertension who presented to [facility] ED on 10/19 from his PCPs office after being told that his creatinine was very high. Patient is admitted for management of GLORIA on CKD and intractable vomiting. According to the patient, he has had issues with vomiting for at least a year, however he has had an acute worsening over the past month, however the patient is not exactly sure as he and his partner at bedside are not the best historians. The patient states that since about a month ago, he has been having increasing frequency of his vomiting and vomits may be 3 to 4 days out of the week on average, and when he does vomit, he will vomit may be up to 10 times a day. The patient states that nothing really seems to help it except for taking marijuana, for which he has been taking daily for over 10 years. Because of his excessive vomiting, the patient has been on unable to keep down most food and fluids, and additionally he has been unable to take some of his medications throughout the week as result of the vomiting. The patient's PCP has been following the patient's CKD and has been noticing that it has been going up. According to the patient, the patient's PCP was a bit concerned about the patient's Januvia as a cause of the patient's worsening renal function, however the patient has been taking Januvia since his CABG back in 2015. On the day of the admission, the patient's PCP noticed continued worsening of the patient's renal function labs, and told the patient to seek care at [facility] ED. The patient does not follow any circulation crew leader and has not followed up with any professor of spanish for his CAD status post CABG. Patient denies any fevers, chills, chest pain, shortness of breath, abdominal pain, dysuria, and headaches. ED course: Initial vitals significant for blood pressure of 148/92 and heart rate of 113. Initial labs significant for WBC 16.4, BUN 34, creatinine 4.6, lipase 124, and urinalysis positive for 3+ protein, 2+ glucose, and 1+ blood. Gallbladder ultrasound unremarkable. Patient was given 2 L of NS, Zofran, and Protonix in ED. Current Medication(s): Pending med rec Allergies (w/ Reactions): NKDA Family History: Noncontributory, mother has hypertension Patient was admitted for management of GLORIA on CKD and intractable vomiting. Nephrology consulted for GLORIA on CKD. 10/20/25: Patient seen and assessed at bedside. Had rapid response this morning due to chest pressure and nausea, reports that pain improved after given nitroglycerin. S/p 2L IVF and LR maintenance fluids overnight. Creatinine 4.0 from 4.6, improving. GFR 17. 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 Urine anion gap elevated, started on sodium bicarb 325 mg BID. Continue fluids as patient is likely azotemic from intractable vomiting. Restart Januvia 25 mg daily for glucose and renal protection. 10/21/25: Patient seen and assessed at bedside. UOP 1 L. BUN 42, creatinine 4.2, GFR 15. Glucose 166. Magnesium 1.5, repleted. Continue Januvia and sodium bicarb tablets. Exam Vital Signs Temp Pulse Resp BP Pulse Ox O2 Del Method 36.3 C 86 18 120/95 H 97 Room Air 10/22/25 08:00 10/22/25 08:33 10/22/25 08:20 10/22/25 08:33 10/22/25 08:20 10/22/25 08:00 Narrative Exam Physical Exam General: Awake and in no acute distress. Conversational and non-toxic appearing. HEENT: Normocephalic, atraumatic, mucous membranes moist. Heart: Regular rate and rhythm, normal S1 and S2, no murmurs appreciated. Lungs: Clear to auscultation with no wheezing or crackles. Abdomen: Soft, nondistended, nontender, positive bowel sounds. No guarding or rebound tenderness. Neurologic: Alert and oriented x3, no gross neurological deficit, and patient able to move all 4 extremities. Extremities: Trace edema in lower extremities. Skin: Multiple round scars on legs. No rash or ecchymoses. Objective Labs 10/24/25 04:30 10/24/25 04:30 Labs: Laboratory Results - last 24 hr 10/21/25 10/21/25 10/21/25 11:30 17:14 18:39 WBC RBC Hgb Hct MCV MCH MCHC RDW Std Deviation Plt Count Neut % (Auto) Lymph % (Auto) [place] % (Auto) Eos % (Auto) Baso % (Auto) Neut # (Auto) Lymph # (Auto) [place] # (Auto) Eos # (Auto) Baso # (Auto) Immature Gran # (Auto) Absolute Nucleated RBC Immature Gran % Nucleated RBC % PT INR APTT 51.1 H 51.5 H Sodium Potassium Chloride Carbon Dioxide Anion Gap BUN Creatinine Estim Creat Clear Calc eGFR BUN/Creatinine Ratio Glucose Calculated Osmolality Calcium Corrected Calcium Phosphorus Magnesium Total Bilirubin AST ALT Alkaline Phosphatase Troponin I 2.292 H* D Total Protein Albumin Globulin Albumin/Globulin Ratio 10/22/25 10/22/25 05:05 09:57 WBC 8.1 RBC 3.95 L Hgb 12.2 L Hct 34.8 L MCV 88 MCH 30.9 MCHC 35.1 RDW Std Deviation 40.4 Plt Count 241 Neut % (Auto) 73 Lymph % (Auto) 21 [place] % (Auto) 5 Eos % (Auto) 1 Baso % (Auto) 0 Neut # (Auto) 5.8 Lymph # (Auto) 1.7 [place] # (Auto) 0.4 Eos # (Auto) 0.1 Baso # (Auto) 0.0 Immature Gran # (Auto) 0.01 H Absolute Nucleated RBC 0.00 Immature Gran % 0 Nucleated RBC % 0 PT 10.3 INR 1.0 APTT 30.4 D 108.2 H* D Sodium 139 Potassium 4.3 Chloride 106 Carbon Dioxide 24.2 Anion Gap 9 BUN 27 H Creatinine 4.3 H* Estim Creat Clear Calc 22.6 L eGFR 16 L BUN/Creatinine Ratio 6 L Glucose 165 H Calculated Osmolality 286 Calcium 8.1 L Corrected Calcium 8.7 Phosphorus 2.8 Magnesium 1.8 Total Bilirubin 0.7 AST 19 ALT < 7 L Alkaline Phosphatase 77 Troponin I Total Protein 5.8 Albumin 3.2 L Globulin 2.6 Albumin/Globulin Ratio 1.2 Assessment & Plan Assessment and plan (1) Acute renal failure: Status: Acute (2) Hyperglycemia: Status: Acute (3) Dehydration: Status: Acute (4) Acute kidney injury: Status: Acute (5) DM (diabetes mellitus): Status: Acute (6) S/P CABG x 3: Status: Acute (7) Elevated troponin: Status: Acute Additional Assessment & Plan Additional Plan: Patient is a 49-year-old male with a history of insulin-dependent type 2 days mellitus, CAD status post CABG (2015), CKD, and hypertension who presented to [facility] ED on 10/19 from his PCPs office after being told that his creatinine was very high. Patient is admitted for management of GLORIA on CKD and intractable vomiting. Nephrology consulted for GLORIA on CKD. #GLORIA on CKD stage IIIb, likely prerenal 2/2 intractable vomiting - Presents with worsening intractable vomiting for the past month likely secondary to marijuana use for at least 10 years. Presented previously in January 2023 also for same complaint, also presented with GLORIA. - Creatinine 4.6 -> 4.0 -> 4.2 (baseline 1.9-2.2 in 01/2025). - eGFR 15 -> 17 (baseline 43 in 01/2025) - Renal ultrasound showed mild bilateral renal scar formation with cortical thinning, no hydronephrosis - UA showed 3+ protein, 2+ glucose, trace ketones, 1+ blood, rare bacteria. A1c 7.8. - Urine creatinine 84, urine protein greater than 250 - Likely prerenal given the patient's poor oral consumption from his worsening vomiting, which is likely cannabis hyperemesis syndrome. Plan: - Continue IV LR maintenance. Will hold off on dialysis as patient still has good UOP. - Strict ins and outs - Avoid nephrotoxic drugs - Renally dose medications - Renal diet modification #Diabetic nephropathy iso uncontrolled IDDM2 - Home medications include Januvia 100 mg daily, started 1 year ago by PCP - UA showed 3+ protein, 2+ glucose, trace ketones, 1+ blood, rare bacteria. A1c 7.8. - GFR 17 (baseline 43 in 01/2025) - Likely contributing to CKD IIIB Plan: - Insulin per primary team - Januvia at 25 mg daily #RTA type 4 - Potassium 4.1 on admission but previously as high as 5.8 in January 2025. - Bicarb 23.7 -> 20.9 - Positive urine anion gap (29.6), possibly RTA type 4 in setting of diabetes. Plan: - Sodium bicarb tablets 325 BID - Continue to monitor renal panel #Hypomagnesemia - Magnesium 1.5 Plan: - Replete accordingly - Keep Mg >2 #History of hypertension #Hypertensive urgency versus #Hypertensive emergency? #Leukocytosis #History of CAD status post CABG (2015) #History of acid reflux #Insulin-dependent type 2 diabetes mellitus #Marijuana use #Intractable vomiting 2/2 #Cannabis hyperemesis syndrome - Defer to primary team for management Quality - progress note Quality Measures Quality Measures: VTE prophylaxis Reason for Continued Stay Reason for Continued Stay: further monitoring
[2025-10-22] MEDS: INSULIN LISPRO (AdmeLOG) 1 UNIT/0.01 ML UNIT SC (11:34)
[2025-10-22] MEDS: Heparin/D5w 25K 250 ML Ivpb 25,000 UNIT/250 ML BAG 10.306 UNIT IV (12:41)
[2025-10-22 13:15] LABS: Chloride,Urine Random 67.0 mMol/L (55.0-125.0); Creatinine,Random Urine 60 mg/dL (30-125); Potassium,Urine Random 19 mMol/L (12-62); Sodium,Urine Random 73.8 mMol/L (20.0-110.0)
--- NOTE | 2025-10-22 15:34 | ESPR_ITS ---
Documentation for date of: 10/22/25 Subjective - Hospitalist Subjective Interval history: Troponin peaked Creatinine is not improving Patient reported no chest pain or shortness of breath. No nausea or vomiting. He feels okay. Discussed with nephrology: No indication for hemodialysis at this time Review of Systems Review of Systems Narrative Review of Systems: 12 point of system reviewed. All negative except as mentioned in the HPI Exam Vital Signs Temp Pulse Resp BP Pulse Ox O2 Del Method 97.8 F 78 17 154/77 H 98 Room Air 10/22/25 12:00 10/22/25 12:00 10/22/25 12:00 10/22/25 12:00 10/22/25 12:00 10/22/25 12:00 Narrative General: Alert and oriented x3. In no acute distress. Eyes: Pupils are equal and reactive to light bilaterally. HEENT: Atraumatic, normocephalic. No JVD noted. Cardiovascular: Normal S1 and S2. Normal rate and regular rhythm. No murmurs appreciated. No peripheral pitting edema noted. No JVD noted. Respiratory: No respiratory distress. Lungs are clear to auscultation bilaterally. No wheezing or crackles heard. Abdomen: Soft, nontender, nondistended. Skin: No rash. Musculoskeletal: No gross injuries. Able to move all 4 extremities. Neuro: Alert and oriented x3. Sensation is intact throughout. Strength is 5/5 and symmetric. No focal neuro deficits. Psych: Normal affect and mood. Objective - Hospitalist Labs Diagram: 10/22/25 05:05 10/22/25 05:05 Labs: Laboratory Results - last 24 hr 10/21/25 10/21/25 10/22/25 17:14 18:39 05:05 WBC 8.1 RBC 3.95 L Hgb 12.2 L Hct 34.8 L MCV 88 MCH 30.9 MCHC 35.1 RDW Std Deviation 40.4 Plt Count 241 Neut % (Auto) 73 Lymph % (Auto) 21 [place] % (Auto) 5 Eos % (Auto) 1 Baso % (Auto) 0 Neut # (Auto) 5.8 Lymph # (Auto) 1.7 [place] # (Auto) 0.4 Eos # (Auto) 0.1 Baso # (Auto) 0.0 Immature Gran # (Auto) 0.01 H Absolute Nucleated RBC 0.00 Immature Gran % 0 Nucleated RBC % 0 PT 10.3 INR 1.0 APTT 51.5 H 30.4 D Sodium 139 Potassium 4.3 Chloride 106 Carbon Dioxide 24.2 Anion Gap 9 BUN 27 H Creatinine 4.3 H* Estim Creat Clear Calc 22.6 L eGFR 16 L BUN/Creatinine Ratio 6 L Glucose 165 H Calculated Osmolality 286 Calcium 8.1 L Corrected Calcium 8.7 Phosphorus 2.8 Magnesium 1.8 Total Bilirubin 0.7 AST 19 ALT < 7 L Alkaline Phosphatase 77 Troponin I 2.292 H* D Total Protein 5.8 Albumin 3.2 L Globulin 2.6 Albumin/Globulin Ratio 1.2 Ur Random Creatinine Ur Random Sodium Ur Random Potassium Ur Random Chloride 10/22/25 10/22/25 09:57 11:00 WBC RBC Hgb Hct MCV MCH MCHC RDW Std Deviation Plt Count Neut % (Auto) Lymph % (Auto) [place] % (Auto) Eos % (Auto) Baso % (Auto) Neut # (Auto) Lymph # (Auto) [place] # (Auto) Eos # (Auto) Baso # (Auto) Immature Gran # (Auto) Absolute Nucleated RBC Immature Gran % Nucleated RBC % PT INR APTT 108.2 H* D Sodium Potassium Chloride Carbon Dioxide Anion Gap BUN Creatinine Estim Creat Clear Calc eGFR BUN/Creatinine Ratio Glucose Calculated Osmolality Calcium Corrected Calcium Phosphorus Magnesium Total Bilirubin AST ALT Alkaline Phosphatase Troponin I Total Protein Albumin Globulin Albumin/Globulin Ratio Ur Random Creatinine 60 Ur Random Sodium 73.8 Ur Random Potassium 19 Ur Random Chloride 67.0 Assessment & Plan Patient Synopsis Patient is a 49-year-old male with a PMH of insulin-dependent type 2 diabetes mellitus, CAD status post CABG (2015), CKD, and hypertension who presented to [facility] ED on 10/19 from PCP for high creatinine. Patient is admitted for management of GLORIA on CKD and intractable vomiting. #ACS vs stable angina vs unstable angina vs pericarditis #History of CAD status post CABG (2015) #Newly diagnosed diastolic CHF Stage 1 (EF 60-65%) Patient has history of CAD with triple bypass surgery 2016 in [place]; has not followed up with cardiology. Aspirin and clopidogrel refilled by PCP. On 10-20-25, had 2 episodes of chest pain (see rapid notes for more details); EKG x2 showed no ST segment changes. Troponin was initially 0.516; last one was 2.238 at 13:30. Lipid panel shows TG 197, HDL 39. 10-21-25- Echo showed stage 1 diastolic disfunction with EF 60-65%; troponin today 3.67. Plan: Cardiology consulted, thank you for recommendations- start ASA, no cath due to GLORIA on CKD, hold off on heparin Heparin drip started as benefits outweigh risks Resume patient's home clopidogrel and aspirin Cardiac diet modification Atorvastatin 40, metoprolol 50 BID, capsaicin cream (for chest pain) Troponin peaked #GLORIA on CKD stage IIIb, likely prerenal #Intractable vomiting / #Cannabis hyperemesis syndrome History of CKD as identified from his previous labs, stage IIIb back in January 2025. The patient does not follow with a risk control manager. The patient has been using marijuana daily for at least 10 years and has had episodes of vomiting for at least a year, with recent worsening over the past month. eGFR on 01/23/2025- 43 On admission, Creatinine 1.6, Lipase 124 Gallbladder ultrasound on 10/19 unremarkable Renal ultrasound ordered, pending CT abdomen/pelvis ordered to rule out any pancreatitis given elevated lipase and vomiting, pending Urine electrolytes, urine protein, and urine creatinine ordered, pending Plan: 10/22: Discussed with nephrology: Creatinine is not improving but no indication for hemodialysis at this time. May need dialysis if cardiology wants to pursue with cardiac catheterization Received 2 L NS and 1 L LR in the ED Received 1L NS today Placed on 100mL/hr LR per nephro recs Nephrology consulted, thank you for recommendations Strict ins and outs Avoid nephrotoxic drugs, renally dose medications Renal diet modification Counseled patient on marijuana consumption decrease/cessation #History of hypertension #Hypertensive urgency? versus #Hypertensive emergency? Blood pressure max recorded on admission noted to be 201/103; BP today is 120/64. Creatinine on admission 4.6; today is 4.2 Plan: Metoprolol tartrate 50 BID Nifedipine 90 mg daily Hydralazine 10 mg IVP every 4 hours as needed if SBP >180 #Leukocytosis Patient noted to have WBC of 16.4 on admission. WBC 10/21/25 were 11.1. Plan: Continue to monitor Manage underlying vomiting with antiemetics #History of Insulin-dependent T2DM #Diabetic nephropathy History of insulin-dependent type 2 diabetes mellitus. Per , patient stumbles and has multiple foot sores. Has not yet been referred to any environmental department manager and has not had any follow-up regarding his feet in an outpatient basis by his PCP. A1c 01/22/2025 13.4; A1c today 7.8 Plan: Sliding scale insulin step I Bedside glucose checks ACHS Carbohydrate consistent diet modification Wound care referral #History of acid reflux Patient takes famotidine at home Plan: Protonix 40 mg daily DVT Prophylaxis: Heparin GI Prophylaxis: Protonix Bowel: Senokot PRN Diet: Renal, cardiac, carbohydrate consistent [place]: N/A Lines: PIV Antibiotics: N/A Time Spent with Patient Time: Total time spent is greater than 50% in coordination of care (as documented) at patient's floor/unit and/or counseling patient: Time with patient: 25 - 35 minutes Reason for Continued Stay Reason for continued stay: other Quality Measures Quality Measures VTE prophylaxis
[2025-10-22 20:34] LABS: Partial Thromboplastin Time 60.4 Seconds (22.0-36.0)
[2025-10-22] MEDS: ATORVASTATIN CALCIUM 20 MG TABLET 40 MG PO (21:21)
[2025-10-23] VITALS (14 sets, daily range): BP systolic 146–198; BP diastolic 76–98; PULSE 70–86; RESP 16–98; TEMP 36.1–36.5; O2SAT 97–99
[2025-10-23 05:38] LABS: Basophils # (Auto) 0.0 Thou/mm3 (0.0-0.2); Basophils % (Auto) 0 % (0-2.5); Eosinophils # (Auto) 0.1 Thou/mm3 (0.0-0.5); Eosinophils % (Auto) 1 % (0-10); Hematocrit 34.5 % (41.0-53.0); Hemoglobin 11.8 g/dL (13.5-16.0); Immature Granulocytes Auto 0.03 Thou/mm3 (0.00-0.00); Lymphocytes # (Auto) 1.3 Thou/mm3 (1.0-4.8); Lymphocytes % (Auto) 17 % (10-50); Mean Corpuscular HGB Conc 34.2 g/dl (31.0-37.0); Mean Corpuscular Hemoglobin 30.1 pg (25.0-35.0); Mean Corpuscular Volume 88 fL (80-100); Monocytes # (Auto) 0.4 Thou/mm3 (0.0-0.8); Monocytes % (Auto) 6 % (0-12); Neutrophils # (Auto) 5.7 Thou/mm3 (1.8-7.7); Neutrophils % (Auto) 75 % (37-80); Nucleated Red Blood Cell # 0.00 Thou/mm3 (0.00-0.00); Nucleated Red Blood Cell % 0 /100 WBC (0); Platelet Count 221 Thou/mm3 (140-440); RDW Standard Deviation 40.6 fL (35.1-43.9); Red Blood Count 3.92 Miln/mm3 (4.50-5.90); White Blood Count 7.5 Thou/mm3 (3.8-10.6)
[2025-10-23 05:55] LABS: Partial Thromboplastin Time 45.1 Seconds (22.0-36.0)
[2025-10-23 06:03] LABS: Alanine Aminotransferase 11 U/L (10-49); Albumin, Serum 3.1 gm/dL (3.5-5.0); Albumin/Globulin Ratio 1.2 (1.2-2.2); Alkaline Phosphatase 73 U/L (46-116); Anion Gap 9 (7-16); Aspartate Amino Transferase 19 U/L (0-34); BUN/Creatinine Ratio 6 Ratio (12-20); Bilirubin,Total 0.7 mg/dL (0.3-1.2); Blood Urea Nitrogen 25 mg/dL (9-23); Calcium 8.0 mg/dL (8.3-10.6); Calcium (Corrected) 8.7 mg/dL (8.5-10.1); Carbon Dioxide 24.8 mMol/L (20.0-31.0); Chloride 106 mMol/L (98-107); Creatinine (Component) 4.0 mg/dL (0.6-1.3); Estimated Creatinine Clearance 24.2 mL/min (>60); Globulin 2.5 gm/dL (2.3-3.5); Glucose 162 mg/dL (74-106); Magnesium 1.6 mg/dL (1.6-2.6); Osmolality,Calculated 287 (275-295); Phosphorous 3.1 mg/dL (2.4-5.1); Potassium 3.9 mMol/L (3.4-5.1); Sodium 140 mMol/L (136-145); Total Protein 5.6 gm/dL (5.7-8.2); eGFR 17 See Note
[2025-10-23] MEDS: HEPARIN SOD INJ 5000 UNIT/ML VIAL 2000 UNIT IVP (06:13)
--- NOTE | 2025-10-23 07:58 | ESPR_ITS ---
<Statement entered by Damien Maldonado MD - 10/23/25 18:15> I saw and examined patient personally and supervised PGY 1 resident, Dr. Carver with formulating a management plan. I agree with the documentation with the exceptions as listed below. Patient denies any chest pain/pressure, palpitations and dizziness. Blood pressure this morning elevated at 197/101. Creatinine at 4.2. Started hydralazine 25 mg p.o. 3 times daily. Nephrology continues to monitor for GLORIA. Plan of care discussed with Attending Dr. Maryann Maldonado MD PGY 2 Disclaimer: This note was dictated by speech recognition. Minor errors in track moving machine operator may be present due to voice recognition software. Documentation for date of: 10/23/25 Subjective Subjective Interval history: Patient seen and examined at bedside; no acute events overnight. BP to 190s systolic in AM, added on hydralazine TID. Nephro said to keep him and monitor kidney function. Exam Vital Signs Temp Pulse Resp BP Pulse Ox O2 Del Method 97.5 F 78 18 172/98 H 99 Room Air 10/23/25 04:00 10/23/25 04:00 10/23/25 04:00 10/23/25 04:00 10/23/25 04:00 10/23/25 04:00 Narrative Exam General: Alert and oriented x3. In no acute distress. Eyes: Pupils are equal and reactive to light bilaterally. HEENT: Atraumatic, normocephalic. No JVD noted. Cardiovascular: Normal S1 and S2. Normal rate and regular rhythm. No murmurs appreciated. No peripheral pitting edema noted. No JVD noted. Respiratory: No respiratory distress. Lungs are clear to auscultation bilaterally. No wheezing or crackles heard. Abdomen: Soft, nontender, nondistended. Skin: No rash. Musculoskeletal: No gross injuries. Able to move all 4 extremities. Neuro: Alert and oriented x3. Sensation is intact throughout. Strength is 5/5 and symmetric. No focal neuro deficits. Psych: Normal affect and mood. Objective Labs 10/24/25 04:30 10/24/25 04:30 Labs: Laboratory Results - last 24 hr 10/22/25 10/22/25 10/22/25 09:57 11:00 19:48 WBC RBC Hgb Hct MCV MCH MCHC RDW Std Deviation Plt Count Neut % (Auto) Lymph % (Auto) [place] % (Auto) Eos % (Auto) Baso % (Auto) Neut # (Auto) Lymph # (Auto) [place] # (Auto) Eos # (Auto) Baso # (Auto) Immature Gran # (Auto) Absolute Nucleated RBC Immature Gran % Nucleated RBC % APTT 108.2 H* D 60.4 H D Sodium Potassium Chloride Carbon Dioxide Anion Gap BUN Creatinine Estim Creat Clear Calc eGFR BUN/Creatinine Ratio Glucose Calculated Osmolality Calcium Corrected Calcium Phosphorus Magnesium Total Bilirubin AST ALT Alkaline Phosphatase Total Protein Albumin Globulin Albumin/Globulin Ratio Ur Random Creatinine 60 Ur Random Sodium 73.8 Ur Random Potassium 19 Ur Random Chloride 67.0 10/23/25 05:24 WBC 7.5 RBC 3.92 L Hgb 11.8 L Hct 34.5 L MCV 88 MCH 30.1 MCHC 34.2 RDW Std Deviation 40.6 Plt Count 221 Neut % (Auto) 75 Lymph % (Auto) 17 [place] % (Auto) 6 Eos % (Auto) 1 Baso % (Auto) 0 Neut # (Auto) 5.7 Lymph # (Auto) 1.3 [place] # (Auto) 0.4 Eos # (Auto) 0.1 Baso # (Auto) 0.0 Immature Gran # (Auto) 0.03 H Absolute Nucleated RBC 0.00 Immature Gran % 0 Nucleated RBC % 0 APTT 45.1 H D Sodium 140 Potassium 3.9 Chloride 106 Carbon Dioxide 24.8 Anion Gap 9 BUN 25 H Creatinine 4.0 H Estim Creat Clear Calc 24.2 L eGFR 17 L BUN/Creatinine Ratio 6 L Glucose 162 H Calculated Osmolality 287 Calcium 8.0 L Corrected Calcium 8.7 Phosphorus 3.1 Magnesium 1.6 Total Bilirubin 0.7 AST 19 ALT 11 Alkaline Phosphatase 73 Total Protein 5.6 L Albumin 3.1 L Globulin 2.5 Albumin/Globulin Ratio 1.2 Ur Random Creatinine Ur Random Sodium Ur Random Potassium Ur Random Chloride Quality Measures Quality Measures VTE prophylaxis Assessment & Plan Assessment Current Active Medications: Generic Name Dose Route Start Last Admin Trade Name Freq PRN Reason Stop Dose Admin Acetaminophen 650 mg 10/19/25 21:12 Acetaminophen 325 Mg Tablet PO 11/18/25 21:11 Q6H PRN Fever >101.5 or pain 1-3 Aspirin 81 mg 10/21/25 09:00 10/22/25 08:32 Aspirin Ec 81 Mg Tabec PO 11/20/25 08:59 81 mg QDAY ALEXANDRA Administration Atorvastatin Calcium 40 mg 10/20/25 21:00 10/22/25 21:21 Atorvastatin Calcium 20 Mg Tablet PO 11/19/25 20:59 40 mg HS ALEXANDRA Administration Capsaicin 0 gm 10/20/25 09:45 10/23/25 05:15 Capsaicin Cr 60 Gm Tube TOP 11/19/25 09:44 Not Given TID ALEXANDRA Clopidogrel Bisulfate 75 mg 10/20/25 09:00 10/22/25 08:32 Clopidogrel Bisulfate 75 Mg Tablet PO 11/19/25 08:59 75 mg QDAY ALEXANDRA Administration Dextrose 25 ml 10/19/25 21:19 Dextrose 50%-Water Inj 50 Ml Syringe IV 11/18/25 21:18 Q15MIN PRN BG 50-70 responsive npo pt Dextrose 50 ml 10/19/25 21:19 Dextrose 50%-Water Inj 50 Ml Syringe IV 11/18/25 21:18 Q15MIN PRN BG <50 OR BG <70 & pt unresponsive Glucagon 1 mg 10/19/25 21:19 Glucagon Inj 1 Mg Vial IM Q15MIN PRN BG <70, and no IV access Hydralazine HCl 10 mg 10/22/25 05:05 10/22/25 05:27 Hydralazine Inj 20 Mg/Ml Vial IVP 11/19/25 04:07 10 mg Q4H PRN Administration Give if SBP >175 Heparin Sodium/Dextrose 25,000 unit in 250 mls @ 12.367 mls/hr 10/20/25 14:45 10/23/25 06:23 Heparin In D5w Ivpb IV 11/03/25 14:44 Not Given .[id number] [facility] Protocol 12 UNITS/KG/HR Lactated Ringer's 1,000 mls @ 100 mls/hr 10/21/25 14:48 10/22/25 23:15 Lactated Ringers IV 11/20/25 14:47 100 mls/hr .Q10H ALEXANDRA Administration Insulin Human Lispro 0 unit 10/20/25 07:30 10/23/25 07:30 Insulin Lispro (Admelog) 1 Unit/0.01 Ml Unit SC 11/19/25 07:29 Not Given AC [facility] Protocol Metoprolol Tartrate 50 mg 10/20/25 09:00 10/22/25 21:21 Metoprolol Tartrate 25 Mg Tablet PO 11/19/25 08:59 50 mg BID ALEXANDRA Administration Nifedipine 90 mg 10/20/25 09:00 10/22/25 08:33 Nifedipine Xl 30 Mg Tabcr PO 11/19/25 08:59 90 mg QDAY ALEXANDRA Administration Ondansetron HCl 4 mg 10/19/25 21:12 Ondansetron Inj 2 Mg/Ml Inj 2 Ml IVP 11/18/25 21:11 Q6H PRN NAUSEA OR VOMITING Protocol Pantoprazole Sodium 40 mg 10/20/25 09:00 10/22/25 08:33 Pantoprazole Inj 40 Mg Vial IVP 11/19/25 08:59 40 mg QDAY ALEXANDRA Administration Sennosides 1 tab 10/19/25 22:11 Senna/Docusate Sod 1 Tab Tablet PO 11/18/25 22:10 QDAY PRN CONSTIPATION Protocol Sitagliptin Phosphate 25 mg 10/21/25 09:00 10/22/25 08:32 Sitagliptin Phosphate 50 Mg Tablet PO 11/20/25 08:59 25 mg QDAY ALEXANDRA Administration Plan Patient is a 49-year-old male with a PMH of insulin-dependent type 2 diabetes mellitus, CAD status post CABG (2015), CKD, and hypertension who presented to [facility] ED on 10/19 from PCP for high creatinine. Patient is admitted for management of GLORIA on CKD and intractable vomiting. #ACS vs stable angina vs unstable angina vs pericarditis #History of CAD status post CABG (2015) #Newly diagnosed diastolic CHF Stage 1 (EF 60-65%) Patient has history of CAD with triple bypass surgery 2016 in [place]; has not followed up with cardiology. Aspirin and clopidogrel refilled by PCP. On 10-20-25, had 2 episodes of chest pain (see rapid notes for more details); EKG x2 showed no ST segment changes. Troponin was initially 0.516; last one was 2.238 at 13:30. Lipid panel shows TG 197, HDL 39. 10-21-25- Echo showed stage 1 diastolic disfunction with EF 60-65%; troponin today 3.67. Plan: Cardiology consulted, thank you for recommendations- start ASA, no cath due to GLORIA on CKD, hold off on heparin Heparin drip started as benefits outweigh risks Resume patient's home clopidogrel and aspirin Cardiac diet modification Atorvastatin 40, metoprolol 50 BID, capsaicin cream (for chest pain) Troponin peaked #GLORIA on CKD stage IIIb, likely prerenal #Intractable vomiting 2/ #Cannabis hyperemesis syndrome History of CKD as identified from his previous labs, stage IIIb back in January 2025. The patient does not follow with a employment law attorney. The patient has been using marijuana daily for at least 10 years and has had episodes of vomiting for at least a year, with recent worsening over the past month. eGFR on 01/23/2025- 43 On admission, Creatinine 4.6, Lipase 124 Gallbladder ultrasound on 10/19 unremarkable Renal ultrasound ordered, pending CT abdomen/pelvis ordered to rule out any pancreatitis given elevated lipase and vomiting, pending Urine electrolytes, urine protein, and urine creatinine ordered, pending Plan: 10/22: Discussed with nephrology: Creatinine is not improving but no indication for hemodialysis at this time. May need dialysis if cardiology wants to pursue with cardiac catheterization Received 2 L NS and 1 L LR in the ED Received 1L NS today Placed on 100mL/hr LR per nephro recs Nephrology consulted, thank you for recommendations Strict ins and outs Avoid nephrotoxic drugs, renally dose medications Renal diet modification Counseled patient on marijuana consumption decrease/cessation #History of hypertension #Hypertensive urgency? versus #Hypertensive emergency? Blood pressure max recorded on admission noted to be 201/103; BP today is 120/64. Creatinine on admission 4.6; today is 4.2 Plan: Metoprolol tartrate 50 BID Nifedipine 90 mg daily Hydralazine 10 mg IVP every 4 hours as needed if SBP >180 #Leukocytosis Patient noted to have WBC of 16.4 on admission. WBC 10/21/25 were 11.1. Plan: Continue to monitor Manage underlying vomiting with antiemetics #History of Insulin-dependent T2DM #Diabetic nephropathy History of insulin-dependent type 2 diabetes mellitus. Per , patient stumbles and has multiple foot sores. Has not yet been referred to any entry level electrical engineer and has not had any follow-up regarding his feet in an outpatient basis by his PCP. A1c 01/22/2025 13.4; A1c today 7.8 Plan: Sliding scale insulin step I Bedside glucose checks ACHS Carbohydrate consistent diet modification Wound care referral #History of acid reflux Patient takes famotidine at home Plan: Protonix 40 mg daily DVT Prophylaxis: Heparin GI Prophylaxis: Protonix Bowel: Senokot PRN Diet: Renal, cardiac, carbohydrate consistent [place]oney: N/A Lines: PIV Antibiotics: N/A This case was discussed with my attending physician, Dr. Lorenzo, and senior resident, Dr. Maldonado. Asaf Carver, PGY1 Attending Provider Attestation/Addendum 49-year-old male patient with diabetes mellitus, uncontrolled hypertension, chronic kidney disease, coronary artery disease status post CABG was admitted for possible ACS. Patient has uptrending troponin level heparin drip was started. Cardiology consult requested. The patient is on GDMT. Continue to monitor kidney functions. Continue cardiac monitoring. Symptomatic treatment as indicated. Follow-up with cardiology. I discussed with and supervised the resident physician who took care of this patient. I agree with the assessment and plan as above.
[2025-10-23] MEDS: METOPROLOL TARTRATE 25 MG TABLET 50 MG PO ×2 (08:20→20:49)
[2025-10-23] MEDS: NIFEdipine XL 30 MG TABCR 90 MG PO (08:20)
[2025-10-23] MEDS: CLOPIDOGREL BISULFATE 75 MG TABLET PO (08:20)
[2025-10-23] MEDS: ASPIRIN EC 81 MG TABEC PO (08:20)
[2025-10-23] MEDS: hydrALAZINE INJ 20 MG/ML VIAL 10 MG IVP (08:21)
[2025-10-23] MEDS: RINGERS LACTATED 1000 ML 1,000 ML 100 ML IV (09:38)
--- NOTE | 2025-10-23 10:24 | PD.RESPRO ---
Documentation for date of: 10/23/25 Subjective Subjective Interval history: History of present illness: This patient is a 49-year-old male with a history of insulin-dependent type 2 days mellitus, CAD status post CABG (2016), CKD, and hypertension who presented to [facility] ED on 10/19 from his PCPs office after being told that his creatinine was very high. Patient is admitted for management of GLORIA on CKD and intractable vomiting. According to the patient, he has had issues with vomiting for at least a year, however he has had an acute worsening over the past month, however the patient is not exactly sure as he and his partner at bedside are not the best historians. The patient states that since about a month ago, he has been having increasing frequency of his vomiting and vomits may be 3 to 4 days out of the week on average, and when he does vomit, he will vomit may be up to 10 times a day. The patient states that nothing really seems to help it except for taking marijuana, for which he has been taking daily for over 10 years. Because of his excessive vomiting, the patient has been on unable to keep down most food and fluids, and additionally he has been unable to take some of his medications throughout the week as result of the vomiting. The patient's PCP has been following the patient's CKD and has been noticing that it has been going up. According to the patient, the patient's PCP was a bit concerned about the patient's Januvia as a cause of the patient's worsening renal function, however the patient has been taking Januvia since his CABG back in 2015. On the day of the admission, the patient's PCP noticed continued worsening of the patient's renal function labs, and told the patient to seek care at [facility] ED. The patient does not follow any electronic health records specialist and has not followed up with any angle shearer for his CAD status post CABG. Patient denies any fevers, chills, chest pain, shortness of breath, abdominal pain, dysuria, and headaches. ED course: Initial vitals significant for blood pressure of 148/92 and heart rate of 113. Initial labs significant for WBC 16.4, BUN 34, creatinine 4.6, lipase 124, and urinalysis positive for 3+ protein, 2+ glucose, and 1+ blood. Gallbladder ultrasound unremarkable. Patient was given 2 L of NS, Zofran, and Protonix in ED. Current Medication(s): Pending med rec Allergies (w/ Reactions): NKDA Family History: Noncontributory, mother has hypertension Patient was admitted for management of GLORIA on CKD and intractable vomiting. Nephrology consulted for GLORIA on CKD. 10/20/25: Patient seen and assessed at bedside. Had rapid response this morning due to chest pressure and nausea, reports that pain improved after given nitroglycerin. S/p 2L IVF and LR maintenance fluids overnight. Creatinine 4.0 from 4.6, improving. GFR 17. 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 Urine anion gap elevated, started on sodium bicarb 325 mg BID. Continue fluids as patient is likely azotemic from intractable vomiting. Restart Januvia 25 mg daily for glucose and renal protection. 10/21/25: Patient seen and assessed at bedside. UOP 1 L. BUN 42, creatinine 4.2, GFR 15. Glucose 166. Magnesium 1.5, repleted. Continue Januvia and sodium bicarb tablets. 10/22/25: Patient seen and assessed at bedside. Maintaining good urine output. Creatinine increased to 4.3. Creatinine is not improving but no indication for hemodialysis at this time. May need dialysis if cardiology wants to pursue with cardiac catheterization. 10/23/25: Patient seen and assessed at bedside. UOP 1.2L. Creatinine 4.0 (from 4.3), improving. Magnesium 1.6, repleted. Continue IV LR maintenance, Januvia, and sodium bicarb tablets. Will continue to monitor. Exam Vital Signs Temp Pulse Resp BP Pulse Ox O2 Del Method 96.9 F 80 18 169/81 H 99 Room Air 10/23/25 08:00 10/23/25 09:37 10/23/25 08:13 10/23/25 09:37 10/23/25 08:00 10/23/25 08:00 Narrative Exam Physical Exam General: Awake and in no acute distress. Conversational and non-toxic appearing. HEENT: Normocephalic, atraumatic, mucous membranes moist. Heart: Regular rate and rhythm, normal S1 and S2, no murmurs appreciated. Lungs: Clear to auscultation with no wheezing or crackles. Abdomen: Soft, nondistended, nontender, positive bowel sounds. No guarding or rebound tenderness. Neurologic: Alert and oriented x3, no gross neurological deficit, and patient able to move all 4 extremities. Extremities: Trace edema in lower extremities. Skin: Multiple round scars on legs. No rash or ecchymoses. Objective Labs 10/24/25 04:30 10/24/25 04:30 Labs: Laboratory Results - last 24 hr 10/22/25 10/22/25 10/22/25 09:57 11:00 19:48 WBC RBC Hgb Hct MCV MCH MCHC RDW Std Deviation Plt Count Neut % (Auto) Lymph % (Auto) [place] % (Auto) Eos % (Auto) Baso % (Auto) Neut # (Auto) Lymph # (Auto) [place] # (Auto) Eos # (Auto) Baso # (Auto) Immature Gran # (Auto) Absolute Nucleated RBC Immature Gran % Nucleated RBC % APTT 108.2 H* D 60.4 H D Sodium Potassium Chloride Carbon Dioxide Anion Gap BUN Creatinine Estim Creat Clear Calc eGFR BUN/Creatinine Ratio Glucose Calculated Osmolality Calcium Corrected Calcium Phosphorus Magnesium Total Bilirubin AST ALT Alkaline Phosphatase Total Protein Albumin Globulin Albumin/Globulin Ratio Ur Random Creatinine 60 Ur Random Sodium 73.8 Ur Random Potassium 19 Ur Random Chloride 67.0 10/23/25 05:24 WBC 7.5 RBC 3.92 L Hgb 11.8 L Hct 34.5 L MCV 88 MCH 30.1 MCHC 34.2 RDW Std Deviation 40.6 Plt Count 221 Neut % (Auto) 75 Lymph % (Auto) 17 [place] % (Auto) 6 Eos % (Auto) 1 Baso % (Auto) 0 Neut # (Auto) 5.7 Lymph # (Auto) 1.3 [place] # (Auto) 0.4 Eos # (Auto) 0.1 Baso # (Auto) 0.0 Immature Gran # (Auto) 0.03 H Absolute Nucleated RBC 0.00 Immature Gran % 0 Nucleated RBC % 0 APTT 45.1 H D Sodium 140 Potassium 3.9 Chloride 106 Carbon Dioxide 24.8 Anion Gap 9 BUN 25 H Creatinine 4.0 H Estim Creat Clear Calc 24.2 L eGFR 17 L BUN/Creatinine Ratio 6 L Glucose 162 H Calculated Osmolality 287 Calcium 8.0 L Corrected Calcium 8.7 Phosphorus 3.1 Magnesium 1.6 Total Bilirubin 0.7 AST 19 ALT 11 Alkaline Phosphatase 73 Total Protein 5.6 L Albumin 3.1 L Globulin 2.5 Albumin/Globulin Ratio 1.2 Ur Random Creatinine Ur Random Sodium Ur Random Potassium Ur Random Chloride Quality Measures Quality Measures VTE prophylaxis Assessment & Plan Assessment Current Active Medications: Generic Name Dose Route Start Last Admin Trade Name Freq PRN Reason Stop Dose Admin Acetaminophen 650 mg 10/19/25 21:12 Acetaminophen 325 Mg Tablet PO 11/18/25 21:11 Q6H PRN Fever >101.5 or pain 1-3 Aspirin 81 mg 10/21/25 09:00 10/23/25 08:20 Aspirin Ec 81 Mg Tabec PO 11/20/25 08:59 81 mg QDAY ALEXANDRA Administration Atorvastatin Calcium 40 mg 10/20/25 21:00 10/22/25 21:21 Atorvastatin Calcium 20 Mg Tablet PO 11/19/25 20:59 40 mg HS ALEXANDRA Administration Capsaicin 0 gm 10/20/25 09:45 10/23/25 05:15 Capsaicin Cr 60 Gm Tube TOP 11/19/25 09:44 Not Given TID ALEXANDRA Clopidogrel Bisulfate 75 mg 10/20/25 09:00 10/23/25 08:20 Clopidogrel Bisulfate 75 Mg Tablet PO 11/19/25 08:59 75 mg QDAY ALEXANDRA Administration Dextrose 25 ml 10/19/25 21:19 Dextrose 50%-Water Inj 50 Ml Syringe IV 11/18/25 21:18 Q15MIN PRN BG 50-70 responsive npo pt Dextrose 50 ml 10/19/25 21:19 Dextrose 50%-Water Inj 50 Ml Syringe IV 11/18/25 21:18 Q15MIN PRN BG <50 OR BG <70 & pt unresponsive Glucagon 1 mg 10/19/25 21:19 Glucagon Inj 1 Mg Vial IM Q15MIN PRN BG <70, and no IV access Hydralazine HCl 10 mg 10/22/25 05:05 10/23/25 08:21 Hydralazine Inj 20 Mg/Ml Vial IVP 11/19/25 04:07 10 mg Q4H PRN Administration Give if SBP >175 Hydralazine HCl 25 mg 10/23/25 09:00 10/23/25 09:37 Hydralazine Hcl 25 Mg Tablet PO 11/22/25 08:59 25 mg TID ALEXANRDA Administration Heparin Sodium/Dextrose 25,000 unit in 250 mls @ 12.367 mls/hr 10/20/25 14:45 10/23/25 06:23 Heparin In D5w Ivpb IV 11/03/25 14:44 Not Given .[id number] ALEXANDRA Protocol 12 UNITS/KG/HR Lactated Ringer's 1,000 mls @ 100 mls/hr 10/21/25 14:48 10/23/25 09:38 Lactated Ringers IV 11/20/25 14:47 100 mls/hr .Q10H ALEXANDRA Administration Insulin Human Lispro 0 unit 10/20/25 07:30 10/23/25 07:30 Insulin Lispro (Admelog) 1 Unit/0.01 Ml Unit SC 11/19/25 07:29 Not Given AC ALEXANDRA Protocol Metoprolol Tartrate 50 mg 10/20/25 09:00 10/23/25 08:20 Metoprolol Tartrate 25 Mg Tablet PO 11/19/25 08:59 50 mg BID ALEXANDRA Administration Nifedipine 90 mg 10/20/25 09:00 10/23/25 08:20 Nifedipine Xl 30 Mg Tabcr PO 11/19/25 08:59 90 mg QDAY ALEXANDRA Administration Ondansetron HCl 4 mg 10/19/25 21:12 Ondansetron Inj 2 Mg/Ml Inj 2 Ml IVP 11/18/25 21:11 Q6H PRN NAUSEA OR VOMITING Protocol Pantoprazole Sodium 40 mg 10/20/25 09:00 10/23/25 08:21 Pantoprazole Inj 40 Mg Vial IVP 11/19/25 08:59 40 mg QDAY ALEXANDRA Administration Sennosides 1 tab 10/19/25 22:11 Senna/Docusate Sod 1 Tab Tablet PO 11/18/25 22:10 QDAY PRN CONSTIPATION Protocol Sitagliptin Phosphate 25 mg 10/21/25 09:00 10/23/25 08:20 Sitagliptin Phosphate 50 Mg Tablet PO 11/20/25 08:59 25 mg QDAY ALEXANDRA Administration Plan Patient is a 49-year-old male with a history of insulin-dependent type 2 days mellitus, CAD status post CABG (2015), CKD, and hypertension who presented to [facility] ED on 10/19 from his PCPs office after being told that his creatinine was very high. Patient is admitted for management of GLORIA on CKD and intractable vomiting. Nephrology consulted for GLORIA on CKD. #GLORIA on CKD stage IIIb, likely prerenal 2/2 intractable vomiting - Presents with worsening intractable vomiting for the past month likely secondary to marijuana use for at least 10 years. Presented previously in January 2023 also for same complaint, also presented with GLORIA. - Creatinine 4.6 -> 4.0 -> 4.2 (baseline 1.9-2.2 in 01/2025). - eGFR 15 -> 17 (baseline 43 in 01/2025) - Renal ultrasound showed mild bilateral renal scar formation with cortical thinning, no hydronephrosis - UA showed 3+ protein, 2+ glucose, trace ketones, 1+ blood, rare bacteria. A1c 7.8. - Urine creatinine 84, urine protein greater than 250 - Likely prerenal given the patient's poor oral consumption from his worsening vomiting, which is likely cannabis hyperemesis syndrome. Plan: - Continue IV LR maintenance. Will hold off on dialysis as patient still has good UOP and creatinine improving. - Strict ins and outs - Avoid nephrotoxic drugs - Renally dose medications - Renal diet modification #Diabetic nephropathy iso uncontrolled IDDM2 - Home medications include Januvia 100 mg daily, started 1 year ago by PCP - UA showed 3+ protein, 2+ glucose, trace ketones, 1+ blood, rare bacteria. A1c 7.8. - GFR 17 (baseline 43 in 01/2025) - Likely contributing to CKD IIIB Plan: - Insulin per primary team - Januvia at 25 mg daily #RTA type 4 - Potassium 4.1 on admission but previously as high as 5.8 in January 2025. - Bicarb 23.7 -> 20.9 - Positive urine anion gap (29.6), possibly RTA type 4 in setting of diabetes. Plan: - Sodium bicarb tablets 325 BID - Continue to monitor renal panel #Hypomagnesemia - Magnesium 1.5 Plan: - Replete accordingly - Keep Mg >2 #History of hypertension #Hypertensive urgency versus #Hypertensive emergency? #Leukocytosis #History of CAD status post CABG (2016) #History of acid reflux #Insulin-dependent type 2 diabetes mellitus #Marijuana use #Intractable vomiting 2/2 #Cannabis hyperemesis syndrome - Defer to primary team for management Thank you for your consultation, please do not hesitate to reach out if you have any question or concern Patient plan of care was discussed with the attending physician, Dr. Cabral. Joy Stone DO, PGY-1 Attending Provider Attestation/Addendum Patient seen and examined with resident physician Dr. Stone. Note reviewed, agree with findings and recommendations. seems to have ATN- fluctuations in BP underlying D. Nephropathy. will plan for HD on mondal if no improvement.
[2025-10-23] MEDS: Magnesium Sulfate 2 GM Ivpb 2 GM/50 ML BAG IV (12:06)
[2025-10-23 13:21] LABS: Partial Thromboplastin Time 72.0 Seconds (22.0-36.0)
[2025-10-23] MEDS: Heparin/D5w 25K 250 ML Ivpb 25,000 UNIT/250 ML BAG 12.367 UNIT IV (13:32)
[2025-10-23] MEDS: INSULIN LISPRO (AdmeLOG) 1 UNIT/0.01 ML UNIT SC (16:35)
[2025-10-23] MEDS: ATORVASTATIN CALCIUM 20 MG TABLET 40 MG PO (20:50)
[2025-10-24] VITALS (12 sets, daily range): BP systolic 145–175; BP diastolic 72–87; PULSE 71–94; RESP 16–22; TEMP 36.1–36.7; O2SAT 95–99
[2025-10-24 05:53] LABS: Basophils # (Auto) 0.0 Thou/mm3 (0.0-0.2); Basophils % (Auto) 0 % (0-2.5); Eosinophils # (Auto) 0.1 Thou/mm3 (0.0-0.5); Eosinophils % (Auto) 2 % (0-10); Hematocrit 36.4 % (41.0-53.0); Hemoglobin 12.9 g/dL (13.5-16.0); Immature Granulocytes Auto 0.02 Thou/mm3 (0.00-0.00); Lymphocytes # (Auto) 1.7 Thou/mm3 (1.0-4.8); Lymphocytes % (Auto) 22 % (10-50); Mean Corpuscular HGB Conc 35.4 g/dl (31.0-37.0); Mean Corpuscular Hemoglobin 30.7 pg (25.0-35.0); Mean Corpuscular Volume 87 fL (80-100); Monocytes # (Auto) 0.6 Thou/mm3 (0.0-0.8); Monocytes % (Auto) 7 % (0-12); Neutrophils # (Auto) 5.4 Thou/mm3 (1.8-7.7); Neutrophils % (Auto) 69 % (37-80); Nucleated Red Blood Cell # 0.00 Thou/mm3 (0.00-0.00); Nucleated Red Blood Cell % 0 /100 WBC (0); Platelet Count 205 Thou/mm3 (140-440); RDW Standard Deviation 39.9 fL (35.1-43.9); Red Blood Count 4.20 Miln/mm3 (4.50-5.90); White Blood Count 7.8 Thou/mm3 (3.8-10.6)
[2025-10-24 06:12] LABS: Alanine Aminotransferase 20 U/L (10-49); Albumin, Serum 3.2 gm/dL (3.5-5.0); Albumin/Globulin Ratio 1.3 (1.2-2.2); Alkaline Phosphatase 73 U/L (46-116); Anion Gap 10 (7-16); Aspartate Amino Transferase 27 U/L (0-34); BUN/Creatinine Ratio 7 Ratio (12-20); Bilirubin,Total 0.5 mg/dL (0.3-1.2); Blood Urea Nitrogen 27 mg/dL (9-23); Calcium 8.0 mg/dL (8.3-10.6); Calcium (Corrected) 8.6 mg/dL (8.5-10.1); Carbon Dioxide 24.6 mMol/L (20.0-31.0); Chloride 105 mMol/L (98-107); Creatinine (Component) 4.0 mg/dL (0.6-1.3); Estimated Creatinine Clearance 24.2 mL/min (>60); Globulin 2.5 gm/dL (2.3-3.5); Glucose 176 mg/dL (74-106); Magnesium 2.1 mg/dL (1.6-2.6); Osmolality,Calculated 288 (275-295); Phosphorous 3.0 mg/dL (2.4-5.1); Potassium 3.6 mMol/L (3.4-5.1); Sodium 140 mMol/L (136-145); Total Protein 5.7 gm/dL (5.7-8.2); eGFR 17 See Note
[2025-10-24 06:18] LABS: Partial Thromboplastin Time 60.3 Seconds (22.0-36.0)
[2025-10-24] MEDS: NIFEdipine XL 30 MG TABCR 90 MG PO (08:50)
[2025-10-24] MEDS: CLOPIDOGREL BISULFATE 75 MG TABLET PO (08:50)
[2025-10-24] MEDS: ASPIRIN EC 81 MG TABEC PO (08:50)
[2025-10-24] MEDS: METOPROLOL TARTRATE 25 MG TABLET 50 MG PO ×2 (08:51→21:14)
--- NOTE | 2025-10-24 13:18 | ESPR_ITS ---
Documentation for date of: 10/24/25 Subjective Subjective Interval history: Patient seen and examined at bedside; no acute events overnight. As creatinine is still 4, Dr. Cabral will start patient on temporary dialysis tomorrow. Exam Vital Signs Temp Pulse Resp BP Pulse Ox O2 Del Method 96.9 F 80 19 156/82 H 98 Room Air 10/24/25 08:00 10/24/25 08:51 10/24/25 08:00 10/24/25 08:51 10/24/25 08:00 10/24/25 08:00 Narrative Exam General: Alert and oriented x3. In no acute distress. Eyes: Pupils are equal and reactive to light bilaterally. HEENT: Atraumatic, normocephalic. No JVD noted. Cardiovascular: Normal S1 and S2. Normal rate and regular rhythm. No murmurs appreciated. No peripheral pitting edema noted. No JVD noted. Respiratory: No respiratory distress. Lungs are clear to auscultation bilaterally. No wheezing or crackles heard. Abdomen: Soft, nontender, nondistended. Skin: No rash. Musculoskeletal: No gross injuries. Able to move all 4 extremities. Neuro: Alert and oriented x3. Sensation is intact throughout. Strength is 5/5 and symmetric. No focal neuro deficits. Psych: Normal affect and mood. Objective Labs 10/25/25 04:38 10/25/25 04:38 Labs: Laboratory Results - last 24 hr 10/23/25 10/24/25 12:09 04:30 WBC 7.8 RBC 4.20 L Hgb 12.9 L Hct 36.4 L MCV 87 MCH 30.7 MCHC 35.4 RDW Std Deviation 39.9 Plt Count 205 Neut % (Auto) 69 Lymph % (Auto) 22 [place] % (Auto) 7 Eos % (Auto) 2 Baso % (Auto) 0 Neut # (Auto) 5.4 Lymph # (Auto) 1.7 [place] # (Auto) 0.6 Eos # (Auto) 0.1 Baso # (Auto) 0.0 Immature Gran # (Auto) 0.02 H Absolute Nucleated RBC 0.00 Immature Gran % 0 Nucleated RBC % 0 APTT 72.0 H D 60.3 H D Sodium 140 Potassium 3.6 Chloride 105 Carbon Dioxide 24.6 Anion Gap 10 BUN 27 H Creatinine 4.0 H Estim Creat Clear Calc 24.2 L eGFR 17 L BUN/Creatinine Ratio 7 L Glucose 176 H Calculated Osmolality 288 Calcium 8.0 L Corrected Calcium 8.6 Phosphorus 3.0 Magnesium 2.1 Total Bilirubin 0.5 AST 27 ALT 20 Alkaline Phosphatase 73 Total Protein 5.7 Albumin 3.2 L Globulin 2.5 Albumin/Globulin Ratio 1.3 Quality Measures Quality Measures VTE prophylaxis Assessment & Plan Assessment Current Active Medications: Generic Name Dose Route Start Last Admin Trade Name Freq PRN Reason Stop Dose Admin Acetaminophen 650 mg 10/19/25 21:12 Acetaminophen 325 Mg Tablet PO 11/18/25 21:11 Q6H PRN Fever >101.5 or pain 1-3 Aspirin 81 mg 10/21/25 09:00 10/24/25 08:50 Aspirin Ec 81 Mg Tabec PO 11/20/25 08:59 81 mg QDAY ALEXANDRA Administration Atorvastatin Calcium 40 mg 10/20/25 21:00 10/23/25 20:50 Atorvastatin Calcium 20 Mg Tablet PO 11/19/25 20:59 40 mg HS ALEXANDRA Administration Capsaicin 0 gm 10/20/25 09:45 10/24/25 05:26 Capsaicin Cr 60 Gm Tube TOP 11/19/25 09:44 Not Given TID ALEXANDRA Clopidogrel Bisulfate 75 mg 10/20/25 09:00 10/24/25 08:50 Clopidogrel Bisulfate 75 Mg Tablet PO 11/19/25 08:59 75 mg QDAY ALEXANDRA Administration Dextrose 25 ml 10/19/25 21:19 Dextrose 50%-Water Inj 50 Ml Syringe IV 11/18/25 21:18 Q15MIN PRN BG 50-70 responsive npo pt Dextrose 50 ml 10/19/25 21:19 Dextrose 50%-Water Inj 50 Ml Syringe IV 11/18/25 21:18 Q15MIN PRN BG <50 OR BG <70 & pt unresponsive Glucagon 1 mg 10/19/25 21:19 Glucagon Inj 1 Mg Vial IM Q15MIN PRN BG <70, and no IV access Hydralazine HCl 10 mg 10/22/25 05:05 10/23/25 08:21 Hydralazine Inj 20 Mg/Ml Vial IVP 11/19/25 04:07 10 mg Q4H PRN Administration Give if SBP >175 Hydralazine HCl 25 mg 10/23/25 09:00 10/24/25 05:25 Hydralazine Hcl 25 Mg Tablet PO 11/22/25 08:59 25 mg TID ALEXANDRA Administration Insulin Human Lispro 0 unit 10/20/25 07:30 10/24/25 12:17 Insulin Lispro (Admelog) 1 Unit/0.01 Ml Unit SC 11/19/25 07:29 Not Given AC ALEXANDRA Protocol Metoprolol Tartrate 50 mg 10/20/25 09:00 10/24/25 08:51 Metoprolol Tartrate 25 Mg Tablet PO 11/19/25 08:59 50 mg BID ALEXANDRA Administration Nifedipine 90 mg 10/20/25 09:00 10/24/25 08:50 Nifedipine Xl 30 Mg Tabcr PO 11/19/25 08:59 90 mg QDAY ALEXANDRA Administration Ondansetron HCl 4 mg 10/19/25 21:12 Ondansetron Inj 2 Mg/Ml Inj 2 Ml IVP 11/18/25 21:11 Q6H PRN NAUSEA OR VOMITING Protocol Pantoprazole Sodium 40 mg 10/20/25 09:00 10/24/25 08:50 Pantoprazole Inj 40 Mg Vial IVP 11/19/25 08:59 40 mg QDAY ALEXANDRA Administration Sennosides 1 tab 10/19/25 22:11 Senna/Docusate Sod 1 Tab Tablet PO 11/18/25 22:10 QDAY PRN CONSTIPATION Protocol Sitagliptin Phosphate 25 mg 10/21/25 09:00 10/24/25 08:50 Sitagliptin Phosphate 50 Mg Tablet PO 11/20/25 08:59 25 mg QDAY ALEXANDRA Administration Plan Patient is a 49-year-old male with a PMH of insulin-dependent type 2 diabetes mellitus, CAD status post CABG (2015), CKD, and hypertension who presented to [facility] ED on 10/19 from PCP for high creatinine. Patient is admitted for management of GLORIA on CKD and intractable vomiting. #ACS vs stable angina vs unstable angina vs pericarditis #History of CAD status post CABG (2015) #Newly diagnosed diastolic CHF Stage 1 (EF 60-65%) Patient has history of CAD with triple bypass surgery 2016 in [place]; has not followed up with cardiology. Aspirin and clopidogrel refilled by PCP. On 10-20-25, had 2 episodes of chest pain (see rapid notes for more details); EKG x2 showed no ST segment changes. Troponin was initially 0.516; last one was 2.238 at 13:30. Lipid panel shows TG 197, HDL 39. 10-21-25- Echo showed stage 1 diastolic disfunction with EF 60-65%; troponin today 3.67. Plan: Cardiology consulted, thank you for recommendations- start ASA, no cath due to GLORIA on CKD, hold off on heparin Heparin drip held as it is past 48 hours Resume patient's home clopidogrel and aspirin Cardiac diet modification Atorvastatin 40, metoprolol 50 BID, capsaicin cream (for chest pain) Troponin peaked #GLORIA on CKD stage IIIb, likely prerenal #Intractable vomiting (resolved) 12/13 #Cannabis hyperemesis syndrome History of CKD as identified from his previous labs, stage IIIb back in January 2025. The patient does not follow with a services coordinator. The patient has been using marijuana daily for at least 10 years and has had episodes of vomiting for at least a year, with recent worsening over the past month. eGFR on 01/23/2025- 43 On admission, Creatinine 4.6, Lipase 124 Gallbladder ultrasound on 10/19 unremarkable Renal ultrasound ordered, pending CT abdomen/pelvis ordered to rule out any pancreatitis given elevated lipase and vomiting, pending Urine electrolytes, urine protein, and urine creatinine ordered, pending Plan: 10/22: Discussed with nephrology: Creatinine is not improving but no indication for hemodialysis at this time. May need dialysis if cardiology wants to pursue with cardiac catheterization 10/24: Discussed with nephrology, will place temporary dialysis catheter as creatinine is not measurably improving (4.0 today) Received 2 L NS and 1 L LR in the ED Received 1L NS today Placed on 100mL/hr LR per nephro recs Nephrology consulted, thank you for recommendations Strict ins and outs Avoid nephrotoxic drugs, renally dose medications Renal diet modification Counseled patient on marijuana consumption decrease/cessation #History of hypertension #Hypertensive urgency? versus #Hypertensive emergency? Blood pressure max recorded on admission noted to be 201/103; BP today is 120/64. Creatinine on admission 4.6; today is 4.2 Plan: Metoprolol tartrate 50 BID Nifedipine 90 mg daily Hydralazine 10 mg IVP every 4 hours as needed if SBP >180 #Leukocytosis Patient noted to have WBC of 16.4 on admission. WBC 10/21/25 were 11.1. Plan: Continue to monitor Manage underlying vomiting with antiemetics #History of Insulin-dependent T2DM #Diabetic nephropathy History of insulin-dependent type 2 diabetes mellitus. Per , patient stumbles and has multiple foot sores. Has not yet been referred to any door captain and has not had any follow-up regarding his feet in an outpatient basis by his PCP. A1c 01/22/2025 13.4; A1c today 7.8 Plan: Sliding scale insulin step I Bedside glucose checks ACHS Carbohydrate consistent diet modification Wound care referral #History of acid reflux Patient takes famotidine at home Plan: Protonix 40 mg daily DVT Prophylaxis: Heparin GI Prophylaxis: Protonix Bowel: Senokot PRN Diet: Renal, cardiac, carbohydrate consistent [place]: N/A Lines: PIV Antibiotics: N/A This case was discussed with my attending physician, Dr. Lorenzo, and senior resident, Dr. Malin. Asaf Carver, PGY1 Senior Resident Attestation: I discussed with and supervised the internal combustion engine subassembler physician involved in the care of this patient. I personally saw and examined the patient and discussed the assessment and plan with the entire medicine team, including my attending. I agree with the assessment and plan as documented above. Barney Malin MD PGY3 Internal Medicine Attending Provider Attestation/Addendum Patient seen and examined with housestaff. He feels fine. He has good urine output. Creatinine has not improved. The plan is to continue IV hydration since he makes good amount of urine )per Dr. Cabral) I discussed with and supervised the resident physician who took care of this patient. I agree with the assessment and plan as above.
--- NOTE | 2025-10-24 16:05 | PC.SS ---
Rounding: GLORIA worsening, Marianna to put in temp HD cath for pt tomorrow.
--- NOTE | 2025-10-24 16:32 | PD.NEPHPROG ---
Documentation for date of: 10/24/25 Subjective Subjective Interval history: Interval history: History of present illness: This patient is a 49-year-old male with a history of insulin-dependent type 2 days mellitus, CAD status post CABG (2015), CKD, and hypertension who presented to [facility] ED on 10/19 from his PCPs office after being told that his creatinine was very high. Patient is admitted for management of GLORIA on CKD and intractable vomiting. According to the patient, he has had issues with vomiting for at least a year, however he has had an acute worsening over the past month, however the patient is not exactly sure as he and his partner at bedside are not the best historians. The patient states that since about a month ago, he has been having increasing frequency of his vomiting and vomits may be 3 to 4 days out of the week on average, and when he does vomit, he will vomit may be up to 10 times a day. The patient states that nothing really seems to help it except for taking marijuana, for which he has been taking daily for over 10 years. Because of his excessive vomiting, the patient has been on unable to keep down most food and fluids, and additionally he has been unable to take some of his medications throughout the week as result of the vomiting. The patient's PCP has been following the patient's CKD and has been noticing that it has been going up. According to the patient, the patient's PCP was a bit concerned about the patient's Januvia as a cause of the patient's worsening renal function, however the patient has been taking Januvia since his CABG back in 2015. On the day of the admission, the patient's PCP noticed continued worsening of the patient's renal function labs, and told the patient to seek care at [facility] ED. The patient does not follow any airline hostess and has not followed up with any hedge fund principal for his CAD status post CABG. Patient denies any fevers, chills, chest pain, shortness of breath, abdominal pain, dysuria, and headaches. ED course: Initial vitals significant for blood pressure of 148/92 and heart rate of 113. Initial labs significant for WBC 16.4, BUN 34, creatinine 4.6, lipase 124, and urinalysis positive for 3+ protein, 2+ glucose, and 1+ blood. Gallbladder ultrasound unremarkable. Patient was given 2 L of NS, Zofran, and Protonix in ED. Current Medication(s): Pending med rec Allergies (w/ Reactions): NKDA Family History: Noncontributory, mother has hypertension Patient was admitted for management of GLORIA on CKD and intractable vomiting. Nephrology consulted for GLORIA on CKD. 10/20/25: Patient seen and assessed at bedside. Had rapid response this morning due to chest pressure and nausea, reports that pain improved after given nitroglycerin. S/p 2L IVF and LR maintenance fluids overnight. Creatinine 4.0 from 4.6, improving. GFR 17. 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 Urine anion gap elevated, started on sodium bicarb 325 mg BID. Continue fluids as patient is likely azotemic from intractable vomiting. Restart Januvia 25 mg daily for glucose and renal protection. 10/22/25: Patient seen and assessed at bedside. UOP 1 L. BUN 42, creatinine 4.0, GFR 17. Glucose 166. Magnesium 1.5, repleted. Continue Januvia and sodium bicarb tablets. No need for dialysis. If creatinine stable tomorrow can be discharged with outpatient follow-up. Review of Systems Review of Systems Narrative Review of Systems: Denies any chest pain, shortness of breath. Exam Vital Signs Temp Pulse Resp BP Pulse Ox O2 Del Method 36.1 C 94 20 145/76 H 98 Room Air 10/24/25 20:00 10/24/25 21:14 10/24/25 20:00 10/24/25 21:14 10/24/25 20:00 10/24/25 20:00 Narrative Exam Physical Exam General: Awake and in no acute distress. Conversational and non-toxic appearing. HEENT: Normocephalic, atraumatic, mucous membranes moist. Heart: Regular rate and rhythm, normal S1 and S2, no murmurs appreciated. Lungs: Clear to auscultation with no wheezing or crackles. Abdomen: Soft, nondistended, nontender, positive bowel sounds. No guarding or rebound tenderness. Neurologic: Alert and oriented x3, no gross neurological deficit, and patient able to move all 4 extremities. Extremities: Trace edema in lower extremities. Skin: Multiple round scars on legs. No rash or ecchymoses. Objective Labs 10/25/25 04:38 10/25/25 04:38 Labs: Laboratory Results - last 24 hr 10/24/25 04:30 WBC 7.8 RBC 4.20 L Hgb 12.9 L Hct 36.4 L MCV 87 MCH 30.7 MCHC 35.4 RDW Std Deviation 39.9 Plt Count 205 Neut % (Auto) 69 Lymph % (Auto) 22 [place] % (Auto) 7 Eos % (Auto) 2 Baso % (Auto) 0 Neut # (Auto) 5.4 Lymph # (Auto) 1.7 [place] # (Auto) 0.6 Eos # (Auto) 0.1 Baso # (Auto) 0.0 Immature Gran # (Auto) 0.02 H Absolute Nucleated RBC 0.00 Immature Gran % 0 Nucleated RBC % 0 APTT 60.3 H D Sodium 140 Potassium 3.6 Chloride 105 Carbon Dioxide 24.6 Anion Gap 10 BUN 27 H Creatinine 4.0 H Estim Creat Clear Calc 24.2 L eGFR 17 L BUN/Creatinine Ratio 7 L Glucose 176 H Calculated Osmolality 288 Calcium 8.0 L Corrected Calcium 8.6 Phosphorus 3.0 Magnesium 2.1 Total Bilirubin 0.5 AST 27 ALT 20 Alkaline Phosphatase 73 Total Protein 5.7 Albumin 3.2 L Globulin 2.5 Albumin/Globulin Ratio 1.3 Assessment & Plan Assessment and plan (1) Acute renal failure: Status: Acute (2) Hyperglycemia: Status: Acute (3) Dehydration: Status: Acute (4) Acute kidney injury: Status: Acute (5) DM (diabetes mellitus): Status: Acute (6) S/P CABG x 3: Status: Acute (7) Elevated troponin: Status: Acute Additional Assessment & Plan Additional Plan: Patient is a 49-year-old male with a history of insulin-dependent type 2 days mellitus, CAD status post CABG (2015), CKD, and hypertension who presented to [facility] ED on 10/19 from his PCPs office after being told that his creatinine was very high. Patient is admitted for management of GLORAI on CKD and intractable vomiting. Nephrology consulted for GLORIA on CKD. #GLORIA on CKD stage IIIb, likely prerenal 2/2 intractable vomiting - Presents with worsening intractable vomiting for the past month likely secondary to marijuana use for at least 10 years. Presented previously in January 2023 also for same complaint, also presented with GLORIA. - Creatinine 4.6 -> 4.0 -> 4.2 (baseline 1.9-2.2 in 01/2025). - eGFR 15 -> 17 (baseline 43 in 01/2025) - Renal ultrasound showed mild bilateral renal scar formation with cortical thinning, no hydronephrosis - UA showed 3+ protein, 2+ glucose, trace ketones, 1+ blood, rare bacteria. A1c 7.8. - Urine creatinine 84, urine protein greater than 250 - Likely prerenal given the patient's poor oral consumption from his worsening vomiting, which is likely cannabis hyperemesis syndrome. Plan: - Continue IV LR maintenance. Will hold off on dialysis as patient still has good UOP. - Strict ins and outs - Avoid nephrotoxic drugs - Renally dose medications - Renal diet modification #Diabetic nephropathy iso uncontrolled IDDM2 - Home medications include Januvia 100 mg daily, started 1 year ago by PCP - UA showed 3+ protein, 2+ glucose, trace ketones, 1+ blood, rare bacteria. A1c 7.8. - GFR 17 (baseline 43 in 01/2025) - Likely contributing to CKD IIIB Plan: - Insulin per primary team - Januvia at 25 mg daily #RTA type 4 - Potassium 4.1 on admission but previously as high as 5.8 in January 2025. - Bicarb 23.7 -> 20.9 - Positive urine anion gap (29.6), possibly RTA type 4 in setting of diabetes. Plan: - Sodium bicarb tablets 325 BID - Continue to monitor renal panel #Hypomagnesemia - Magnesium 1.5 Plan: - Replete accordingly - Keep Mg >2 #History of hypertension #Hypertensive urgency versus #Hypertensive emergency? #Leukocytosis #History of CAD status post CABG (2015) #History of acid reflux #Insulin-dependent type 2 diabetes mellitus #Marijuana use #Intractable vomiting 2 #Cannabis hyperemesis syndrome - Defer to primary team for management
[2025-10-24] MEDS: INSULIN LISPRO (AdmeLOG) 1 UNIT/0.01 ML UNIT SC (17:14)
[2025-10-24] MEDS: ATORVASTATIN CALCIUM 20 MG TABLET 40 MG PO (21:14)
[2025-10-25] VITALS (10 sets, daily range): BP systolic 157–167; BP diastolic 80–91; PULSE 74–89; RESP 15–19; TEMP 36.1–36.6; O2SAT 98–99
[2025-10-25 06:38] LABS: Basophils # (Auto) 0.0 Thou/mm3 (0.0-0.2); Basophils % (Auto) 0 % (0-2.5); Eosinophils # (Auto) 0.1 Thou/mm3 (0.0-0.5); Eosinophils % (Auto) 2 % (0-10); Hematocrit 35.6 % (41.0-53.0); Hemoglobin 12.4 g/dL (13.5-16.0); Immature Granulocytes Auto 0.03 Thou/mm3 (0.00-0.00); Lymphocytes # (Auto) 1.8 Thou/mm3 (1.0-4.8); Lymphocytes % (Auto) 22 % (10-50); Mean Corpuscular HGB Conc 34.8 g/dl (31.0-37.0); Mean Corpuscular Hemoglobin 30.6 pg (25.0-35.0); Mean Corpuscular Volume 88 fL (80-100); Monocytes # (Auto) 0.6 Thou/mm3 (0.0-0.8); Monocytes % (Auto) 8 % (0-12); Neutrophils # (Auto) 5.5 Thou/mm3 (1.8-7.7); Neutrophils % (Auto) 68 % (37-80); Nucleated Red Blood Cell # 0.00 Thou/mm3 (0.00-0.00); Nucleated Red Blood Cell % 0 /100 WBC (0); Platelet Count 234 Thou/mm3 (140-440); RDW Standard Deviation 40.8 fL (35.1-43.9); Red Blood Count 4.05 Miln/mm3 (4.50-5.90); White Blood Count 8.1 Thou/mm3 (3.8-10.6)
[2025-10-25 06:52] LABS: Partial Thromboplastin Time 24.7 Seconds (22.0-36.0)
[2025-10-25 07:35] LABS: Alanine Aminotransferase 34 U/L (10-49); Albumin, Serum 3.3 gm/dL (3.5-5.0); Albumin/Globulin Ratio 1.3 (1.2-2.2); Alkaline Phosphatase 75 U/L (46-116); Anion Gap 8 (7-16); Aspartate Amino Transferase 36 U/L (0-34); BUN/Creatinine Ratio 6 Ratio (12-20); Bilirubin,Total 0.5 mg/dL (0.3-1.2); Blood Urea Nitrogen 24 mg/dL (9-23); Calcium 8.2 mg/dL (8.3-10.6); Calcium (Corrected) 8.8 mg/dL (8.5-10.1); Carbon Dioxide 24.8 mMol/L (20.0-31.0); Chloride 106 mMol/L (98-107); Creatinine (Component) 4.0 mg/dL (0.6-1.3); Estimated Creatinine Clearance 24.2 mL/min (>60); Globulin 2.6 gm/dL (2.3-3.5); Glucose 161 mg/dL (74-106); Magnesium 1.7 mg/dL (1.6-2.6); Osmolality,Calculated 284 (275-295); Phosphorous 3.5 mg/dL (2.4-5.1); Potassium 3.8 mMol/L (3.4-5.1); Sodium 139 mMol/L (136-145); Total Protein 5.9 gm/dL (5.7-8.2); eGFR 17 See Note
--- NOTE | 2025-10-25 08:35 | ESPR_ITS ---
Documentation for date of: 10/25/25 Subjective Subjective Interval history: History of present illness: This patient is a 49-year-old male with a history of insulin-dependent type 2 days mellitus, CAD status post CABG (2016), CKD, and hypertension who presented to [facility] ED on 10/19 from his PCPs office after being told that his creatinine was very high. Patient is admitted for management of GLORIA on CKD and intractable vomiting. According to the patient, he has had issues with vomiting for at least a year, however he has had an acute worsening over the past month, however the patient is not exactly sure as he and his partner at bedside are not the best historians. The patient states that since about a month ago, he has been having increasing frequency of his vomiting and vomits may be 3 to 4 days out of the week on average, and when he does vomit, he will vomit may be up to 10 times a day. The patient states that nothing really seems to help it except for taking marijuana, for which he has been taking daily for over 10 years. Because of his excessive vomiting, the patient has been on unable to keep down most food and fluids, and additionally he has been unable to take some of his medications throughout the week as result of the vomiting. The patient's PCP has been following the patient's CKD and has been noticing that it has been going up. According to the patient, the patient's PCP was a bit concerned about the patient's Januvia as a cause of the patient's worsening renal function, however the patient has been taking Januvia since his CABG back in 2015. On the day of the admission, the patient's PCP noticed continued worsening of the patient's renal function labs, and told the patient to seek care at [facility] ED. The patient does not follow any microfilm mounter and has not followed up with any braille translator for his CAD status post CABG. Patient denies any fevers, chills, chest pain, shortness of breath, abdominal pain, dysuria, and headaches. ED course: Initial vitals significant for blood pressure of 148/92 and heart rate of 113. Initial labs significant for WBC 16.4, BUN 34, creatinine 4.6, lipase 124, and urinalysis positive for 3+ protein, 2+ glucose, and 1+ blood. Gallbladder ultrasound unremarkable. Patient was given 2 L of NS, Zofran, and Protonix in ED. Current Medication(s): Pending med rec Allergies (w/ Reactions): NKDA Family History: Noncontributory, mother has hypertension Patient was admitted for management of GLORIA on CKD and intractable vomiting. Nephrology consulted for GLORIA on CKD. 10/20/25: Patient seen and assessed at bedside. Had rapid response this morning due to chest pressure and nausea, reports that pain improved after given nitroglycerin. S/p 2L IVF and LR maintenance fluids overnight. Creatinine 4.0 from 4.6, improving. GFR 17. 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 Urine anion gap elevated, started on sodium bicarb 325 mg BID. Continue fluids as patient is likely azotemic from intractable vomiting. Restart Januvia 25 mg daily for glucose and renal protection. 10/21/25: Patient seen and assessed at bedside. UOP 1 L. BUN 42, creatinine 4.2, GFR 15. Glucose 166. Magnesium 1.5, repleted. Continue Januvia and sodium bicarb tablets. 10/22/25: Patient seen and assessed at bedside. Maintaining good urine output. Creatinine increased to 4.3. Creatinine is not improving but no indication for hemodialysis at this time. May need dialysis if cardiology wants to pursue with cardiac catheterization. 10/23/25: Patient seen and assessed at bedside. UOP 1.2L. Creatinine 4.0 (from 4.3), improving. Magnesium 1.6, repleted. Continue IV LR maintenance, Januvia, and sodium bicarb tablets. Will continue to monitor. 10/25/25: Patient seen and assessed at bedside with partner present. BP systolic 160s-170s. UOP 1.2L. Creatinine has been stable at 4.0 for the past 3 days. No need for dialysis at this time as GFR remains stable at 17; however discussed with patient that he may require dialysis in the future. Patient is medically stable for discharge from nephrology standpoint. Suspect diabetic nephropathy in addition to recovering ATN. Add valsartan 40 mg daily. Continue Januvia. Recommend discharge with [facility]. Will obtain referral from PCP and follow up in clinic outpatient in 1 week with renal panel. Exam Vital Signs Temp Pulse Resp BP Pulse Ox O2 Del Method 97.6 F 87 15 157/81 H 98 Room Air 10/25/25 08:00 10/25/25 08:00 10/25/25 08:00 10/25/25 08:00 10/25/25 08:00 10/25/25 08:00 Narrative Exam Physical Exam General: Awake and in no acute distress. Conversational and non-toxic appearing. HEENT: Normocephalic, atraumatic, mucous membranes moist. Heart: Regular rate and rhythm, normal S1 and S2, no murmurs appreciated. Lungs: Clear to auscultation with no wheezing or crackles. Abdomen: Soft, nondistended, nontender, positive bowel sounds. No guarding or rebound tenderness. Neurologic: Alert and oriented x3, no gross neurological deficit, and patient able to move all 4 extremities. Extremities: No edema. Skin: Multiple round scars on legs. No rash or ecchymoses. Objective Labs 10/25/25 04:38 10/25/25 04:38 Labs: Laboratory Results - last 24 hr 10/25/25 04:38 WBC 8.1 RBC 4.05 L Hgb 12.4 L Hct 35.6 L MCV 88 MCH 30.6 MCHC 34.8 RDW Std Deviation 40.8 Plt Count 234 Neut % (Auto) 68 Lymph % (Auto) 22 Sioux % (Auto) 8 Eos % (Auto) 2 Baso % (Auto) 0 Neut # (Auto) 5.5 Lymph # (Auto) 1.8 Sioux # (Auto) 0.6 Eos # (Auto) 0.1 Baso # (Auto) 0.0 Immature Gran # (Auto) 0.03 H Absolute Nucleated RBC 0.00 Immature Gran % 0 Nucleated RBC % 0 APTT 24.7 D Sodium 139 Potassium 3.8 Chloride 106 Carbon Dioxide 24.8 Anion Gap 8 BUN 24 H Creatinine 4.0 H Estim Creat Clear Calc 24.2 L eGFR 17 L BUN/Creatinine Ratio 6 L Glucose 161 H Calculated Osmolality 284 Calcium 8.2 L Corrected Calcium 8.8 Phosphorus 3.5 Magnesium 1.7 Total Bilirubin 0.5 AST 36 H ALT 34 Alkaline Phosphatase 75 Total Protein 5.9 Albumin 3.3 L Globulin 2.6 Albumin/Globulin Ratio 1.3 Quality Measures Quality Measures VTE prophylaxis Assessment & Plan Assessment Current Active Medications: Generic Name Dose Route Start Last Admin Trade Name Freq PRN Reason Stop Dose Admin Acetaminophen 650 mg 10/19/25 21:12 Acetaminophen 325 Mg Tablet PO 11/18/25 21:11 Q6H PRN Fever >101.5 or pain 1-3 Aspirin 81 mg 10/21/25 09:00 10/24/25 08:50 Aspirin Ec 81 Mg Tabec PO 11/20/25 08:59 81 mg QDAY ALEXANDRA Administration Atorvastatin Calcium 40 mg 10/20/25 21:00 10/24/25 21:14 Atorvastatin Calcium 20 Mg Tablet PO 11/19/25 20:59 40 mg HS ALEXANDRA Administration Capsaicin 0 gm 10/20/25 09:45 10/25/25 06:18 Capsaicin Cr 60 Gm Tube TOP 11/19/25 09:44 Not Given TID ALEXANDRA Clopidogrel Bisulfate 75 mg 10/20/25 09:00 10/24/25 08:50 Clopidogrel Bisulfate 75 Mg Tablet PO 11/19/25 08:59 75 mg QDAY ALEXANDRA Administration Dextrose 25 ml 10/19/25 21:19 Dextrose 50%-Water Inj 50 Ml Syringe IV 11/18/25 21:18 Q15MIN PRN BG 50-70 responsive npo pt Dextrose 50 ml 10/19/25 21:19 Dextrose 50%-Water Inj 50 Ml Syringe IV 11/18/25 21:18 Q15MIN PRN BG <50 OR BG <70 & pt unresponsive Glucagon 1 mg 10/19/25 21:19 Glucagon Inj 1 Mg Vial IM Q15MIN PRN BG <70, and no IV access Hydralazine HCl 10 mg 10/22/25 05:05 10/23/25 08:21 Hydralazine Inj 20 Mg/Ml Vial IVP 11/19/25 04:07 10 mg Q4H PRN Administration Give if SBP >175 Hydralazine HCl 25 mg 10/23/25 09:00 10/25/25 05:50 Hydralazine Hcl 25 Mg Tablet PO 11/22/25 08:59 25 mg TID ALEXANDRA Administration Insulin Human Lispro 0 unit 10/25/25 06:00 10/25/25 06:38 Insulin Lispro (Admelog) 1 Unit/0.01 Ml Unit SC 11/24/25 05:59 Not Given Q6HR [facility] Protocol Metoprolol Tartrate 50 mg 10/20/25 09:00 10/24/25 21:14 Metoprolol Tartrate 25 Mg Tablet PO 11/19/25 08:59 50 mg BID ALEXANDRA Administration Nifedipine 90 mg 10/20/25 09:00 10/24/25 08:50 Nifedipine Xl 30 Mg Tabcr PO 11/19/25 08:59 90 mg QDAY ALEXANDRA Administration Ondansetron HCl 4 mg 10/19/25 21:12 Ondansetron Inj 2 Mg/Ml Inj 2 Ml IVP 11/18/25 21:11 Q6H PRN NAUSEA OR VOMITING Protocol Pantoprazole Sodium 40 mg 10/20/25 09:00 10/24/25 08:50 Pantoprazole Inj 40 Mg Vial IVP 11/19/25 08:59 40 mg QDAY ALEXANDRA Administration Sennosides 1 tab 10/19/25 22:11 Senna/Docusate Sod 1 Tab Tablet PO 11/18/25 22:10 QDAY PRN CONSTIPATION Protocol Sitagliptin Phosphate 25 mg 10/21/25 09:00 10/24/25 08:50 Sitagliptin Phosphate 50 Mg Tablet PO 11/20/25 08:59 25 mg QDAY ALEXANDRA Administration Plan Patient is a 49-year-old male with a history of insulin-dependent type 2 days mellitus, CAD status post CABG (2015), CKD, and hypertension who presented to [facility] ED on 10/19 from his PCPs office after being told that his creatinine was very high. Patient is admitted for management of GLORIA on CKD and intractable vomiting. Nephrology consulted for GLORIA on CKD. #GLORIA on CKD stage IIIb, likely ATN 2/2 intractable vomiting and decreased PO intake - Presents with worsening intractable vomiting for the past month likely secondary to marijuana use for at least 10 years. Presented previously in January 2023 also for same complaint, also presented with GLORIA. - Creatinine 4.6 -> 4.0 -> 4.2 (baseline 1.9-2.2 in 01/2025). - eGFR 15 -> 17 (baseline 43 in 01/2025) - Renal ultrasound showed mild bilateral renal scar formation with cortical thinning, no hydronephrosis - UA showed 3+ protein, 2+ glucose, trace ketones, 1+ blood, rare bacteria. A1c 7.8. - Urine creatinine 84, urine protein greater than 250 - Likely prerenal given the patient's poor oral consumption from his worsening vomiting, which is likely cannabis hyperemesis syndrome. Plan: - Creatinine has been stable at 4.0 for the past 3 days. No need for dialysis at this time as GFR remains stable at 17; however discussed with patient that he may require dialysis in the future. - Patient is medically stable for discharge from nephrology standpoint, suspect diabetic nephropathy in addition to recovering ATN from decreased PO intake. Will obtain referral from PCP and follow up in clinic outpatient in 1 week with renal panel. - Add valsartan 40 mg daily - Strict ins and outs - Avoid nephrotoxic drugs - Renally dose medications - Renal diet modification #Diabetic nephropathy iso uncontrolled IDDM2 - Home medications include Januvia 100 mg daily, started 1 year ago by PCP - UA showed 3+ protein, 2+ glucose, trace ketones, 1+ blood, rare bacteria. - A1c 7.8 (13 in January 2025). - GFR 17 (baseline 43 in 01/2025) - Likely superimposed on GLORIA/CKD IIIB Plan: - Insulin per primary team - Januvia 25 mg daily iso low GFR - Add valsartan 40 mg daily #RTA type 4 - Potassium 4.1 on admission but previously as high as 5.8 in January 2025. - Bicarb 23.7 -> 20.9 - Positive urine anion gap (29.6), possibly RTA type 4 in setting of diabetes. Plan: - Sodium bicarb tablets 325 BID - Continue to monitor renal panel #History of hypertension - Continue hydralazine 25 mg TID, nifedipine 90 QD, metoprolol tartrate 50 BID - Add valsartan 40 mg daily as above #Hypomagnesemia - Magnesium 1.5 -> 1.7 Plan: - Replete accordingly - Keep Mg >2 #Hypertensive urgency versus #Hypertensive emergency? #Leukocytosis #History of CAD status post CABG (2015) #History of acid reflux #Insulin-dependent type 2 diabetes mellitus #Marijuana use #Intractable vomiting 2/2 #Cannabis hyperemesis syndrome - Defer to primary team for management Thank you for your consultation, please do not hesitate to reach out if you have any question or concern Patient plan of care was discussed with the attending physician, Dr. Cabral. Joy Stone DO, PGY-1 Attending Provider Attestation/Addendum Patient seen and examined with resident physician Dr. Stone. Note reviewed, agree with findings and recommendations. Patient currently seen in medical floor. Creatinine stable at 4, GFR 17. Clinically stable. Renal santana stable for discharge. Will see him in the office in 1 week with a renal panel prior. Spoke to his at bedside
[2025-10-25] MEDS: VALSARTAN 40 MG TABLET PO (09:14)
[2025-10-25] MEDS: MAGNESIUM OXIDE 400 MG TABLET PO (09:15)
[2025-10-25] MEDS: ASPIRIN EC 81 MG TABEC PO (09:15)
[2025-10-25] MEDS: CLOPIDOGREL BISULFATE 75 MG TABLET PO (09:15)
[2025-10-25] MEDS: NIFEdipine XL 30 MG TABCR 90 MG PO (09:16)
[2025-10-25] MEDS: METOPROLOL TARTRATE 25 MG TABLET 50 MG PO (09:16)
[2025-10-25] MEDS: INSULIN LISPRO (AdmeLOG) 1 UNIT/0.01 ML UNIT SC (12:07)
--- NOTE | 2025-10-25 14:54 | PC.NURSE ---
DISCHARGE INSTRUCTIONS GIVEN WAITING ON TRANSPORTATION.
--- NOTE | 2025-10-25 15:03 | ESDS_ITS ---
<Statement entered by Damien Maldonado MD - 10/25/25 16:14> I saw and examined patient personally and supervised PGY 1 resident, Dr. Carver with formulating a discharge plan. I agree with the documentation as listed below. Plan of care discussed with Attending Dr. Maryann Maldonado MD PGY 2 Disclaimer: This note was dictated by speech recognition. Minor errors in edge grinder may be present due to voice recognition software. Planned Discharge Date 10/25/25 DS: Providers Provider Date of admission: 10/19/25 21:19 Primary care physician: Physician No Primary/Family Admitting Provider: Horacio Raymundo MD Attending Provider on Admission: Horacio Raymundo MD Consults: 10/19/25 20:21 Consult to Nephrology Stat Comment: Dr. Cabral Consulting Provider: Burak Cabral 10/19/25 21:21 Referral Wound Care Routine Comment: 10/19/25 21:22 Health [facility]ity Referral - Knowledge Deficit Routine Comment: Positive screening for knowledge deficit needs. 10/20/25 07:47 Consult to Cardiology Routine Comment: Consulting Provider: Sherri Roland Attending Provider on DC: Dez Lorenzo MD Discharging Provider: Dez Lorenzo MD DS: Diagnosis Problem List Completed Was Problem List Reviewed/Reconciled?: Yes Hospital Course Hospital Course Hospital course: Hospital Course: Patient is a 49-year-old male with PMH of T2DM, HTN, CKD, IDDM, CAD status post CABG [2016] presented to the hospital from PCP in view of abnormal labs on routine workup. Reported that he had intractable nausea and vomiting for few days before admission. Admitted for acute on chronic kidney disease secondary to suspected cyclical vomiting syndrome. Rapid response was called early in the AM on 10/20/2025 due tochest discomfort, heartburn. Was given pantoprazole, metoclopramide. EKG did not show any significant ST and T wave changes. Noted to have elevated troponin. Second rapid called later in AM on 10/20/25 for chest pain radiating to L arm, given nitroglycerin, zofran, and repeat troponin. On 10/21/25, troponin trended up to 3.67, creatinine trended up to 4.2. The patient was given IV fluid, and repeat urine electrolytes were ordered. On 10/22/25, creatinine was not improving, and nephrology said no indication for hemodialysis. On 10/23/25, hydralazine 25 TID was started due to BP > 190 systolic, nephrology continuing to monitor for GLORIA. On 10/24/25, nephrology was considering temporary dialysis due to creatinine remaining at 4. On 10/25/25, nephrology decided to not do temporary dialysis as renal function was stable, and patient was considered stable for discharge. Discharge Instructions: ? He has been started on hydralazine 25 mg 3 times a day for blood pressure ? We have stopped amlodipine and started you on nifedipine for blood pressure. ? We have started you on valsartan for protection of your kidneys and blood pressure. ? Repeat a renal panel in 1 week before your visit with Dr. Cabral. The nurse will give you the request. ? Follow-up with Dr. Cabral within 1 week of discharge ? Follow-up with Dr. Roland within 1 week of discharge - Follow up with your primary care physician within 1 week of discharge. If you do not have a primary care physician, please follow up with the [facility] Residents clinic ([phone]) ? If you experience any new, worsening or persistent symptoms either call your primary doctor, or dial 911 or present to the emergency department. Problem List: #ACS #History of CAD status post CABG (2015) #Newly diagnosed diastolic CHF Stage 1 (EF 60-65%) #GLORIA on CKD stage IIIb, likely prerenal #Intractable vomiting (resolved) 2/2 #Cannabis hyperemesis syndrome #History of hypertension #Hypertensive urgency versus emergency #Leukocytosis #History of Insulin-dependent T2DM #Diabetic nephropathy #History of acid reflux Status at Discharge Functional status at discharge: independent ambulation Overall status at discharge: patient is progressing back to baseline Time Spent with Patient Time attestation: Total time spent providing and/or coordinating discharge services: Time spent: Greater than 30 minutes Exam Vital Signs Temp Pulse Resp BP Pulse Ox O2 Del Method 97.8 F 84 15 158/87 H 99 Room Air 10/25/25 12:00 10/25/25 14:36 10/25/25 12:00 10/25/25 14:36 10/25/25 12:00 10/25/25 12:00 Narrative Exam General: Alert and oriented x3. In no acute distress. Eyes: Pupils are equal and reactive to light bilaterally. HEENT: Atraumatic, normocephalic. No JVD noted. Cardiovascular: Normal S1 and S2. Normal rate and regular rhythm. No murmurs appreciated. No peripheral pitting edema noted. No JVD noted. Respiratory: No respiratory distress. Lungs are clear to auscultation bilaterally. No wheezing or crackles heard. Abdomen: Soft, nontender, nondistended. Skin: No rash. Musculoskeletal: No gross injuries. Able to move all 4 extremities. Neuro: Alert and oriented x3. Sensation is intact throughout. Strength is 5/5 and symmetric. No focal neuro deficits. Psych: Normal affect and mood. Discharge Plan Plan Patient Disposition: HOME (Self Care) Patient condition on transfer: Stable and Benefits outweigh risks Care Plan Goals: ? He has been started on hydralazine 25 mg 3 times a day for blood pressure ? We have stopped amlodipine and started you on nifedipine for blood pressure. ? We have started you on valsartan for protection of your kidneys and blood pressure. ? Repeat a renal panel in 1 week before your visit with Dr. Cabral. The nurse will give you the request. ? Follow-up with Dr. Cabral within 1 week of discharge ? Follow-up with Dr. Roland within 1 week of discharge - Follow up with your primary care physician within 1 week of discharge. If you do not have a primary care physician, please follow up with the [facility] Residents clinic ([phone]) ? If you experience any new, worsening or persistent symptoms either call your primary doctor, or dial 911 or present to the emergency department. Prescriptions/Referrals Prescriptions/Med Rec: New hydralazine 25 mg Tablet 25 mg PO TID 30 Days Qty: 90 1RF nifedipine 90 mg tablet extended release 90 mg PO QDAY 30 Days Qty: 30 1RF valsartan 40 mg Tablet 40 mg PO QDAY 30 Days Qty: 30 0RF Continued clopidogrel [Plavix] 75 MG tablet 75 mg PO QDAY Qty: 0 famotidine [Pepcid] 20 MG tablet 20 mg PO QDAY Qty: 0 Patient Comments: TO SUPPRESS GASTRIC ACID SECRETION metoprolol tartrate 25 MG tablet 50 mg PO BID Qty: 0 atorvastatin 40 mg tablet 40 mg PO QDAY Patient Comments: TAKE 1 TABLET BY MOUTH EVERY DAY FOR 90 DAYS insulin glargine [Basaglar KwikPen U-100 Insulin] 100 unit/mL (3 mL) insulin pen 49 unit SUBCUT QDAY Patient Comments: INJECT 49 UNITS SUBCUTANEOUSLY EVERY DAY Januvia 100 mg tablet 100 mg PO QDAY aspirin 81 mg tablet 81 mg PO QDAY Discontinued amlodipine [Norvasc] 10 MG tablet 10 mg PO QDAY Qty: 0 Referrals: No Primary/Family,Physician [Primary Care Provider] Sherri Roland MD [Physician, Cardiology] Burak Cabral MD [Physician, Nephrology] Outpatient Orders (i.e. Home Health, Labs, Imaging): Renal Function Panel (Routine) Timeframe: 1 Week Location: Determined by Patient Ordered By: Damien Maldonado Patient/Caregiver Discharge Instructions Education Materials: CKD Dc Print Language: Mongolian Stand Alone Forms: Reina Award Info., Patient Portal Info Letter Discharge Order Discharge Orders: Discharge (Routine); Ordered 10/25/25 Ordered By: Damien Maldonado Quality Discharge Quality Measures none MD Attestestation MD Attestation Follow up with PCP as scheduled. Return to ER for recurrent symptoms. Discussed with housestaff.
== END 2025-10-25 15:31 | disposition home or self-care (01) | DRG 469 ==
LOC: SERX 20:43 → SERHOLD 10-20 06:30 → S3NX 10-20 06:30 → S3SX 10-20 07:26 → S3NX 10-21 19:24
PROVIDERS: Nurse Practitioner Family; Student in an Organized Health Care Education/Training Program; Admitting Provider Student in an Organized Health Care Education/Training Program; Emergency Provider Emergency Medicine; Visit Provider Student in an Organized Health Care Education/Training Program
DX: N17.9 Acute kidney failure, unspecified (principal); Z79.4 Long term (current) use of insulin; E11.21 Type 2 diabetes mellitus with diabetic nephropathy; K21.9 Gastro-esophageal reflux disease without esophagitis; Z95.1 Presence of aortocoronary bypass graft; I25.10 Atherosclerotic heart disease of native coronary artery without angina pectoris; E11.22 Type 2 diabetes mellitus with diabetic chronic kidney disease; E11.65 Type 2 diabetes mellitus with hyperglycemia; E83.42 Hypomagnesemia; E86.0 Dehydration; I13.0 Hypertensive heart and chronic kidney disease with heart failure and stage 1 through stage 4 chronic kidney disease, or unspecified chronic kidney disease; I50.30 Unspecified diastolic (congestive) heart failure; N18.32 Chronic kidney disease, stage 3b; R11.16 Cannabis hyperemesis syndrome; I16.1 Hypertensive emergency; Z79.02 Long term (current) use of antithrombotics/antiplatelets; Z79.82 Long term (current) use of aspirin; Z79.84 Long term (current) use of oral hypoglycemic drugs; Z79.899 Other long term (current) drug therapy
CPT/HCPCS: 36415; 71045; 74176; 76705; 76770; 80053; 80061; 81001; 82436; 82570; 83036; 83690; 83735; 84100; 84133; 84156; 84300; 84484; 85025; 85610; 85730; 93005; 93225; 93306; 96361; 96374; 96375; 99284; J0360; J1644; J1815; J2405; J2470; J2765; J3475; J7030; J7120; A9270